=== PATIENT | female | born 1960 | race Caucasian/White ===

== ENCOUNTER 2017-12-24 09:15 | Inpatient (IN) | payer MEDICARE, MEDICAID ==
--- NOTE | 2017-12-24 09:40 | ER Document Report ---
ED Fall - General Chief Complaint: Fall Injury Stated Complaint: FALL KNEE PAIN Time Seen by Provider: 12/24/17 09:40 Mode of Arrival: Medic Information source: Patient Notes: 57 yo female psychiatric schizophrnia ([facility] of [facility]) pt that lives at [facility] slipped on wet floor and landed on bent left knee causing instant bruising, abrasion, swelling and inability to raise leg on her own. Denies back, head or neck injury or pain. Brought in by EMS. NO previous fx. Tetanus not current that the nurse can find so will update her. TRAVEL OUTSIDE OF THE [place] IN LAST 30 DAYS: No - Related data Allergies/Adverse Reactions: No Known Allergies Allergy (Verified 12/24/17 09:23) Past Medical History - General Information source: Patient - Social History Smoking Status: Unknown if Ever Smoked Frequency of alcohol use: None Drug Abuse: None Family History: Reviewed & Not Pertinent Patient has suicidal ideation: No Patient has homicidal ideation: No - Past Medical History Cardiac Medical History: Reports: Hx Hypercholesterolemia, Hx Hypertension Pulmonary Medical History: 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 GI Medical History: Reports: Hx Gastroesophageal Reflux Disease Psychiatric Medical History: Reports: Hx Depression, Hx Schizophrenia - Immunizations Hx Diphtheria, Pertussis, Tetanus Vaccination: No Review of Systems - Review of Systems Constitutional: No symptoms reported EENT: No symptoms reported Cardiovascular: No symptoms reported Respiratory: No symptoms reported Gastrointestinal: No symptoms reported Genitourinary: No symptoms reported Female Genitourinary: No symptoms reported Musculoskeletal: See HPI Skin: No symptoms reported Hematologic/Lymphatic: No symptoms reported Neurological/Psychological: No symptoms reported Physical Exam - Vital signs Vitals: Temp Pulse Resp BP Pulse Ox 97.2 F 73 16 118/71 97 12/24/17 09:25 12/24/17 09:25 12/24/17 09:25 12/24/17 09:25 12/24/17 09:25 Interpretation: Normal - General General appearance: Appears well, Alert - HEENT Head: Normocephalic, Atraumatic Eyes: Normal Pupils: PERRL Neck: Supple - Respiratory Respiratory status: No respiratory distress Chest status: Nontender Breath sounds: Normal Chest palpation: Normal - Cardiovascular Rhythm: Regular Heart sounds: Normal auscultation Murmur: No - Abdominal Inspection: Normal Distension: No distension Bowel sounds: Normal Tenderness: Nontender Organomegaly: No organomegaly - Back Back: Normal, Nontender - Extremities General upper extremity: Normal inspection, Nontender, Normal color, Normal ROM , Normal temperature General lower extremity: Tender, Edema, Other - bruising and swelling to anterior left knee, superficial abrasion, unable to lift leg off the pillow, non tender posterior knee, no swelling. No: Normal strength, Normal weight bearing - Neurological Neuro grossly intact: Yes Cognition: Normal Orientation: AAOx4 [place] Coma Scale Eye Opening: Spontaneous [place]enna Coma Scale Verbal: Oriented Jenna Coma Scale Motor: Obeys Commands [place] Coma Scale Total: 15 Speech: Normal Motor strength normal: LUE, RUE, LLE, RLE Sensory: Normal - Psychological Associated symptoms: Normal affect, Normal mood - Skin Skin Temperature: Warm Skin Moisture: Dry Skin Color: Normal Course - Re-evaluation Re-evalutation: 12/24/17 10:[address] pena, she has comminuted patellar fx with proximal traction of fragments. - Vital Signs Vital signs: Temp Pulse Resp BP Pulse Ox 97.5 F 87 16 127/60 H 100 12/25/17 10:57 12/25/17 10:57 12/25/17 10:57 12/25/17 10:57 12/25/17 10:57 - Laboratory Result Diagrams: 12/24/17 12:05 Laboratory results interpreted by me: 12/24/17 12:05 WBC 13.8 H Absolute Neutrophils 9.8 H Discharge - Discharge Clinical Impression: Patellar fracture Qualifiers: Encounter type: initial encounter Fracture type: closed Fracture morphology: comminuted Fracture alignment: displaced Laterality: left Qualified Code(s): S82.042A - Displaced comminuted fracture of left patella, initial encounter for closed fracture Condition: Good Disposition: ADMITTED INPATIENT Admitting Provider: [facility] Admitted: Surgical Floor
[2017-12-24] MEDS ORDERED: ACETAMINOPHEN 325 MG TABLET PO ONE (10:09)
--- NOTE | 2017-12-24 10:32 | RADIOLOGY REPORT (SQ) ---
EXAM DESCRIPTION: KNEE LEFT 4 VIEW COMPLETED DATE/TIME: 12/24/2017 10:06 am REASON FOR STUDY: fall fell directly on the knee cap, obvious Clinical deformity COMPARISON: None. NUMBER OF VIEWS: Four views. TECHNIQUE: AP, lateral, and both oblique radiographic images acquired of the left knee. LIMITATIONS: None. FINDINGS: MINERALIZATION: Osteopenic BONES: Acute transverse mildly comminuted fracture through the upper 3rd of the patella, with 6 cm of proximal retraction of the proximal patellar fragments. Distal femur, proximal tibia and fibula int act. JOINT: Small suprapatellar knee joint effusion SOFT TISSUES: Diffuse prepatellar soft tissue swelling. Soft tissue swelling low anterior thigh. No radiopaque foreign body or soft tissue gas OTHER: No other significant finding. IMPRESSION: Acute mildly comminuted transverse fracture of the upper 3rd patella, with proximal retr action of the upper patellar fragments by 6 mm TECHNICAL DOCUMENTATION: JOB ID: [id number] [employer]- All Rights Reserved Reading location - IP/workstation name: [email or web address]
[2017-12-24] MEDS ORDERED: DIPH/PERTUSS(ACELL)/TETANUS VAC/PF 0.5 ML SYR (>=10YO) IM ONE (10:55)
[2017-12-24] MEDS ORDERED: OXYCODONE HCL IR 5 MG TABLET PO ONE (10:55)
--- NOTE | 2017-12-24 12:23 | RADIOLOGY REPORT (SQ) ---
EXAM DESCRIPTION: CHEST SINGLE VIEW COMPLETED DATE/TIME: 12/24/2017 11:38 am REASON FOR STUDY: preop COMPARISON: 02/06/2016 EXAM PARAMETERS: NUMBER OF VIEWS: One view. TECHNIQUE: Single frontal radiographic view of the chest acquired. RADIATION DOSE: NA LIMITATIONS: None. FINDINGS: LUNGS AND PLEURA: No opacities, masses or pneumothorax. No pleural effusion. MEDIASTINUM AND HILAR STRUCTURES: No masses. Contour normal. HEART AND VASCULAR STRUCTURES: Heart normal in size. Normal vasculature. BONES: No acute findings. HARDWARE: None in the chest. OTHER: No other significant finding. IMPRESSION: NO ACUTE RADIOGRAPHIC FINDING IN THE CHEST. TECHNICAL DOCUMENTATION: JOB ID: [id number] [employer]- All Rights Reserved Reading location - IP/workstation name: [email or web address]
[2017-12-24 12:24] LABS: ABSOLUTE BASOPHILS # (AUTO) 0.1 10^3/uL (0.0-0.2); ABSOLUTE EOSINOPHILS # (AUTO) 0.1 10^3/uL (0.0-0.6); ABSOLUTE LYMPHOCYTES (AUTO) 2.7 10^3/uL (0.5-4.7); ABSOLUTE MONOCYTES (AUTO) 1.1 10^3/uL (0.1-1.4); ABSOLUTE NEUT (AUTO) 9.8 10^3/uL (1.7-8.2); BASOPHILS % (AUTO) 0.8 % (0-2); EOSINOPHILS % (AUTO) 0.7 % (0-6); HEMATOCRIT 41.6 % (36.0-47.0); HEMOGLOBIN 14.2 g/dL (12.0-15.5); LYMPHOCYTES % (AUTO) 19.3 % (13-45); MEAN CORPUSCULAR HEMOGLOBIN 31.4 pg (27.0-33.4); MEAN CORPUSCULAR HGB CONC 34.1 g/dL (32.0-36.0); MEAN CORPUSCULAR VOLUME 92 fl (80-97); MONOCYTES % (AUTO) 8.2 % (3-13); PLATELET COUNT 331 10^3/uL (150-450); RED BLOOD COUNT 4.52 10^6/uL (3.72-5.28); RED CELL DISTRIBUTION WIDTH 13.5 % (11.5-14.0); TOTAL CELLS COUNTED % (AUTO) 100 %; WHITE BLOOD COUNT 13.8 10^3/uL (4.0-10.5)
[2017-12-24 12:55] LABS: INTERNATIONAL RATION (INR) 0.94
[2017-12-24 12:56] LABS: PARTIAL THROMBOPLASTIN TIME 31.8 SEC (23.5-35.8)
[2017-12-24 13:24] LABS: APPEARANCE,URINE CLEAR; BILIRUBIN,URINE NEGATIVE (NEGATIVE); COLOR,URINE YELLOW; GLUCOSE, URINE NEGATIVE (NEGATIVE); KETONES,URINE NEGATIVE (NEGATIVE); LEUKOCYTE ESTERASE,URINE NEGATIVE (NEGATIVE); NITRITE,URINE NEGATIVE (NEGATIVE); PROTEIN,URINE NEGATIVE (NEGATIVE); URINE SPECIFIC GRAVITY 1.009; UROBILINOGEN,URINE NEGATIVE mg/dL (<2.0)
--- NOTE | 2017-12-24 19:44 | PDOC H&P ---
History of Present Illness Admission Date/PCP: 12/24/17 12:29 SHANE AVALOS MD Patient complains of: Left knee pain and swelling History of Present Illness: KATHRINE CHAPPELL is a 57 year old female female who is in assisted living for psychiatric reasons. Patient stepped slipped on a wet surface and fell onto her left knee. Immediately had pain swelling and difficulty lifting the leg. She was brought to the hospital where she was diagnosed with a displaced patella fracture on the left. Patient denies any other extremity injuries or pain or loss of consciousness. Complains of a 5 out of 5 pain over the anterior knee with inability to straight leg raise. Weakness second to pain and swelling. Denies any numbness or tingling or paresthesias. Past Medical History Cardiac Medical History: Reports: Hyperlipidema, Hypertension Pulmonary Medical History: Reports: Chronic Obstructive Pulmonary Disease (COPD ) - Emphysema Comment Only: Tuberculosis - unknown GI Medical History: Reports: Gastroesophageal Reflux Disease Psychiatric Medical History: Reports: Depression Social History Smoking Status: Unknown if Ever Smoked Frequency of Alcohol Use: None Hx Recreational Drug Use: No Drugs: None Hx Prescription Drug Abuse: No - Advance Directive Resuscitation Status: Full Code Family History Family History: Reviewed & Not Pertinent Parental Family History Reviewed: No Children Family History Reviewed: No Sibling(s) Family History Reviewed.: No Medication/Allergy Home Medications: Acetaminophen [Tylenol 325 mg Tablet] 650 mg PO Q4HP PRN 12/24/17 Albuterol Sulfate [Proair HFA Inhalation Aerosol 8.5 gm MDI] 2 puff IH Q6HP PRN 12/24/17 Aspirin [Aspirin 81 mg Chewable Tablet] 81 mg PO DAILY 12/24/17 Calcium Carbonate [Tums Chewable 500 mg Tab.chew] 1,000 mg PO ASDIR PRN Calcium Carbonate/Vitamin D3 [Calcium 500 + Vit D Caplet] 1 tab PO DAILY Cetirizine HCl [Zyrtec 10 mg Tablet] 10 mg PO DAILY 12/24/17 Clopidogrel Bisulfate [Plavix 75 mg Tablet] 75 mg PO DAILY 12/24/17 Cyanocobalamin (Vitamin B-12) [Vitamin B-12] 1,000 mcg PO DAILY 12/24/17 Divalproex Sodium [Depakote ER 250 mg Tablet] 250 mg PO BID 12/24/17 Docusate Sodium [Colace 100 mg Capsule] 200 mg PO DAILY 12/24/17 Doxepin HCl 100 mg PO QHS 12/24/17 Furosemide [Lasix 20 mg Tablet] 20 mg PO DAILY 12/24/17 Guaifenesin [Robitussin Syrup 200 mg/10 ml Ud Cup] 100 mg PO Q4HP PRN 12/24/17 Guanfacine HCl 0.5 mg PO BID 12/24/17 Isosorbide Mononitrate [Imdur 30 mg Tablet.er] 30 mg PO DAILY 12/24/17 Lisinopril [Zestril] 20 mg PO BID 12/24/17 Loperamide HCl [Imodium A-D] 2 mg PO DAILYP PRN 12/24/17 Lorazepam [Ativan 0.5 mg Tablet] 0.5 mg PO TID 12/24/17 Magnesium Hydroxide [Milk of Magnesia 30 ml Udcup] 30 ml PO BIDP PRN 12/24/17 Methylcellulose [Fiber Therapy] 1,000 mg PO BID 12/24/17 Metoprolol Tartrate [Lopressor 50 mg Tablet] 50 mg PO Q12 12/24/17 Olanzapine/Fluoxetine HCl [Symbyax 6-25 mg Capsule] 1 cap PO QHS 12/24/17 Pantoprazole Sodium [Protonix] 40 mg PO DAILY 12/24/17 Polyethylene Glycol 3350 [Miralax Powder 17 gm/Packet] 17 gm PO DAILY 12/24/17 Ranolazine [Ranexa 500 mg Tab.sr] 500 mg PO BID 12/24/17 Simvastatin [Zocor 20 mg Tablet] 20 mg PO QPM 12/24/17 Allergies/Adverse Reactions: No Known Allergies Allergy (Verified 12/24/17 09:23) Review of Systems Review of Systems: Constitutional: [PRESENT: as per HPI. ABSENT: chills, fever(s), headache(s), weight gain, weight loss] Eyes: [ABSENT: visual disturbances] Ears: [ABSENT: hearing changes] Cardiovascular: [ABSENT: chest pain, dyspnea on exertion, edema, orthropnea, palpitations] Respiratory: [ABSENT: cough, hemoptysis] Gastrointestinal: [ABSENT: abdominal pain, constipation, diarrhea, hematemesis, hematochezia, nausea, vomiting] Genitourinary: [ABSENT: dysuria, hematuria] Musculoskeletal: See HPI Integumentary: [ABSENT: rash, wounds] Neurological: [ABSENT: abnormal gait, abnormal speech, confusion, dizziness, focal weakness, syncope] Psychiatric: [ABSENT: anxiety, depression, homicidal ideation, suicidal ideation ] Endocrine: [ABSENT: cold intolerance, heat intolerance, menstrual abnormalities , polydipsia, polyuria] Hematologic/Lymphatic: [ABSENT: easy bleeding, easy bruising, lymphadenopathy] Physical Exam Vital Signs: Temp Pulse Resp BP Pulse Ox 36.3 C 72 16 121/68 100 12/24/17 14:36 12/24/17 14:36 12/24/17 14:36 12/24/17 14:36 12/24/17 14:36 Intake & Output 12/23/17 12/24/17 12/25/17 06:59 06:59 06:59 Intake Total 590 Balance 590 Weight 58.8 kg General appearance: PRESENT: no acute distress, well-nourished Eye exam: PRESENT: EOMI, other - Equally round and symmetric pupils. ABSENT: nystagmus Ear exam: PRESENT: normal external ear exam Mouth exam: PRESENT: neck supple Teeth exam: PRESENT: poor dentation Neck exam: ABSENT: lymphadenopathy, tenderness, thyromegaly Respiratory exam: PRESENT: symmetrical, unlabored. ABSENT: accessory muscle use , tachypnea Cardiovascular exam: PRESENT: RRR Pulses: PRESENT: normal dorsalis pedis pul Vascular exam: PRESENT: normal capillary refill GI/Abdominal exam: PRESENT: soft. ABSENT: organolmegaly, rebound, tenderness Neurological exam: PRESENT: awake, oriented to person, oriented to place, oriented to time Psychiatric exam: PRESENT: appropriate affect, normal mood Skin exam: PRESENT: abrasion - Over the anterior left knee about 2 mm in diameter. Superficial in nature. Adult Front & Back Image: 1 - Positive swelling effusion with tenderness to palpation and palpable gap. Unable to do straight leg raise off of the bed. Able to flex to need an 90 but patient has pain. Soft calf. Abrasion over the anterior aspect of the knee about 2 mm in diameter and only superficial. Neurovascular intact distally. Results Laboratory Results: 12/24/17 12:38 Urine Color YELLOW Urine Appearance CLEAR Urine pH 5.0 Ur Specific [place] 1.009 Urine Protein NEGATIVE Urine Glucose (UA) NEGATIVE Urine Ketones NEGATIVE Urine Blood NEGATIVE Urine Nitrite NEGATIVE Ur Leukocyte Esterase NEGATIVE Urine WBC (Auto) 1 Urine RBC (Auto) 1 Impressions: Knee X-Ray 12/24/17 09:40 IMPRESSION: Acute mildly comminuted transverse fracture of the upper 3rd patella, with proximal retraction of the upper patellar fragments by 6 mm Chest X-Ray 12/24/17 10:59 IMPRESSION: NO ACUTE RADIOGRAPHIC FINDING IN THE CHEST. Status: Image reviewed by me Assessment & Plan - Diagnosis (1) Patellar fracture Qualifiers: Encounter type: initial encounter Fracture type: closed Fracture morphology: comminuted Fracture alignment: displaced Laterality: left Qualified Code(s): S82.042A - Displaced comminuted fracture of left patella, initial encounter for closed fracture Is this a current diagnosis for this admission?: Yes Plan: 57-year-old female admitted for ORIF of her left displaced patella fracture. Discussed the risk and benefits of surgery and postoperative rehab required. Patient seemed to understand and has agreed to consent for surgery. We will keep her n.p.o. after midnight and start her on IV fluids. Meantime bedrest and knee immobilizer.
[2017-12-24] MEDS: RINGERS SOLUTION,LACTATED 1,000 ML IV PRN (21:21)
--- NOTE | 2017-12-24 22:42 | EKG REPORT ---
SEVERITY:- ABNORMAL ECG - SINUS RHYTHM PROBABLE LVH WITH SECONDARY REPOL ABNRM VS ISCHEMIA : Confirmed by: Roma Mendoza 24-Dec-2017 22:42:01
[2017-12-25] MEDS: RINGERS SOLUTION,LACTATED 1,000 ML IV PRN (05:03)
[2017-12-25] MEDS: MORPHINE SULFATE 10 MG/ML INJ IV PRN ×2 (09:31→13:18)
[2017-12-25] MEDS ORDERED: HYDROMORPHONE HCL INJ/PF 2 MG/ML AMPULE ONE (14:36)
[2017-12-25] MEDS ORDERED: PROPOFOL INJ 200 MG/20 ML VIAL IV ONE (14:36)
[2017-12-25] MEDS ORDERED: MIDAZOLAM 2 MG/2 ML INJ ONE (14:36)
[2017-12-25] MEDS ORDERED: ONDANSETRON HCL INJ/PF 4 MG/2 ML SDV ONE (14:36)
[2017-12-25] MEDS ORDERED: CEFAZOLIN INJ 1 GM VIAL ONE (14:47)
[2017-12-25] MEDS ORDERED: FENTANYL CITRATE INJ/PF 100 MCG/2 ML AMPUL IV PRN ×3 (15:01)
[2017-12-25] MEDS ORDERED: PROMETHAZINE HCL INJ 25 MG/1 ML VIAL IV PRN (15:01)
[2017-12-25] MEDS ORDERED: DIPHENHYDRAMINE HCL 50 MG/ML VIAL IV PRN (15:01)
[2017-12-25] MEDS ORDERED: MEPERIDINE HCL/PF INJ 25 MG/1 ML DISP.SYRIN IV PRN (15:01)
[2017-12-25] MEDS ORDERED: ONDANSETRON HCL INJ/PF 4 MG/2 ML SDV IV PRN (16:29)
[2017-12-25] MEDS ORDERED: RINGERS SOLUTION,LACTATED 1,000 ML IV PRN (16:29)
[2017-12-25] MEDS ORDERED: MAG HYDROX/AL HYDROX/SIMETH SUSP 30 ML UDCUP PO PRN (16:29)
--- NOTE | 2017-12-25 16:29 | Operative Report ---
Operative Report DATE OF SURGERY: 12/25/17 PREOPERATIVE DIAGNOSIS: Left patella fracture POSTOPERATIVE DIAGNOSIS: Same OPERATION: ORIF of left patella fracture SURGEON: SHAY GAFFNEY ANESTHESIA: GA TISSUE REMOVED OR ALTERED: None COMPLICATIONS: None ESTIMATED BLOOD LOSS: Less than 50 mL INTRAOPERATIVE FINDINGS: As above PROCEDURE: After receiving preoperative antibiotics in the holding area patient was brought to the operating room where she was intubated in supine position. Thigh tourniquet was applied to left upper extremity. Left knee was deemed correct site. Esmarch was used to exsanguinate the extremity and the tourniquet was inflated at 300 mmHg. A midline incision was done exposing the left patella fracture. The hematoma was evacuated and suction was used and noted there was no free bodies of loose pieces in the joint. We then proceeded to placed in the in full extension and used to point reduction clamps to reduce the fragments. C-arm pictures were taken to confirm the reduction to be adequate and acceptable. 2 K wires were then used to pin into the proximal piece all way into the distal fragment and passed through the patella tendon. We measured and then proceeded to drill and place our screws. One screw was measured 38 mm in length and the second screw measured 34. Once the fixation was intact we passed the cerclage wire through 1 of the screws that was cannulated and a passer through the second cannulated screw and then was able to crisscrossed in a [id number] in the time and the fragments together doing a tension band technique. The twisting portion was then bent and turned medially. The knee was placed in range of motion 0-90 degrees and showed no gapping or loosening. AP and lateral C-arm pictures were taken showing the final reduction and fixation. Irrigation of the wound was done and then the wound was closed with 0 Vicryl for the subcutaneous fat and 2-0 Vicryl for the dermis and gautam for skin. Xeroform 4 x 4 dressing ABD pad was applied and then overwrapped with a soft roll and Larry bandage. Tourniquet was let down and the drapes were removed and the patient was placed in a knee immobilizer. Patient was successfully extubated and sent to PACU in stable condition
[2017-12-25] MEDS ORDERED: CALCIUM CARBONATE 500 MG TAB.CHEW PO PRN (16:31)
[2017-12-25] MEDS ORDERED: GUAIFENESIN SYRP 200 MG/10 ML UDC PO PRN (16:31)
[2017-12-25] MEDS ORDERED: ACETAMINOPHEN 325 MG TABLET PO PRN (16:31)
[2017-12-25] MEDS ORDERED: (PENDING PHARMACY ID) (Loperamide Hcl [Imodium A-D] 2 MG) PO PRN (16:31)
[2017-12-25] MEDS ORDERED: ALBUTEROL SULFATE HFA (90 MCG/PUFF) 200 PUFF/8.5 GM MDI IH PRN (16:31)
[2017-12-25] MEDS ORDERED: NALOXONE HCL INJ/PF 0.4 MG/1 ML SDV ONE (17:13)
--- NOTE | 2017-12-25 17:22 | RADIOLOGY REPORT (SQ) ---
EXAM DESCRIPTION: KNEE LEFT 2 VIEWS; NO CHG FLUORO COMPLETED DATE/TIME: 12/25/2017 4:49 pm REASON FOR STUDY: ORIF LT PATELLA COMPARISON: None. FLUOROSCOPY TIME: 0.3 minutes Spot images saved to PACS. TECHNIQUE: Intra-operative images acquired during surgical procedure to evaluate progress. NUMBER OF IMAGES: 2 LIMITATIONS: None. FINDINGS: Fluoroscopy was provided for intraoperative procedure. Please refer to the operative repo rt for further discussion. IMPRESSION: IMAGE(S) OBTAINED DURING PROCEDURE. COMMENT: Quality ID [id number]: Final reports for procedures using fluoroscopy that document radiation exp osure indices, or exposure time and number of fluorographic images (if radiation exposure indices are not available) Please consult full operative report of the attending physician for description of the procedure. TECHNICAL DOCUMENTATION: JOB ID: [id number] [employer]- All Rights Reserved Reading location - IP/workstation name: [email or web address]
--- NOTE | 2017-12-25 17:22 | RADIOLOGY REPORT (SQ) ---
EXAM DESCRIPTION: KNEE LEFT 2 VIEWS; NO CHG FLUORO COMPLETED DATE/TIME: 12/25/2017 4:49 pm REASON FOR STUDY: ORIF LT PATELLA COMPARISON: None. FLUOROSCOPY TIME: 0.3 minutes Spot images saved to PACS. TECHNIQUE: Intra-operative images acquired during surgical procedure to evaluate progress. NUMBER OF IMAGES: 2 LIMITATIONS: None. FINDINGS: Fluoroscopy was provided for intraoperative procedure. Please refer to the operative repo rt for further discussion. IMPRESSION: IMAGE(S) OBTAINED DURING PROCEDURE. COMMENT: Quality ID [id number]: Final reports for procedures using fluoroscopy that document radiation exp osure indices, or exposure time and number of fluorographic images (if radiation exposure indices are not available) Please consult full operative report of the attending physician for description of the procedure. TECHNICAL DOCUMENTATION: JOB ID: [id number] [employer]- All Rights Reserved Reading location - IP/workstation name: [email or web address]
[2017-12-25] MEDS ORDERED: METHYLCELLULOSE 1000 MG PO SCH (18:00)
[2017-12-25] MEDS ORDERED: GUANFACINE HCL 0.5 MG PO SCH (18:00)
[2017-12-25] MEDS ORDERED: (PENDING PHARMACY ID) (Lisinopril [Zestril] 20 MG) PO SCH (18:00)
[2017-12-25] MEDS ORDERED: LOPERAMIDE HCL 2 MG CAPSULE PO PRN (18:33)
[2017-12-25] MEDS: CEFAZOLIN 1 GM/D5W RTU 1 GM/50 ML RTUPB IV SCH ×2 (19:29→23:36)
[2017-12-25] MEDS: LORAZEPAM 0.5 MG TABLET PO SCH (20:42)
[2017-12-25] MEDS: SENNOSIDES/DOCUSATE 8.6-50 MG 1 EACH TABLET PO SCH (20:43)
[2017-12-25] MEDS ORDERED: FLUOXETINE HCL PO SCH (22:00)
[2017-12-25] MEDS ORDERED: DOXEPIN HCL 25 MG CAPSULE PO SCH (22:00)
[2017-12-25] MEDS ORDERED: SIMVASTATIN 10 MG TABLET PO SCH (22:00)
[2017-12-25] MEDS ORDERED: (PENDING PHARMACY ID) (Doxepin Hcl [Doxepin Hcl] 100 MG) PO SCH (22:00)
[2017-12-25] MEDS ORDERED: OLANZAPINE PO SCH (22:00)
[2017-12-25] MEDS: DIVALPROEX SODIUM 250 MG TAB.SR.24H PO SCH (22:16)
[2017-12-25] MEDS: RANOLAZINE 500 MG TAB.SR.12H PO SCH (22:17)
[2017-12-25] MEDS: METOPROLOL TARTRATE 50 MG TABLET PO SCH (22:18)
[2017-12-26 05:08] LABS: HEMATOCRIT 34.3 % (36.0-47.0); MEAN CORPUSCULAR HEMOGLOBIN 31.7 pg (27.0-33.4); MEAN CORPUSCULAR HGB CONC 34.9 g/dL (32.0-36.0); MEAN CORPUSCULAR VOLUME 91 fl (80-97); PLATELET COUNT 238 10^3/uL (150-450); RED BLOOD COUNT 3.78 10^6/uL (3.72-5.28); RED CELL DISTRIBUTION WIDTH 13.5 % (11.5-14.0); WHITE BLOOD COUNT 10.7 10^3/uL (4.0-10.5)
[2017-12-26 05:27] LABS: ANION GAP 10 (5-19); BLOOD UREA NITROGEN 7 mg/dL (7-20); CALCIUM 8.8 mg/dL (8.4-10.2); CARBON DIOXIDE 25 mmol/L (22-30); CHLORIDE 105 mmol/L (98-107); GLUCOSE 127 mg/dL (75-110); POTASSIUM 4.1 mmol/L (3.6-5.0); SODIUM 140.4 mmol/L (137-145)
[2017-12-26] MEDS: CEFAZOLIN 1 GM/D5W RTU 1 GM/50 ML RTUPB IV SCH ×2 (05:27→11:23)
[2017-12-26] MEDS ORDERED: LANSOPRAZOLE 30 MG TAB.RAP.DR PO SCH (06:00)
[2017-12-26] MEDS: MORPHINE SULFATE 10 MG/ML INJ IV PRN (07:46)
[2017-12-26] MEDS ORDERED: CALCIUM CARBONATE 250 MG/VITAMIN D3 125 UNIT TABLET PO SCH (10:00)
[2017-12-26] MEDS ORDERED: PRENATAL VITAMIN W DHA CAPSULE PO SCH (10:00)
[2017-12-26] MEDS ORDERED: CYANOCOBALAMIN (VITAMIN B-12) 1,000 MCG TABLET PO SCH (10:00)
[2017-12-26] MEDS ORDERED: ASPIRIN 81 MG TABLET, CHEWABLE PO SCH (10:00)
[2017-12-26] MEDS ORDERED: FUROSEMIDE 20 MG TABLET PO SCH (10:00)
[2017-12-26] MEDS ORDERED: ISOSORBIDE MONONITRATE 30 MG TAB.ER.24H PO SCH (10:00)
[2017-12-26] MEDS ORDERED: LISINOPRIL 10 MG TABLET PO SCH (10:00)
[2017-12-26] MEDS ORDERED: POLYETHYLENE GLYCOL 3350 POWDER 17 GM/1 PACKET PO SCH (10:00)
[2017-12-26] MEDS ORDERED: (PENDING PHARMACY ID) (Calcium Carbonate/Vitamin D3 [Calcium 500 + Vit D Caplet] 1 TAB) PO SCH (10:00)
[2017-12-26] MEDS ORDERED: CETIRIZINE 10 MG TABLET PO SCH (10:00)
[2017-12-26] MEDS ORDERED: CLOPIDOGREL BISULFATE 75 MG TABLET PO SCH (10:00)
[2017-12-26] MEDS ORDERED: DOCUSATE SODIUM 100 MG CAPSULE PO SCH (10:00)
[2017-12-26] MEDS ORDERED: OXYCODONE-ACETAMINOPHEN 5-325 MG TABLET PO PRN ×2 (10:57)
[2017-12-26] MEDS ORDERED: ONDANSETRON HCL INJ/PF 4 MG/2 ML SDV IV PRN (10:57)
[2017-12-26] MEDS: RANOLAZINE 500 MG TAB.SR.12H PO SCH (11:19)
[2017-12-26] MEDS: METOPROLOL TARTRATE 50 MG TABLET PO SCH (11:20)
[2017-12-26] MEDS: DIVALPROEX SODIUM 250 MG TAB.SR.24H PO SCH (11:20)
[2017-12-26] MEDS: SENNOSIDES/DOCUSATE 8.6-50 MG 1 EACH TABLET PO SCH (11:20)
[2017-12-26] MEDS: LORAZEPAM 0.5 MG TABLET PO SCH ×2 (11:21→14:59)
--- NOTE | 2017-12-26 14:43 | PDOC DISCHARGE SUMMARY ---
General - Admit/Disc Date/PCP Admission Date/Primary Care Provider: 12/24/17 12:29 SHANE AVALOS MD Discharge Date: 12/26/17 - Discharge Diagnosis (1) Patellar fracture Is this a current diagnosis for this admission?: Yes - Additional Information Resuscitation Status: Full Code Home Medications: Acetaminophen [Tylenol 325 mg Tablet] 650 mg PO Q4HP PRN 12/24/17 Albuterol Sulfate [Proair HFA Inhalation Aerosol 8.5 gm MDI] 2 puff IH Q6HP PRN 12/24/17 Aspirin [Aspirin 81 mg Chewable Tablet] 81 mg PO DAILY 12/24/17 Calcium Carbonate [Tums Chewable 500 mg Tab.chew] 1,000 mg PO ASDIR PRN Calcium Carbonate/Vitamin D3 [Calcium 500 + Vit D Caplet] 1 tab PO DAILY Cetirizine HCl [Zyrtec 10 mg Tablet] 10 mg PO DAILY 12/24/17 Clopidogrel Bisulfate [Plavix 75 mg Tablet] 75 mg PO DAILY 12/24/17 Cyanocobalamin (Vitamin B-12) [Vitamin B-12] 1,000 mcg PO DAILY 12/24/17 Divalproex Sodium [Depakote ER 250 mg Tablet] 250 mg PO BID 12/24/17 Docusate Sodium [Colace 100 mg Capsule] 200 mg PO DAILY 12/24/17 Doxepin HCl 100 mg PO QHS 12/24/17 Furosemide [Lasix 20 mg Tablet] 20 mg PO DAILY 12/24/17 Guaifenesin [Robitussin Syrup 200 mg/10 ml Ud Cup] 100 mg PO Q4HP PRN 12/24/17 Guanfacine HCl 0.5 mg PO BID 12/24/17 Isosorbide Mononitrate [Imdur 30 mg Tablet.er] 30 mg PO DAILY 12/24/17 Lisinopril [Zestril] 20 mg PO BID 12/24/17 Loperamide HCl [Imodium A-D] 2 mg PO DAILYP PRN 12/24/17 Lorazepam [Ativan 0.5 mg Tablet] 0.5 mg PO TID 12/24/17 Magnesium Hydroxide [Milk of Magnesia 30 ml Udcup] 30 ml PO BIDP PRN 12/24/17 Methylcellulose [Fiber Therapy] 1,000 mg PO BID 12/24/17 Metoprolol Tartrate [Lopressor 50 mg Tablet] 50 mg PO Q12 12/24/17 Olanzapine/Fluoxetine HCl [Symbyax 6-25 mg Capsule] 1 cap PO QHS 12/24/17 Pantoprazole Sodium [Protonix] 40 mg PO DAILY 12/24/17 Polyethylene Glycol 3350 [Miralax Powder 17 gm/Packet] 17 gm PO DAILY 12/24/17 Ranolazine [Ranexa 500 mg Tab.sr] 500 mg PO BID 12/24/17 Simvastatin [Zocor 20 mg Tablet] 20 mg PO QPM 12/24/17 History of Present Illness Patient complains of: Left patella fracture History of Present Illness: Patient status post fall after slipping on a wet surface falling onto her left knee. Immediately she has swelling and pain and inability to straight leg. Able to stand but unable to ambulate second to pain and instability. Denies any deformity or any other extremity injuries. Denies any loss of consciousness. Denies any numbness or tingling or paresthesias. Patient was admitted to the hospital where x-rays showed a displaced patella fracture on the left side. Patient was admitted and consented to proceed with ORIF of the left patella and on today being discharged postop day 1 with a knee immobilizer weight-bear as tolerated with the immobilizer on and crutches. Hospital Course Hospital Course: 12/24 patient was admitted with left patella fracture. On 12/25 patient underwent ORIF of the left patella. Patient will be discharged on 12/26. Patient vital signs were stable throughout the admission and surgery and postoperative date. Pain is well controlled with narcotics and patient has a dressing that is dry clean and intact and is neurovascular intact. Physical Exam Vital Signs: Temp Pulse Resp BP Pulse Ox 37.3 C 108 H 18 108/73 97 12/26/17 11:02 12/26/17 11:02 12/26/17 11:02 12/26/17 11:02 12/26/17 11:02 Intake & Output 12/25/17 12/26/17 12/27/17 06:59 06:59 06:59 Intake Total 2074 2699 50 Output Total Balance 2074 2029 50 Weight 58.8 kg 59.7 kg General appearance: PRESENT: no acute distress Eye exam: PRESENT: EOMI Mouth exam: PRESENT: neck supple Neck exam: ABSENT: tenderness, thyromegaly Respiratory exam: PRESENT: symmetrical, unlabored. ABSENT: accessory muscle use , tachypnea Pulses: PRESENT: normal dorsalis pedis pul Vascular exam: PRESENT: normal capillary refill Neurological exam: PRESENT: alert, awake, oriented to person, oriented to place , oriented to time Psychiatric exam: PRESENT: appropriate affect, normal mood Skin exam: PRESENT: abrasion, other - Incision dry clean and intact Adult Front & Back Image: 1 - Dressing is dry clean and intact. Soft cast with negative Braydon and neurovascular intact distally. Immobilizer on Results Laboratory Results: 12/26/17 04:40 12/26/17 04:40 12/26/17 12/26/17 04:40 04:40 WBC 10.7 H RBC 3.78 Hgb 12.0 D Hct 34.3 L MCV 91 MCH 31.7 MCHC 34.9 RDW 13.5 Plt Count 238 Sodium 140.4 Potassium 4.1 Chloride 105 Carbon Dioxide 25 Anion Gap 10 BUN 7 Creatinine 0.73 Est GFR ( Amer) > 60 Est GFR (Non-Af Amer) > 60 Glucose 127 H Calcium 8.8 Impressions: Chest X-Ray 12/24/17 10:59 IMPRESSION: NO ACUTE RADIOGRAPHIC FINDING IN THE CHEST. Fluoroscopy 12/25/17 00:00 IMPRESSION: IMAGE(S) OBTAINED DURING PROCEDURE. Knee X-Ray 12/25/17 00:00 IMPRESSION: IMAGE(S) OBTAINED DURING PROCEDURE. Status: Image reviewed by me Qualifiers - * PATIENT BEING DISCHARGED WITH ANY OF THE FOLLOWING DIAGNOSIS: No VTE patient discharged on overlapping Therapy?: Yes
[2017-12-26 16:07] VITALS: BP 116/58
== END 2017-12-26 17:30 | DRG 517 ==
LOC: ER 09:15 → EH 12:29 → 4S 14:35
PROVIDERS: ADMIT Orthopaedic Surgery; ATTEND Orthopaedic Surgery
PROC: 3E0234Z Introduction of Serum, Toxoid and Vaccine into Muscle, Percutaneous Approach (ICD-10-PCS; 2017-12-24)
PROC: 0QSF04Z Reposition Left Patella with Internal Fixation Device, Open Approach (ICD-10-PCS; principal; 2017-12-25 13:45)
PROC: 3E02340 Introduction of Influenza Vaccine into Muscle, Percutaneous Approach (ICD-10-PCS; 2017-12-26)
DX: S82.042A Displaced comminuted fracture of left patella, initial encounter for closed fracture (principal); W01.0XXA Fall on same level from slipping, tripping and stumbling without subsequent striking against object, initial encounter; E78.00 Pure hypercholesterolemia, unspecified; I10 Essential (primary) hypertension; J43.9 Emphysema, unspecified; K21.9 Gastro-esophageal reflux disease without esophagitis; F32.9 Major depressive disorder, single episode, unspecified; F20.9 Schizophrenia, unspecified; Z23 Encounter for immunization; Z79.899 Other long term (current) drug therapy; Z79.82 Long term (current) use of aspirin
CPT/HCPCS: 01392; 36415; 71045; 80048; 81001; 85025; 85027; 85610; 85730; 90471; 90686; 90715; 93005; 93010; 94799; 99285; C1769; G0008; G8978-GP; G8979-GP; G8987-GO; G8988-GO; J0690; J1170; J2250; J2270; J2310; J2405; J2704; J3490; J7120; L1830

== ENCOUNTER 2018-01-14 09:29 | Day surgery (SDC) | payer MEDICARE, MEDICAID ==
[~2018-01-14 09:29] MED LIST: CEFAZOLIN 2 GM/D5W RTU 2 GM/50 ML RTUPB IV PRN
[2018-01-14 10:28] LABS: APPEARANCE,URINE CLEAR; BILIRUBIN,URINE NEGATIVE (NEGATIVE); COLOR,URINE STRAW; GLUCOSE, URINE NEGATIVE (NEGATIVE); KETONES,URINE NEGATIVE (NEGATIVE); LEUKOCYTE ESTERASE,URINE NEGATIVE (NEGATIVE); NITRITE,URINE NEGATIVE (NEGATIVE); PROTEIN,URINE NEGATIVE (NEGATIVE); URINE SPECIFIC GRAVITY 1.005; UROBILINOGEN,URINE NEGATIVE mg/dL (<2.0)
--- NOTE | 2018-01-14 11:14 | RADIOLOGY REPORT (SQ) ---
EXAM DESCRIPTION: CHEST SINGLE VIEW COMPLETED DATE/TIME: 01/14/2018 10:38 am REASON FOR STUDY: pre op COMPARISON: 12/24/2017 EXAM PARAMETERS: NUMBER OF VIEWS: One view. TECHNIQUE: Single frontal radiographic view of the chest acquired. RADIATION DOSE: NA LIMITATIONS: None. FINDINGS: LUNGS AND PLEURA: No opacities, masses or pneumothorax. No pleural effusion. MEDIASTINUM AND HILAR STRUCTURES: No masses. Contour normal. HEART AND VASCULAR STRUCTURES: Heart normal in size. Normal vasculature. BONES: No acute findings. HARDWARE: None in the chest. OTHER: No other significant finding. IMPRESSION: NO ACUTE RADIOGRAPHIC FINDING IN THE CHEST. TECHNICAL DOCUMENTATION: JOB ID: [id number] [employer]- All Rights Reserved Reading location - IP/workstation name: [email or web address]
[2018-01-14 11:17] LABS: HEMATOCRIT 33.3 % (36.0-47.0); HEMOGLOBIN 11.4 g/dL (12.0-15.5); MEAN CORPUSCULAR HEMOGLOBIN 30.6 pg (27.0-33.4); MEAN CORPUSCULAR HGB CONC 34.3 g/dL (32.0-36.0); MEAN CORPUSCULAR VOLUME 89 fl (80-97); PLATELET COUNT 512 10^3/uL (150-450); RED BLOOD COUNT 3.73 10^6/uL (3.72-5.28); RED CELL DISTRIBUTION WIDTH 13.9 % (11.5-14.0); WHITE BLOOD COUNT 9.3 10^3/uL (4.0-10.5)
[2018-01-14 11:22] LABS: INTERNATIONAL RATION (INR) 1.06; PROTHROMBIN TIME 14.3 SEC (11.4-15.4)
[2018-01-14 11:23] LABS: PARTIAL THROMBOPLASTIN TIME 36.3 SEC (23.5-35.8)
[2018-01-14 11:29] LABS: ANION GAP 11 (5-19); BLOOD UREA NITROGEN 6 mg/dL (7-20); CALCIUM 9.1 mg/dL (8.4-10.2); CARBON DIOXIDE 29 mmol/L (22-30); CHLORIDE 106 mmol/L (98-107); GLUCOSE 106 mg/dL (75-110); POTASSIUM 3.5 mmol/L (3.6-5.0); SODIUM 146.3 mmol/L (137-145)
[2018-01-14] MEDS ORDERED: FENTANYL CITRATE INJ/PF 100 MCG/2 ML AMPUL ONE (12:27)
[2018-01-14] MEDS ORDERED: MORPHINE SULFATE 10 MG/ML INJ ONE (12:27)
[2018-01-14] MEDS ORDERED: MIDAZOLAM 2 MG/2 ML INJ ONE (12:27)
[2018-01-14] MEDS ORDERED: ACETAMINOPHEN 1,000 MG/100 ML RTUPB IV ONE (12:28)
[2018-01-14] MEDS ORDERED: PROPOFOL INJ 200 MG/20 ML VIAL IV ONE (12:28)
[2018-01-14] MEDS ORDERED: BUPIVACAINE HCL 0.5%-EPI 1:200000 INJ/PF 30 ML VIAL ONE (13:01)
[2018-01-14] MEDS ORDERED: DIPHENHYDRAMINE HCL 50 MG/ML VIAL IV PRN (13:03)
[2018-01-14] MEDS ORDERED: FENTANYL CITRATE INJ/PF 100 MCG/2 ML AMPUL IV PRN ×3 (13:03)
[2018-01-14] MEDS ORDERED: PROMETHAZINE HCL INJ 25 MG/1 ML VIAL IV PRN ×2 (13:03)
[2018-01-14] MEDS ORDERED: MEPERIDINE HCL/PF INJ 25 MG/1 ML DISP.SYRIN IV PRN (13:03)
[2018-01-14] MEDS ORDERED: MORPHINE SULFATE 10 MG/ML INJ IV PRN (13:03)
[2018-01-14] MEDS ORDERED: SUCCINYLCHOLINE CHLORIDE INJ 200 MG/10 ML VIAL ONE (13:56)
[2018-01-14] MEDS ORDERED: DEXAMETHASONE SOD PHOSPHATE INJ 4 MG/1 ML VIAL ONE (13:56)
[2018-01-14] MEDS ORDERED: KETOROLAC TROMETHAMINE 60 MG/2 ML SDV ONE (13:56)
[2018-01-14] MEDS ORDERED: ONDANSETRON HCL INJ/PF 4 MG/2 ML SDV ONE (13:56)
--- NOTE | 2018-01-14 13:58 | Operative Report ---
Operative Report DATE OF SURGERY: 01/14/18 PREOPERATIVE DIAGNOSIS: Failed ORIF of left patella fracture POSTOPERATIVE DIAGNOSIS: Same OPERATION: Revision ORIF of left patella fracture SURGEON: SHAY GAFFNEY 1ST DIE REPAIRER FORGING: PRIMO TIRADO TISSUE REMOVED OR ALTERED: Cerclage wire and screws. COMPLICATIONS: None ESTIMATED BLOOD LOSS: Less than 20 mL INTRAOPERATIVE FINDINGS: As above PROCEDURE: After receiving preoperative antibiotics patient was brought to the operating room and received general anesthetic. Reba were removed before prepping and draping. A bump was placed under the left buttocks and a thigh tourniquet was applied to the left lower extremity. After prepping and draping the left lower extremity in a normal sterile surgical fashion timeout was done identifying the left knee is a correct site. Esmarch was used to exsanguinate the extremity and the tourniquet was inflated at 300 mmHg. I used a skin knife 10 blade to then reopen the previous longitudinal incision and dissected down to the fracture fragment. As noted proximal fragment pulled out of the fixation and hematoma was evacuated. We proceeded to remove the cerclage wire drawing setter and completed to remove the wire and screws using a screwdriver. At this point in reduction counts were used to reduce the fracture fragment and confirmed reduction on C arm. We used 0.62 K wires and after reduction was done drilled it from the distal pole into the proximal pole fragment. We then proceeded to band and the ends and use a #5 FiberWire to suture and do a cerclage tension band instead of using the cerclage wire. We also use fiber tape and used a free needle and went around the patella and did a cerclage suturing as well. Once were satisfied with the FiberWire and fiber tape and the placement of the K wires and a reduction we proceeded to close the wound. We noted replacing the knee and range of motion in the past 60 degrees there was some mild displacement of rotation so the knee will be kept at 0 degrees. Once were satisfied with our repair/revision ORIF proceeded to close the subcutaneous tissue and fat with 0 Vicryl and 2-0 Vicryl for dermis and reba for skin. We applied Xeroform 4 x 4 dressing and soft roll and overwrapped with an Larry bandage. Tourniquet was let down and drapes were removed. The left lower extremity was placed in a hinged knee brace locked at 0 degrees. Patient then was successfully transferred to PACU in a stable condition.
--- NOTE | 2018-01-14 13:58 | Discharge Summary ---
Discharge Summary (SDC) - Discharge Final Diagnosis: Revision ORIF of the left patella fracture Date of Surgery: 01/14/18 Discharge Date: 01/14/18 Condition: Good Treatment or Instructions: Keep the dressing dry clean and intact for 3 days then okay to remove and shower. To wear the hinged knee brace locked at 0 degrees and no flexing at the knee. Okay to weight-bear as tolerated with the knee locked at 0 degrees. When not ambulating keep the extremity elevated and ice. Follow-up in 10-14 days in the office. Take prescriptions as prescribed. Prescriptions: Amox Tr/Potassium Clavulanate [Augmentin 875-125 mg Tablet] 1 tab PO BID #20 tablet Oxycodone HCl/Acetaminophen [Percocet 5-325 mg Tablet] 1 - 2 tab PO ASDIR PRN # 60 tablet PRN Reason: Referrals: SHANE SHAH PA-C [Primary Care Provider] - Discharge Diet: As Tolerated Respiratory Treatments at Home: Deep Breathing/Coughing Discharge Activity: No Driving, Keep Legs Elevated, No Lifting/Push/Pulling, Slowly Increase Activity - With the brace on at all times Home Care Assistance: None Needed Adaptive Devices on Discharge: Axillary Crutches, Standard Walker Report the Following to Your Physician Immediately: Shortness of Breath, Vomiting, Increase in Pain, Fever over 101 Degrees, Unusual Bleeding, Redness, Swelling, Increased Soreness, Drainage-Yellow, Drainage-Spaulding, Drainage-Green, Drainage-Foul Smelling
--- NOTE | 2018-01-14 14:49 | RADIOLOGY REPORT (SQ) ---
EXAM DESCRIPTION: NO CHG FLUORO; KNEE LEFT 2 VIEWS COMPLETED DATE/TIME: 01/14/2018 2:24 pm REASON FOR STUDY: ORIF LEFT PATELLA ASST WITH FLUORO IN OR COMPARISON: None. FLUOROSCOPY TIME: 0.2 minutes 2 Images saved to PACS LIMITATIONS: None. PROCEDURE: ORIF left patella FINDINGS: 2 image from fluoro document placement of wires in the patella. IMPRESSION: ORIF left patella. Refer to operative note for further information. COMMENT: PQRS 6045F: Fluoroscopy time of the procedure is documented in the report. TECHNICAL DOCUMENTATION: JOB ID: [id number] [employer]- All Rights Reserved Reading location - IP/workstation name: [email or web address]
--- NOTE | 2018-01-14 14:49 | RADIOLOGY REPORT (SQ) ---
EXAM DESCRIPTION: NO CHG FLUORO; KNEE LEFT 2 VIEWS COMPLETED DATE/TIME: 01/14/2018 2:24 pm REASON FOR STUDY: ORIF LEFT PATELLA ASST WITH FLUORO IN OR COMPARISON: None. FLUOROSCOPY TIME: 0.2 minutes 2 Images saved to PACS LIMITATIONS: None. PROCEDURE: ORIF left patella FINDINGS: 2 image from fluoro document placement of wires in the patella. IMPRESSION: ORIF left patella. Refer to operative note for further information. COMMENT: PQRS 6045F: Fluoroscopy time of the procedure is documented in the report. TECHNICAL DOCUMENTATION: JOB ID: [id number] [employer]- All Rights Reserved Reading location - IP/workstation name: [email or web address]
[2018-01-14] MEDS ORDERED: OXYCODONE-ACETAMINOPHEN 5-325 MG TABLET PO PRN (14:54)
[2018-01-14] MEDS ORDERED: OXYCODONE-ACETAMINOPHEN 5-325 MG TABLET ONE (14:57)
[2018-01-14 16:45] VITALS: BP 165/90
--- NOTE | 2018-01-16 10:48 | EKG REPORT ---
SEVERITY:- ABNORMAL ECG - SINUS RHYTHM PROBABLE LVH WITH SECONDARY REPOL ABNRM BORDERLINE PROLONGED QT INTERVAL : Confirmed by: Roma Mendoza 16-Jan-2018 10:47:04
== END 2018-01-14 16:20 ==
LOC: OROUT 09:29
PROVIDERS: ATTEND Orthopaedic Surgery
DX: S82.002D Unspecified fracture of left patella, subsequent encounter for closed fracture with routine healing (principal); X58.XXXD Exposure to other specified factors, subsequent encounter; I10 Essential (primary) hypertension; E78.5 Hyperlipidemia, unspecified; F20.9 Schizophrenia, unspecified; F32.9 Major depressive disorder, single episode, unspecified; Z79.899 Other long term (current) drug therapy; Z01.818 Encounter for other preprocedural examination; I25.2 Old myocardial infarction; Z79.82 Long term (current) use of aspirin
CPT/HCPCS: 36415; 85027; 85610; 85730; 80048; 81001; 71045; 73560; 93005; 93010; 27524; L1830; C1713; J2250; J3490; J1100; J1885; J3010; A9270; J0330; J2405; J2704; J0131; 01392; J2270

== ENCOUNTER 2018-01-19 10:40 | Emergency (ER) | payer MEDICARE, MEDICAID ==
[2018-01-19 12:18] LABS: ABSOLUTE BASOPHILS # (AUTO) 0.1 10^3/uL (0.0-0.2); ABSOLUTE EOSINOPHILS # (AUTO) 0.2 10^3/uL (0.0-0.6); ABSOLUTE MONOCYTES (AUTO) 1.1 10^3/uL (0.1-1.4); ABSOLUTE NEUT (AUTO) 6.3 10^3/uL (1.7-8.2); BASOPHILS % (AUTO) 1.2 % (0-2); EOSINOPHILS % (AUTO) 1.6 % (0-6); HEMATOCRIT 31.7 % (36.0-47.0); HEMOGLOBIN 10.9 g/dL (12.0-15.5); LYMPHOCYTES % (AUTO) 20.2 % (13-45); MEAN CORPUSCULAR HEMOGLOBIN 30.3 pg (27.0-33.4); MEAN CORPUSCULAR HGB CONC 34.4 g/dL (32.0-36.0); MEAN CORPUSCULAR VOLUME 88 fl (80-97); MONOCYTES % (AUTO) 11.5 % (3-13); PLATELET COUNT 424 10^3/uL (150-450); RED BLOOD COUNT 3.59 10^6/uL (3.72-5.28); RED CELL DISTRIBUTION WIDTH 14.1 % (11.5-14.0); SEGMENTED NEUTROPHILS % (AUTO) 65.5 % (42-78); TOTAL CELLS COUNTED % (AUTO) 100 %; WHITE BLOOD COUNT 9.6 10^3/uL (4.0-10.5)
[2018-01-19 12:31] LABS: ALANINE AMINOTRANSFERASE 13 U/L (9-52); ALBUMIN 3.2 g/dL (3.5-5.0); ALKALINE PHOSPHATASE 136 U/L (38-126); ANION GAP 15 (5-19); ASPARTATE AMINO TRANSFERASE 20 U/L (14-36); BILIRUBIN,DIRECT 0.3 mg/dL (0.0-0.4); BILIRUBIN,TOTAL 0.5 mg/dL (0.2-1.3); BLOOD UREA NITROGEN 11 mg/dL (7-20); C-REACTIVE PROTEIN 73.6 mg/L (<10.0); CARBON DIOXIDE 27 mmol/L (22-30); CHLORIDE 103 mmol/L (98-107); GLUCOSE 125 mg/dL (75-110); POTASSIUM 3.2 mmol/L (3.6-5.0); SODIUM 144.5 mmol/L (137-145); TOTAL PROTEIN 6.5 g/dL (6.3-8.2)
--- NOTE | 2018-01-19 12:58 | RADIOLOGY REPORT (SQ) ---
EXAM DESCRIPTION: KNEE LEFT 2 VIEWS COMPLETED DATE/TIME: 01/19/2018 12:31 pm REASON FOR STUDY: Surgery for fractured kneecap 12/25, infected COMPARISON: 01/14/2018, 12/25/2017 NUMBER OF VIEWS: Two views. TECHNIQUE: AP and lateral radiographic images acquired of the left knee. LIMITATIONS: None. FINDINGS: MINERALIZATION: Disuse osteopenia. BONES: There is redemonstrated comminuted fracture of the left patella. Fracture fragments are now d istracted at least 1.5 cm, previously seen in apposition status post wire fixation on prior intraoper ative fluoroscopy. JOINT: Moderate knee joint effusion. SOFT TISSUES: Skin staple line over the midline knee. OTHER: No other significant finding. IMPRESSION: 1. There is a redemonstrated comminuted fracture of the left patella. Fracture fragment s are now distracted at least 1.5 cm, previously seen in apposition status post wire fixation on prio r intraoperative fluoroscopy. Findings are concerning for failure of ORIF. 2. Nonspecific knee joint effusion. TECHNICAL DOCUMENTATION: JOB ID: [id number] [employer]- All Rights Reserved Reading location - IP/workstation name: [email or web address]
--- NOTE | 2018-01-19 12:59 | ER Document Report ---
ED Extremity Problem, Lower - General Chief Complaint: Knee Pain Stated Complaint: KNEE PAIN Time Seen by Provider: 01/19/18 11:02 Notes: Patient was brought in to evaluate for possible infection of her incision where she had her left patella surgery about 3 weeks ago. She fell and broke her patella and had surgery by Dr. Yadav on December 25. There was a problem and the patient required a second procedure done January 15 and was discharged home the next day. She is currently on amoxicillin. Patient resides at [facility] and has a history of schizophrenia and is not a reliable historian. I was told that the patient's visiting nurse checked on her today and felt that she had an infection with blood and pus coming out of the incision and was sent here for evaluation. Patient tells me that she had surgery a couple of days ago and that the bleeding and drainage started a couple of days ago. I am not sure how reliable that history is. TRAVEL OUTSIDE OF THE [place] IN LAST 30 DAYS: No - Related Data Allergies/Adverse Reactions: No Known Allergies Allergy (Verified 01/19/18 15:20) Past Medical History - Social History Smoking Status: Former Smoker Chew tobacco use (# tins/day): No Frequency of alcohol use: None Drug Abuse: None Lives with: [facility] - Assisted living Family History: Reviewed & Not Pertinent Patient has suicidal ideation: No Patient has homicidal ideation: No - Past Medical History Cardiac Medical History: Reports: Hx Heart Attack - "about 2 years ago", Hx Hypercholesterolemia, Hx Hypertension Denies: Hx Coronary Artery Disease Pulmonary Medical History: 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 Comment Only: Hx Tuberculosis - unknown GI Medical History: Reports: Hx Gastroesophageal Reflux Disease Psychiatric Medical History: Reports: Hx Depression, Hx Schizophrenia Past Surgical History: Reports: Hx Hysterectomy, Hx Orthopedic Surgery - left knee - Immunizations Hx Diphtheria, Pertussis, Tetanus Vaccination: No Hx Pneumococcal Vaccination: 01/01/18 Review of Systems - Review of Systems -: Yes ROS unobtainable due to patient's medical condition - Patient has schizophrenia and does not communicate well. Physical Exam - Vital signs Vitals: Temp Pulse Resp BP Pulse Ox 98.7 F 81 18 105/56 L 98 01/19/18 10:56 01/19/18 10:56 01/19/18 10:56 01/19/18 10:56 01/19/18 10:56 Interpretation: Normal. No: Febrile Notes: PHYSICAL EXAMINATION: GENERAL: Well-appearing, in no acute distress. Talkative, but I do not think she is a reliable historian. HEAD: Atraumatic, normocephalic. EYES: Pupils equal round and reactive to light, extraocular movements intact. ENT: oropharynx clear without exudates. Moist mucous membranes. NECK: Normal range of motion, supple. LUNGS: Breath sounds clear and equal bilaterally. HEART: Regular rate and rhythm without murmurs. ABDOMEN: Soft, nontender. No guarding or rebound. No masses. BACK: No tenderness throughout entire back. EXTREMITIES: Normal range of motion without pain. Left leg in a brace. Removed it and remove the bandages from the patient's knee. There is some clear drainage coming from the inferior aspect of the incision that is present. There is some erythema in that area. I do not see actual purulent drainage. There is not much blood if any from the wound. Mild soft tissue swelling. NEUROLOGICAL: Normal speech, normal gait. Normal sensory, motor, and reflex exams. Awake, alert, and oriented x3. Cranial nerves normal. PSYCH: Normal mood, normal affect. SKIN: Warm, dry, no rashes. Course - Re-evaluation Re-evalutation: 01/19/18 19:54 Dr. Yadav, who did this patient's surgery, came to the emergency department and evaluate the patient. He does not feel that she needs to be admitted for any concern about a major infection. He thinks the drainage is mostly serous and not purulent. He says that the redness in the lower aspect of the knee was present from her previous injury. He asked that we give the patient a gram of Rocephin which I have done. He asked that I give her 5 days worth of amoxicillin and he will follow her up in his office, as she is currently scheduled. - Vital Signs Vital signs: Temp Pulse Resp BP Pulse Ox 98.1 F 76 16 134/78 H 98 01/19/18 16:45 01/19/18 16:45 01/19/18 16:45 01/19/18 16:45 01/19/18 16:45 - Laboratory Result Diagrams: 01/19/18 11:58 01/19/18 11:58 Laboratory results interpreted by me: 01/19/18 01/19/18 01/19/18 11:58 11:58 13:23 RBC 3.59 L Hgb 10.9 L Hct 31.7 L RDW 14.1 H ESR 109 H Potassium 3.2 L Glucose 125 H Alkaline Phosphatase 136 H C-Reactive Protein 73.6 H Albumin 3.2 L Discharge - Discharge Clinical Impression: Surgical wound infection Condition: Stable Disposition: HOME, SELF-CARE Additional Instructions: CELLULITIS: You have an infection of your skin and underlying soft tissues called cellulitis. This is due to bacteria, which can enter through any break in the skin, or even through an irritated hair follicle. Untreated, cellulitis will usually worsen. Antibiotics are required. Usually, warm packs or warm soaks, and elevation of the infected area are recommended. You should start getting better within 24 to 36 hours. Most infections respond quickly to the right medication. Follow-up care is important, however, to check for abscess (boil) formation, unsuspected foreign body, or resistant infection. If you develop fever, chills, or if the area of infection is becoming rapidly more swollen or painful, call the doctor at once. ANTIBIOTIC THERAPY: You have been given an antibiotic prescription. It's important that you take all the medication, unless instructed otherwise by your physician. Failure to complete the entire course can result in relapse of your condition. Common side effects of antibiotics include nausea, intestinal cramping, or diarrhea. Women may develop vaginal yeast infections, and babies can get yeast (thrush) in the mouth following the use of antibiotics. Contact your physician if you develop significant side effects from this medication. Allergy to this antibiotic can result in hives, wheezing, faintness, or itching. If symptoms of allergy occur, stop the medication and call the doctor. Rocephin You have been given an injection of an antibiotic called Rocephin ( ceftriaxone). Sometimes the injection must be combined with antibiotic pills. For some infections, such as an uncomplicated ear infection, Rocephin provides all the antibiotic that's needed. The antibiotic will be in your body for about two days. For serious infections, we usually repeat doses of Rocephin daily. Side effects are very unusual following a shot. Women may develop vaginal yeast infections, and babies can get yeast (thrush) in the mouth following the use of antibiotics. Contact your physician if you have symptoms with this medication. Allergy to this antibiotic can result in hives, wheezing, faintness, or itching. If symptoms of allergy occur, call the doctor at once. Amoxicillin Amoxicillin is a member of the penicillin family. It covers the germs likely to cause ear, bronchial, and urinary infections better than plain penicillin. Amoxicillin can be taken without regard to meals. Nausea after taking the medication is rare, but can occur. Diarrhea can occur, particularly in small children. Vaginal yeast infections and oral thrush in infants are also common. Contact your physician if these problems occur. Allergy to penicillins is common. If you have had an allergic reaction to any drug of the penicillin family, you should never take any other penicillin. Notify your doctor at once if you develop hives, itching, swelling, faintness, or shortness of breath. Less serious side effects can include nausea or diarrhea. FOLLOW-UP CARE: If you have been referred to a physician for follow-up care, call the physician s office for an appointment as you were instructed or within the next two days. If you experience worsening or a significant change in your symptoms, notify the physician immediately or return to the Emergency Department at any time for re-evaluation. Keep your follow-up visit that you have already scheduled to see Dr. Yadav in his office in the next week. Fill the prescription for amoxicillin and take it until it is finished. Prescriptions: Amoxicillin 1 tab PO TID #15 tab Referrals: SHAY ANN MD [ACTIVE STAFF] - Follow up in 3-5 days
[2018-01-19] MEDS ORDERED: CEFTRIAXONE INJ 1000 MG VIAL IV ONE (13:06)
[2018-01-19 16:54] VITALS: BP 134/78
== END 2018-01-19 16:57 | disposition home or self-care (01) ==
LOC: ER 10:40
DX: T81.49XA Infection following a procedure, other surgical site, initial encounter (principal); M25.562 Pain in left knee; G89.18 Other acute postprocedural pain; Z98.890 Other specified postprocedural states; Z87.891 Personal history of nicotine dependence; F20.9 Schizophrenia, unspecified; I10 Essential (primary) hypertension; J43.9 Emphysema, unspecified
CPT/HCPCS: 99285; 96365; 36415; 87040; 87070; 87205; 85025; 85652; 86140; 80053; 73560; J0696

== ENCOUNTER 2018-01-22 17:07 | Inpatient (IN) | payer MEDICARE, MEDICAID ==
--- NOTE | 2018-01-22 17:28 | ER Document Report ---
ED Extremity Problem, Lower - General Stated Complaint: LEFT KNEE PAIN Time Seen by Provider: 01/22/18 17:20 Notes: 57-year-old female to the emergency department complaining of the left leg/knee pain. Patient is approximately 1 month postop from a operative fix for a patellar fracture. Followed by orthopedics, . Patient currently at a assisted living facility for people with disabilities. Uncertain whether or not she is getting her pain medication. It does state on the nursing medication sheet that she should have received pain medication on the . Patient denies any fever, chills, sweats. Patient is uncertain when the last time she has had a pain medicine. TRAVEL OUTSIDE OF THE [place] IN LAST 30 DAYS: No - HPI Patient complains to provider of: Pain, Swelling Location: Knee Occurred: Last week Where: [facility] - Related Data Allergies/Adverse Reactions: No Known Allergies Allergy (Verified 01/22/18 18:04) Past Medical History - General Information source: Patient, [facility] Records - Social History Smoking Status: Smoker,Current Status Unk Frequency of alcohol use: None Drug Abuse: None Lives with: [facility] Family History: Reviewed & Not Pertinent - Past Medical History Cardiac Medical History: Reports: Hx Heart Attack - "about 2 years ago", Hx Hypercholesterolemia, Hx Hypertension Denies: Hx Coronary Artery Disease Pulmonary Medical History: 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 Denies: Hx Asthma, Hx Bronchitis, Hx Pneumonia Comment Only: Hx Tuberculosis - unknown Neurological Medical History: Denies: Hx Cerebrovascular Accident, Hx Seizures Renal/ Medical History: Denies: Hx Peritoneal Dialysis GI Medical History: Reports: Hx Gastroesophageal Reflux Disease Musculoskeletal Medical History: Denies Hx Arthritis Psychiatric Medical History: Reports: Hx Depression, Hx Schizophrenia Past Surgical History: Reports: Hx Hysterectomy, Hx Orthopedic Surgery - left knee - Immunizations Hx Diphtheria, Pertussis, Tetanus Vaccination: No Hx Pneumococcal Vaccination: 01/01/18 Review of Systems - Review of Systems Notes: Constitutional: denies: Chills, Diaphoresis, Fever, Malaise, Weakness EENT: denies: Eye discharge, Blurred vision, Tearing, Double vision, Nose congestion, Nose discharge, Throat swelling, Mouth pain Cardiovascular: denies: Palpitations, Heart racing, Orthopnea, Dyspnea, Chest pain Respiratory: denies: Cough, Hurts to breathe, Wheezing, Shortness of breath Gastrointestinal: denies: Abdominal pain, Diarrhea, Nausea, Vomiting, Black stools, bright red blood in stool Genitourinary: denies: Burning, Dysuria, Discharge, Frequency, Flank pain, Hematuria Musculoskeletal: She is complaining of pain and swelling to the left knee. There are gautam still present. Hematologic/Lymphatic: denies: Anemia, Easy bleeding, Easy bruising, Blood clots Neurological/Psychological: denies: Confusion, Dementia, Depression, Loss of consciousness Skin: No lesions, no masses, no skin breakdown, no abscesses Physical Exam - Vital signs Interpretation: Normal - General General appearance: Appears well, Alert - HEENT Head: Normocephalic, Atraumatic Eyes: Normal Pupils: PERRL - Respiratory Respiratory status: No respiratory distress Chest status: Nontender Breath sounds: Normal Chest palpation: Normal - Cardiovascular Rhythm: Regular Heart sounds: Normal auscultation Murmur: No - Abdominal Inspection: Normal Distension: No distension Bowel sounds: Normal Tenderness: Nontender Organomegaly: No organomegaly - Back Back: Normal, Nontender - Extremities General upper extremity: Normal inspection, Nontender, Normal color, Normal ROM , Normal temperature General lower extremity: Tender, Edema, Other - There is redness and swelling noted to the anterior left knee area with effusion as well as gautam that are still present. There is a small amount of breakdown in the skin. Slightly warm to the touch but no lymphangitic streaking.. No: Braydon's sign - Neurological Neuro grossly intact: Yes Cognition: Normal Orientation: AAOx4 Jenna Coma Scale Eye Opening: Spontaneous Jenna Coma Scale Verbal: Oriented Jenna Coma Scale Motor: Obeys Commands Jenna Coma Scale Total: 15 Speech: Normal Motor strength normal: LUE, RUE, LLE, RLE Sensory: Normal - Psychological Associated symptoms: Normal affect, Normal mood - Skin Skin Temperature: Warm Skin Moisture: Dry Skin Color: Normal, Other - There is some redness and breakdown to the left anterior knee with gautam present. Small amount of clear drainage. Course - Re-evaluation Re-evalutation: 01/22/18 18:03 At this time will repeat the labs that were done here a few days ago. See if anything is changed. Consult with Ortho if needed. Pain medication if needed. 01/22/18 19:47 Patient just completed a course of Augmentin and the redness is come back and gotten worse. Likely this represents worsening cellulitis versus early sepsis. Lactic acid is elevated. Potassium level is low. White blood cell count not extremely high. Still has an effusion on the knee with some redness. Approximately 1 month postop and still have gautam. More like either this represents an infection. Patient will likely need to be on some antibiotics. Will consult with OrthO and internal medicine. 01/22/18 19:49 01/22/18 20:01 Spoke with and he did see patient on Friday. States that he is not necessarily concerned about infection. She does have pretty low potassium. Will consult with medicine to see if they would be willing to admit her overnight for some IV antibiotics potassium replacement and orthopedic eval in the morning. 01/22/18 20:42 Knee X-Ray 01/22/18 17:28 IMPRESSION: Similar to prior. Status post open reduction internal fixation of patellar fracture with soft tissue swelling and joint effusion. - Laboratory Result Diagrams: 01/22/18 18:50 01/22/18 18:50 Laboratory results interpreted by me: 01/22/18 01/22/18 01/22/18 18:50 18:50 18:50 RBC 3.18 L Hgb 9.6 L Hct 28.3 L RDW 14.2 H ESR 100 H Potassium 2.8 L* Glucose 123 H Lactic Acid 2.3 H C-Reactive Protein 33.2 H Total Protein 6.0 L Albumin 2.9 L Discharge - Discharge Clinical Impression: Cellulitis of knee, left Condition: Good Disposition: ADMITTED OBSERVATION Admitting Provider: [facility] Unit Admitted: Medical Floor Referrals: SHANE SHAH PA-C [Primary Care Provider] - Follow up as needed
[2018-01-22] MEDS ORDERED: OXYCODONE-ACETAMINOPHEN 5-325 MG TABLET PO ONE (18:01)
--- NOTE | 2018-01-22 18:15 | RADIOLOGY REPORT (SQ) ---
EXAM DESCRIPTION: KNEE LEFT 2 VIEWS COMPLETED DATE/TIME: 01/22/2018 5:58 pm REASON FOR STUDY: pain COMPARISON: 01/19/2018. NUMBER OF VIEWS: Two views left knee. LIMITATIONS: None. FINDINGS: Osteopenic. Postoperative changes, status post comminuted patellar fracture repair. Ther e appears to be some separation of fragments, similar appearance compared to prior. Skin gautam rem ain in place. Soft tissue swelling. Joint effusion. OTHER: No other significant finding. IMPRESSION: Similar to prior. Status post open reduction internal fixation of patellar fracture wit h soft tissue swelling and joint effusion. TECHNICAL DOCUMENTATION: JOB ID: [id number] Reading location - IP/workstation name: [email or web address]
[2018-01-22 19:14] LABS: ABSOLUTE BASOPHILS # (AUTO) 0.1 10^3/uL (0.0-0.2); ABSOLUTE EOSINOPHILS # (AUTO) 0.3 10^3/uL (0.0-0.6); ABSOLUTE LYMPHOCYTES (AUTO) 1.9 10^3/uL (0.5-4.7); ABSOLUTE MONOCYTES (AUTO) 0.9 10^3/uL (0.1-1.4); ABSOLUTE NEUT (AUTO) 6.9 10^3/uL (1.7-8.2); BASOPHILS % (AUTO) 0.6 % (0-2); EOSINOPHILS % (AUTO) 2.7 % (0-6); HEMATOCRIT 28.3 % (36.0-47.0); HEMOGLOBIN 9.6 g/dL (12.0-15.5); MEAN CORPUSCULAR HEMOGLOBIN 30.3 pg (27.0-33.4); MEAN CORPUSCULAR HGB CONC 34.1 g/dL (32.0-36.0); MEAN CORPUSCULAR VOLUME 89 fl (80-97); MONOCYTES % (AUTO) 9.4 % (3-13); PLATELET COUNT 426 10^3/uL (150-450); RED BLOOD COUNT 3.18 10^6/uL (3.72-5.28); RED CELL DISTRIBUTION WIDTH 14.2 % (11.5-14.0); SEGMENTED NEUTROPHILS % (AUTO) 68.3 % (42-78); TOTAL CELLS COUNTED % (AUTO) 100 %; WHITE BLOOD COUNT 10.1 10^3/uL (4.0-10.5)
[2018-01-22 19:34] LABS: ALANINE AMINOTRANSFERASE 15 U/L (9-52); ALBUMIN 2.9 g/dL (3.5-5.0); ALKALINE PHOSPHATASE 109 U/L (38-126); ANION GAP 9 (5-19); ASPARTATE AMINO TRANSFERASE 16 U/L (14-36); BILIRUBIN,DIRECT 0.2 mg/dL (0.0-0.4); BILIRUBIN,TOTAL 0.3 mg/dL (0.2-1.3); BLOOD UREA NITROGEN 7 mg/dL (7-20); C-REACTIVE PROTEIN 33.2 mg/L (<10.0); CALCIUM 8.9 mg/dL (8.4-10.2); CARBON DIOXIDE 28 mmol/L (22-30); CHLORIDE 104 mmol/L (98-107); GLUCOSE 123 mg/dL (75-110)
[2018-01-22 19:40] LABS: POTASSIUM 2.8 mmol/L (3.6-5.0)
[2018-01-22] MEDS ORDERED: POTASSIUM CHLORIDE 10 MEQ CAPSULE.ER PO ONE (19:48)
[2018-01-22] MEDS ORDERED: PIPERACILLIN/TAZOBACTAM 3.375 GM VIAL IV ONE (19:48)
[2018-01-22] MEDS ORDERED: VANCOMYCIN HCL INJ 1000 MG VIAL IV ONE (19:48)
[2018-01-22 20:01] LABS: ERYTHROCYTE SEDIMENTATION RATE 100 mm/hr (0-30)
[2018-01-22] MEDS ORDERED: IPRATROPIUM/ALBUTEROL 0.5-2.5 MG/3 ML AMPUL NEB PRN (20:42)
[2018-01-22] MEDS ORDERED: MAG HYDROX/AL HYDROX/SIMETH SUSP 30 ML UDCUP PO PRN (20:42)
[2018-01-22] MEDS ORDERED: MAGNESIUM HYDROXIDE SUSP 30 ML UDCUP PO PRN (20:42)
[2018-01-22] MEDS ORDERED: CALCIUM CARBONATE 500 MG TAB.CHEW PO PRN (20:46)
[2018-01-22] MEDS ORDERED: NORMAL SALINE 1000 ML 1,000 ML IV PRN (21:00)
[2018-01-22] MEDS: POTASSI CL 20 MEQ/50 ML RIDER 20 MEQ/50 ML RTUPB IV SCH (21:09)
[2018-01-22] MEDS ORDERED: FLUOXETINE HCL PO SCH (22:00)
[2018-01-22] MEDS ORDERED: OLANZAPINE PO SCH (22:00)
[2018-01-22] MEDS: HEPARIN SOD (PORCINE) 5,000 UNIT/ML 1 ML SYRINGE SUBCUT SCH (22:33)
[2018-01-22] MEDS: METOPROLOL TARTRATE 50 MG TABLET PO SCH (22:38)
[2018-01-22] MEDS: FAMOTIDINE 20 MG TABLET PO SCH (22:39)
[2018-01-22] MEDS ORDERED: POTASSI CL 20 MEQ/50 ML RIDER 20 MEQ/50 ML RTUPB IV SCH (23:00)
[2018-01-23] MEDS: POTASSI CL 20 MEQ/50 ML RIDER 20 MEQ/50 ML RTUPB IV SCH ×3 (00:20→05:52)
[2018-01-23 05:00] LABS: ABSOLUTE EOSINOPHILS # (AUTO) 0.4 10^3/uL (0.0-0.6); ABSOLUTE LYMPHOCYTES (AUTO) 2.5 10^3/uL (0.5-4.7); ABSOLUTE MONOCYTES (AUTO) 0.8 10^3/uL (0.1-1.4); ABSOLUTE NEUT (AUTO) 4.8 10^3/uL (1.7-8.2); BASOPHILS % (AUTO) 0.5 % (0-2); EOSINOPHILS % (AUTO) 4.2 % (0-6); HEMATOCRIT 28.6 % (36.0-47.0); HEMOGLOBIN 9.6 g/dL (12.0-15.5); LYMPHOCYTES % (AUTO) 29.3 % (13-45); MEAN CORPUSCULAR HEMOGLOBIN 30.2 pg (27.0-33.4); MEAN CORPUSCULAR HGB CONC 33.7 g/dL (32.0-36.0); MEAN CORPUSCULAR VOLUME 90 fl (80-97); MONOCYTES % (AUTO) 9.1 % (3-13); PLATELET COUNT 384 10^3/uL (150-450); RED BLOOD COUNT 3.19 10^6/uL (3.72-5.28); SEGMENTED NEUTROPHILS % (AUTO) 56.9 % (42-78); TOTAL CELLS COUNTED % (AUTO) 100 %; WHITE BLOOD COUNT 8.4 10^3/uL (4.0-10.5)
[2018-01-23 05:18] LABS: ANION GAP 10 (5-19); BLOOD UREA NITROGEN 5 mg/dL (7-20); CALCIUM 8.6 mg/dL (8.4-10.2); CARBON DIOXIDE 25 mmol/L (22-30); CHLORIDE 111 mmol/L (98-107); CREATINE KINASE 27 U/L (30-135); GLUCOSE 84 mg/dL (75-110); POTASSIUM 3.6 mmol/L (3.6-5.0); SODIUM 146.2 mmol/L (137-145)
[2018-01-23] MEDS: HEPARIN SOD (PORCINE) 5,000 UNIT/ML 1 ML SYRINGE SUBCUT SCH ×3 (05:46→21:13)
--- NOTE | 2018-01-23 06:19 | PDOC H&P ---
History of Present Illness Admission Date/PCP: 01/22/18 21:02 SHANE SHAH PA-C Patient complains of: Left knee pain History of Present Illness: KATHRINE CHAPPELL is a 57 year old female with a past medical history of hypertension, coronary artery disease, depression, anxiety and recent left patellar fracture. She presents with pain, swelling and dehiscence of the surgical site, imaging reveals effusion, labs reveal elevated acute phase reactants of an ESR of 100 and potassium of 2.8. She receives empiric potassium started on empiric antibiotics and referred to the hospitalist for admission. Patient is a very poor historian. Past Medical History Cardiac Medical History: Reports: Myocardial Infarction - "about 2 years ago", Hyperlipidema, Hypertension Denies: Coronary Artery Disease Pulmonary Medical History: Reports: Chronic Obstructive Pulmonary Disease (COPD ) - Emphysema Denies: Asthma, Bronchitis, Pneumonia Comment Only: Tuberculosis - unknown Neurological Medical History: Denies: Seizures GI Medical History: Reports: Gastroesophageal Reflux Disease Musculoskeltal Medical History: Denies: Arthritis Psychiatric Medical History: Reports: Depression, General Anxiety Disorder Hematology: Denies: Anemia Past Surgical History Past Surgical History: Reports: Hysterectomy, Orthopedic Surgery - left knee Social History Information Source: Emergency Med Personnel, [facility] Records Lives with: [facility] Smoking Status: Never Smoker Frequency of Alcohol Use: None Hx Recreational Drug Use: No Drugs: None Hx Prescription Drug Abuse: No - Advance Directive Resuscitation Status: Full Code Family History Family History: Hypertension Parental Family History Reviewed: Yes Children Family History Reviewed: Yes Sibling(s) Family History Reviewed.: Yes Medication/Allergy Home Medications: Acetaminophen [Tylenol 325 mg Tablet] 650 mg PO Q4HP PRN 12/24/17 Albuterol Sulfate [Proair HFA Inhalation Aerosol 8.5 gm MDI] 2 puff IH Q6HP PRN 12/24/17 Aspirin [Aspirin 81 mg Chewable Tablet] 81 mg PO DAILY 12/24/17 Calcium Carbonate [Tums Chewable 500 mg Tab.chew] 1,000 mg PO ASDIR PRN Calcium Carbonate/Vitamin D3 [Calcium 500 + Vit D Caplet] 1 tab PO DAILY Cetirizine HCl [Zyrtec 10 mg Tablet] 10 mg PO DAILY 12/24/17 Clopidogrel Bisulfate [Plavix 75 mg Tablet] 75 mg PO DAILY 12/24/17 Cyanocobalamin (Vitamin B-12) [Vitamin B-12] 1,000 mcg PO DAILY 12/24/17 Divalproex Sodium [Depakote ER 250 mg Tablet] 250 mg PO BID 12/24/17 Docusate Sodium [Colace 100 mg Capsule] 200 mg PO DAILY 12/24/17 Doxepin HCl 100 mg PO QHS 12/24/17 Furosemide [Lasix 20 mg Tablet] 20 mg PO DAILY 12/24/17 Guaifenesin [Robitussin Syrup 200 mg/10 ml Ud Cup] 100 mg PO Q4HP PRN 12/24/17 Guanfacine HCl 0.5 mg PO BID 12/24/17 Isosorbide Mononitrate [Imdur 30 mg Tablet.er] 30 mg PO DAILY 12/24/17 Lisinopril [Zestril] 20 mg PO BID 12/24/17 Loperamide HCl [Imodium A-D] 2 mg PO DAILYP PRN 12/24/17 Lorazepam [Ativan 0.5 mg Tablet] 0.5 mg PO TID 12/24/17 Magnesium Hydroxide [Milk of Magnesia 30 ml Udcup] 30 ml PO BIDP PRN 12/24/17 Methylcellulose [Fiber Therapy] 1,000 mg PO BID 12/24/17 Metoprolol Tartrate [Lopressor 50 mg Tablet] 50 mg PO Q12 12/24/17 Olanzapine/Fluoxetine HCl [Symbyax 6-25 mg Capsule] 1 cap PO QHS 12/24/17 Pantoprazole Sodium [Protonix] 40 mg PO DAILY 12/24/17 Polyethylene Glycol 3350 [Miralax Powder 17 gm/Packet] 17 gm PO DAILY 12/24/17 Ranolazine [Ranexa 500 mg Tab.sr] 500 mg PO BID 12/24/17 Simvastatin [Zocor 20 mg Tablet] 20 mg PO QPM 12/24/17 Rivaroxaban [Xarelto 10 mg Tablet] 10 mg PO DAILY #14 tablet 12/26/17 Amox Tr/Potassium Clavulanate [Augmentin 875-125 mg Tablet] 1 tab PO BID #20 tablet 01/14/18 Oxycodone HCl/Acetaminophen [Percocet 5-325 mg Tablet] 1 - 2 tab PO ASDIR PRN # 60 tablet 01/14/18 Amoxicillin 1 tab PO TID #15 tab 01/19/18 Allergies/Adverse Reactions: No Known Allergies Allergy (Verified 01/22/18 18:04) Review of Systems Constitutional: ABSENT: chills, fever(s), headache(s), weight gain, weight loss Eyes: ABSENT: visual disturbances Ears: ABSENT: hearing changes Cardiovascular: ABSENT: chest pain, dyspnea on exertion, edema, orthropnea, palpitations Respiratory: ABSENT: cough, hemoptysis Gastrointestinal: ABSENT: abdominal pain, constipation, diarrhea, hematemesis, hematochezia, nausea, vomiting Genitourinary: ABSENT: dysuria, hematuria Musculoskeletal: ABSENT: joint swelling Integumentary: ABSENT: rash, wounds Neurological: ABSENT: abnormal gait, abnormal speech, confusion, dizziness, focal weakness, syncope Psychiatric: ABSENT: anxiety, depression, homidical ideation, suicidal ideation Endocrine: ABSENT: cold intolerance, heat intolerance, polydipsia, polyuria Hematologic/Lymphatic: ABSENT: easy bleeding, easy bruising Physical Exam Vital Signs: Temp Pulse Resp BP Pulse Ox 97.8 F 73 18 131/68 H 96 01/23/18 03:22 01/23/18 03:22 01/23/18 03:22 01/23/18 03:22 01/23/18 03:22 Intake & Output 01/21/18 01/22/18 01/23/18 11:59 11:59 11:59 Intake Total 150 Output Total 1200 Balance -1050 Weight 55.8 kg General appearance: PRESENT: mild distress, well-developed, well-nourished Head exam: PRESENT: atraumatic, normocephalic Eye exam: PRESENT: conjunctiva pink, EOMI, PERRLA. ABSENT: scleral icterus Ear exam: PRESENT: normal external ear exam Mouth exam: PRESENT: moist, tongue midline Neck exam: ABSENT: carotid bruit, JVD, lymphadenopathy, thyromegaly Respiratory exam: PRESENT: clear to auscultation azam. ABSENT: rales, rhonchi, wheezes Cardiovascular exam: PRESENT: RRR. ABSENT: diastolic murmur, rubs, systolic murmur Pulses: PRESENT: normal dorsalis pedis pul Vascular exam: PRESENT: normal capillary refill GI/Abdominal exam: PRESENT: normal bowel sounds, soft. ABSENT: distended, guarding, mass, organolmegaly, rebound, tenderness Rectal exam: PRESENT: deferred Extremities exam: PRESENT: full ROM. ABSENT: calf tenderness, clubbing, pedal edema Musculoskeletal exam: PRESENT: tenderness - Left knee erythema, swelling and dehiscence. ABSENT: deformity, dislocation, full ROM, normal inspection Neurological exam: PRESENT: alert, awake, oriented to person, oriented to place , oriented to time, oriented to situation, CN II-XII grossly intact. ABSENT: motor sensory deficit Psychiatric exam: PRESENT: appropriate affect, normal mood. ABSENT: homicidal ideation, suicidal ideation Skin exam: PRESENT: dry, intact, warm. ABSENT: cyanosis, rash Results Laboratory Results: 01/23/18 04:10 01/23/18 04:10 01/22/18 01/23/18 01/23/18 22:44 04:10 04:10 WBC 8.4 RBC 3.19 L Hgb 9.6 L Hct 28.6 L MCV 90 MCH 30.2 MCHC 33.7 RDW 14.0 Plt Count 384 Seg Neutrophils % 56.9 Lymphocytes % 29.3 Monocytes % 9.1 Eosinophils % 4.2 Basophils % 0.5 Absolute Neutrophils 4.8 Absolute Lymphocytes 2.5 Absolute Monocytes 0.8 Absolute Eosinophils 0.4 Absolute Basophils 0.0 Sodium 146.2 H Potassium 3.6 Chloride 111 H Carbon Dioxide 25 Anion Gap 10 BUN 5 L Creatinine 0.75 Est GFR ( Amer) > 60 Est GFR (Non-Af Amer) > 60 Glucose 84 Lactic Acid 1.3 Calcium 8.6 01/23/18 04:10 Creatine Kinase 27 L Impressions: Knee X-Ray 01/22/18 17:28 IMPRESSION: Similar to prior. Status post open reduction internal fixation of patellar fracture with soft tissue swelling and joint effusion. Assessment & Plan - Diagnosis (1) Septic arthritis Is this a current diagnosis for this admission?: Yes Plan: Medical floor admission, empiric antibiotics, symptomatic management, follow-up orthopedic surgery, blood culture and CBC (2) Hypokalemia Is this a current diagnosis for this admission?: Yes Plan: Secondary to #1, IV and p.o. repletion, follow-up magnesium and chemistry - Time Time Spent: 50 to 70 Minutes - Inpatient Certification Medical Necessity: Need Close Monitoring Due to Risk of Patient Decompensation
[2018-01-23] MEDS: DIVALPROEX SODIUM 250 MG TAB.SR.24H PO SCH ×2 (09:45→17:13)
[2018-01-23] MEDS: CETIRIZINE 10 MG TABLET PO SCH (09:45)
[2018-01-23] MEDS: ASPIRIN 81 MG TABLET, CHEWABLE PO SCH (09:46)
[2018-01-23] MEDS: LISINOPRIL 10 MG TABLET PO SCH ×2 (09:46→17:13)
[2018-01-23] MEDS: DOCUSATE SODIUM 100 MG CAPSULE PO SCH ×2 (09:46→17:13)
[2018-01-23] MEDS: LORAZEPAM 0.5 MG TABLET PO SCH ×3 (09:47→17:22)
[2018-01-23] MEDS: FAMOTIDINE 20 MG TABLET PO SCH ×2 (09:47→21:13)
[2018-01-23] MEDS: METOPROLOL TARTRATE 50 MG TABLET PO SCH (10:00)
--- NOTE | 2018-01-23 10:46 | PDOC PROGRESS REPORT ---
Subjective Progress Note for:: 01/23/18 Subjective:: 57-year-old female admitted for infection of her left knee. Patient states she has had increasing pain and swelling in her knee since her surgery last Friday. She has been in the emergency room on multiple occasions and was given doses of IV antibiotics and started on p.o. antibiotics. Patient denies fever chills or sweats. Current pain 06/10. Reason For Visit: SEPTIC ARTHRITIS, HYPOKALEMIA Physical Exam Vital Signs: Temp Pulse Resp BP Pulse Ox 97.9 F 74 14 145/83 H 94 01/23/18 08:07 01/23/18 09:24 01/23/18 09:24 01/23/18 08:07 01/23/18 09:24 Intake & Output 01/22/18 01/23/18 01/24/18 06:59 06:59 06:59 Intake Total 150 Output Total 1200 200 Balance -1050 -200 Weight 55.8 kg Musculoskeletal exam: PRESENT: other - Left knee: Small area centrally along the incision approximately 1 cm x 1 cm. Serosanguineous drainage. No purulent drainage. Moderate knee effusion. Erythema along the incision site. Appropriate pain with range of motion. Results Laboratory Results: 01/23/18 04:10 01/23/18 04:10 01/22/18 01/23/18 01/23/18 22:44 04:10 04:10 WBC 8.4 RBC 3.19 L Hgb 9.6 L Hct 28.6 L MCV 90 MCH 30.2 MCHC 33.7 RDW 14.0 Plt Count 384 Seg Neutrophils % 56.9 Lymphocytes % 29.3 Monocytes % 9.1 Eosinophils % 4.2 Basophils % 0.5 Absolute Neutrophils 4.8 Absolute Lymphocytes 2.5 Absolute Monocytes 0.8 Absolute Eosinophils 0.4 Absolute Basophils 0.0 Sodium 146.2 H Potassium 3.6 Chloride 111 H Carbon Dioxide 25 Anion Gap 10 BUN 5 L Creatinine 0.75 Est GFR ( Amer) > 60 Est GFR (Non-Af Amer) > 60 Glucose 84 Lactic Acid 1.3 Calcium 8.6 01/23/18 04:10 Creatine Kinase 27 L Impressions: Knee X-Ray 01/22/18 17:28 IMPRESSION: Similar to prior. Status post open reduction internal fixation of patellar fracture with soft tissue swelling and joint effusion. Assessment & Plan - Diagnosis (1) Cellulitis of knee, left Is this a current diagnosis for this admission?: Yes Plan: Patient's findings on physical examination suggest overlying cellulitis. I do not appreciate this is septic arthritis and thus I do not feel operative intervention is currently warranted would recommend continuing IV antibiotics for the next 40-72 hours and transition to p.o. antibiotics. We will continue to follow the patient.
[2018-01-23] MEDS ORDERED: (PENDING PHARMACY ID) (Loperamide Hcl [Imodium A-D] 2 MG) PO PRN (11:22)
[2018-01-23] MEDS: LOPERAMIDE HCL 2 MG CAPSULE PO PRN (12:56)
[2018-01-23] MEDS: ISOSORBIDE MONONITRATE 30 MG TAB.ER.24H PO SCH (12:56)
--- NOTE | 2018-01-23 13:53 | PDOC PROGRESS REPORT ---
Subjective Progress Note for:: 01/23/18 Subjective:: Admitted overnight. Continues to endorse left patellar pain. Mild drainage currently. Decreased movement due to pain. Denies fevers, chills, CP, SOB. Patient seen with Ortho. Reason For Visit: SEPTIC ARTHRITIS, HYPOKALEMIA Physical Exam Vital Signs: Temp Pulse Resp BP Pulse Ox 98.1 F 77 18 140/72 H 98 01/23/18 12:30 01/23/18 12:30 01/23/18 12:30 01/23/18 12:30 01/23/18 12:30 Intake & Output 01/22/18 01/23/18 01/24/18 06:59 06:59 06:59 Intake Total 150 Output Total 1200 200 Balance -1050 -200 Weight 55.8 kg General appearance: PRESENT: no acute distress, thin Head exam: PRESENT: atraumatic Mouth exam: PRESENT: moist Respiratory exam: PRESENT: unlabored. ABSENT: wheezes Cardiovascular exam: PRESENT: +S1, +S2. ABSENT: tachycardia GI/Abdominal exam: PRESENT: soft. ABSENT: tenderness Extremities exam: PRESENT: tenderness - Left knee - drainage from incision site. Effusion present with surronding erythema. Tenderness to palpation Musculoskeletal exam: PRESENT: other - Per above. Neurological exam: PRESENT: alert, awake, CN II-XII grossly intact Psychiatric exam: PRESENT: appropriate affect Skin exam: PRESENT: dry, intact Results Laboratory Results: 01/23/18 04:10 01/23/18 04:10 01/22/18 01/23/18 01/23/18 22:44 04:10 04:10 WBC 8.4 RBC 3.19 L Hgb 9.6 L Hct 28.6 L MCV 90 MCH 30.2 MCHC 33.7 RDW 14.0 Plt Count 384 Seg Neutrophils % 56.9 Lymphocytes % 29.3 Monocytes % 9.1 Eosinophils % 4.2 Basophils % 0.5 Absolute Neutrophils 4.8 Absolute Lymphocytes 2.5 Absolute Monocytes 0.8 Absolute Eosinophils 0.4 Absolute Basophils 0.0 Sodium 146.2 H Potassium 3.6 Chloride 111 H Carbon Dioxide 25 Anion Gap 10 BUN 5 L Creatinine 0.75 Est GFR ( Amer) > 60 Est GFR (Non-Af Amer) > 60 Glucose 84 Lactic Acid 1.3 Calcium 8.6 01/23/18 04:10 Creatine Kinase 27 L Impressions: Knee X-Ray 01/22/18 17:28 IMPRESSION: Similar to prior. Status post open reduction internal fixation of patellar fracture with soft tissue swelling and joint effusion. Assessment & Plan - Diagnosis (1) Cellulitis of knee, left Is this a current diagnosis for this admission?: Yes Plan: Status post open reduction internal fixation of patellar fracture. presents with left knee pain, effusion - Seen with ortho today, no urgent need for I&D at this time. Does not think this is septic arthritis - Received empiric abx coverage with IV Vanc/Zosyn, will start Unasyn on 01/23; can tailor abx based on blood culture results, which are pending - Ortho following, appreciate recs (2) Hypokalemia Is this a current diagnosis for this admission?: Yes Plan: Received IV KCl in ER. K improved today, currently 3.6 on 01/23 (3) HTN (hypertension) Qualifiers: Hypertension type: essential hypertension Qualified Code(s): I10 - Essential (primary) hypertension Is this a current diagnosis for this admission?: Yes Plan: Continue home medications including Imdur, Lisinopril, and Lopressor - Time Time Spent with patient: Less than 15 minutes Anticipated discharge: Home with Homehealth Within: within 48 hours
[2018-01-23] MEDS ORDERED: AMPICILLIN SOD/SULBACTAM 3 GM VIAL IV SCH (14:00)
[2018-01-23] MEDS: AMPICILLIN SODIUM/SULBACTAM NA 3 GM in NORMAL SALINE 100 ML IV SCH ×2 (14:51→21:13)
[2018-01-23] MEDS: RANOLAZINE 500 MG TAB.SR.12H PO SCH (17:13)
[2018-01-23] MEDS ORDERED: METHYLCELLULOSE 1000 MG PO SCH (18:00)
[2018-01-24] MEDS: AMPICILLIN SODIUM/SULBACTAM NA 3 GM in NORMAL SALINE 100 ML IV SCH ×4 (02:22→22:36)
[2018-01-24] MEDS: HEPARIN SOD (PORCINE) 5,000 UNIT/ML 1 ML SYRINGE SUBCUT SCH ×3 (05:13→22:38)
[2018-01-24] MEDS: LANSOPRAZOLE 30 MG TAB.RAP.DR PO SCH (05:14)
[2018-01-24 05:39] LABS: ANION GAP 12 (5-19); CALCIUM 8.8 mg/dL (8.4-10.2); CARBON DIOXIDE 25 mmol/L (22-30); CHLORIDE 111 mmol/L (98-107); GLUCOSE 144 mg/dL (75-110); POTASSIUM 3.1 mmol/L (3.6-5.0); SODIUM 147.9 mmol/L (137-145)
[2018-01-24 05:40] LABS: BLOOD UREA NITROGEN < 2 mg/dL (7-20)
[2018-01-24 05:44] LABS: ABSOLUTE BASOPHILS # (AUTO) 0.1 10^3/uL (0.0-0.2); ABSOLUTE EOSINOPHILS # (AUTO) 0.4 10^3/uL (0.0-0.6); ABSOLUTE LYMPHOCYTES (AUTO) 2.1 10^3/uL (0.5-4.7); ABSOLUTE NEUT (AUTO) 6.7 10^3/uL (1.7-8.2); BASOPHILS % (AUTO) 0.5 % (0-2); EOSINOPHILS % (AUTO) 3.7 % (0-6); HEMATOCRIT 30.9 % (36.0-47.0); HEMOGLOBIN 10.4 g/dL (12.0-15.5); LYMPHOCYTES % (AUTO) 20.5 % (13-45); MEAN CORPUSCULAR HEMOGLOBIN 30.1 pg (27.0-33.4); MEAN CORPUSCULAR HGB CONC 33.8 g/dL (32.0-36.0); MEAN CORPUSCULAR VOLUME 89 fl (80-97); MONOCYTES % (AUTO) 9.6 % (3-13); PLATELET COUNT 439 10^3/uL (150-450); RED BLOOD COUNT 3.47 10^6/uL (3.72-5.28); RED CELL DISTRIBUTION WIDTH 14.2 % (11.5-14.0); SEGMENTED NEUTROPHILS % (AUTO) 65.7 % (42-78); TOTAL CELLS COUNTED % (AUTO) 100 %; WHITE BLOOD COUNT 10.2 10^3/uL (4.0-10.5)
[2018-01-24] MEDS: ACETAMINOPHEN 325 MG TABLET PO PRN ×2 (08:14→15:18)
--- NOTE | 2018-01-24 08:27 | PDOC PROGRESS REPORT ---
Subjective Progress Note for:: 01/24/18 Subjective:: 57-year-old female admitted for infection of her left knee. Patient states she has had increasing pain and swelling in her knee since her surgery last Friday. She has been in the emergency room on multiple occasions and was given doses of IV antibiotics and started on p.o. antibiotics. Patient states her pain is improved today. Denies fever chills or sweats. Reason For Visit: SEPTIC ARTHRITIS, HYPOKALEMIA Physical Exam Vital Signs: Temp Pulse Resp BP Pulse Ox 98.4 F 94 16 171/93 H 99 01/24/18 04:20 01/24/18 04:20 01/24/18 04:20 01/24/18 04:20 01/24/18 04:20 Intake & Output 01/23/18 01/24/18 01/25/18 06:59 06:59 06:59 Intake Total 150 1172 Output Total 1200 550 Balance -1050 622 Weight 55.8 kg 57.3 kg Musculoskeletal exam: PRESENT: other - Left knee: Mild erythema anteriorly along the kneecap with serosanguineous drainage from the mid aspect of the wound. Moderate effusion. No purulent drainage. No calf tenderness. No streaking erythema. No lymphadenitis Results Laboratory Results: 01/24/18 05:19 01/24/18 05:19 01/24/18 01/24/18 05:19 05:19 WBC 10.2 RBC 3.47 L Hgb 10.4 L Hct 30.9 L MCV 89 MCH 30.1 MCHC 33.8 RDW 14.2 H Plt Count 439 Seg Neutrophils % 65.7 Lymphocytes % 20.5 Monocytes % 9.6 Eosinophils % 3.7 Basophils % 0.5 Absolute Neutrophils 6.7 Absolute Lymphocytes 2.1 Absolute Monocytes 1.0 Absolute Eosinophils 0.4 Absolute Basophils 0.1 Sodium 147.9 H Potassium 3.1 L Chloride 111 H Carbon Dioxide 25 Anion Gap 12 BUN < 2 L Creatinine 0.67 Est GFR ( Amer) > 60 Est GFR (Non-Af Amer) > 60 Glucose 144 H Calcium 8.8 01/23/18 04:10 Creatine Kinase 27 L Impressions: Knee X-Ray 01/22/18 17:28 IMPRESSION: Similar to prior. Status post open reduction internal fixation of patellar fracture with soft tissue swelling and joint effusion. Assessment & Plan - Diagnosis (1) Cellulitis of knee, left Is this a current diagnosis for this admission?: Yes Plan: Patient's findings on physical examination suggest overlying cellulitis. I do not appreciate this is septic arthritis and thus I do not feel operative intervention is currently warranted for infection will continue IV antibiotics. I have reviewed patient's x-rays however they do demonstrate loss of fixation on the patella fracture. Have discussed the case with operating physician who will see the patient on Friday to evaluate and determine optimal treatment plan.
[2018-01-24] MEDS: LOPERAMIDE HCL 2 MG CAPSULE PO PRN (08:38)
[2018-01-24] MEDS: DOCUSATE SODIUM 100 MG CAPSULE PO SCH ×2 (10:44→18:31)
[2018-01-24] MEDS: ASPIRIN 81 MG TABLET, CHEWABLE PO SCH (10:47)
[2018-01-24] MEDS: DIVALPROEX SODIUM 250 MG TAB.SR.24H PO SCH ×2 (10:47→18:36)
[2018-01-24] MEDS: ISOSORBIDE MONONITRATE 30 MG TAB.ER.24H PO SCH (10:47)
[2018-01-24] MEDS: LISINOPRIL 10 MG TABLET PO SCH ×2 (10:47→18:37)
[2018-01-24] MEDS: CETIRIZINE 10 MG TABLET PO SCH (10:48)
[2018-01-24] MEDS: LORAZEPAM 0.5 MG TABLET PO SCH ×3 (10:48→18:36)
[2018-01-24] MEDS: FAMOTIDINE 20 MG TABLET PO SCH ×2 (10:48→22:37)
[2018-01-24] MEDS: RANOLAZINE 500 MG TAB.SR.12H PO SCH ×2 (10:48→18:36)
[2018-01-24] MEDS ORDERED: LOPERAMIDE HCL 2 MG CAPSULE PO ONE (13:30)
[2018-01-24] MEDS ORDERED: POTASSIUM CHLORIDE 10 MEQ CAPSULE.ER PO ONE (17:16)
--- NOTE | 2018-01-24 17:33 | PDOC PROGRESS REPORT ---
Subjective Progress Note for:: 01/24/18 Subjective:: No adverse events overnight. No new complaints. She has been afebrile. When I came into the room, her left knee was in a bit of a flexed position and she was complaining about it hurting when she did that so I told her to stop doing it. Reason For Visit: SEPTIC ARTHRITIS, HYPOKALEMIA Physical Exam Vital Signs: Temp Pulse Resp BP Pulse Ox 97.8 F 89 18 152/84 H 99 01/24/18 12:24 01/24/18 12:24 01/24/18 12:24 01/24/18 12:24 01/24/18 12:24 Intake & Output 01/23/18 01/24/18 01/25/18 06:59 06:59 06:59 Intake Total 150 1172 484 Output Total 1200 550 Balance -1050 622 484 Weight 55.8 kg 57.3 kg General appearance: PRESENT: no acute distress, thin Respiratory exam: PRESENT: unlabored. ABSENT: wheezes Cardiovascular exam: PRESENT: +S1, +S2. ABSENT: tachycardia GI/Abdominal exam: PRESENT: soft. ABSENT: tenderness Extremities exam: PRESENT: tenderness - Left knee -no drainage from the incision , some purplish discoloration without mackenzie erythema. Tenderness to palpation Neurological exam: PRESENT: alert, awake, oriented x3 Psychiatric exam: PRESENT: appropriate affect Skin exam: PRESENT: dry, intact Results Laboratory Results: 01/24/18 05:19 01/24/18 05:19 01/24/18 01/24/18 05:19 05:19 WBC 10.2 RBC 3.47 L Hgb 10.4 L Hct 30.9 L MCV 89 MCH 30.1 MCHC 33.8 RDW 14.2 H Plt Count 439 Seg Neutrophils % 65.7 Lymphocytes % 20.5 Monocytes % 9.6 Eosinophils % 3.7 Basophils % 0.5 Absolute Neutrophils 6.7 Absolute Lymphocytes 2.1 Absolute Monocytes 1.0 Absolute Eosinophils 0.4 Absolute Basophils 0.1 Sodium 147.9 H Potassium 3.1 L Chloride 111 H Carbon Dioxide 25 Anion Gap 12 BUN < 2 L Creatinine 0.67 Est GFR ( Amer) > 60 Est GFR (Non-Af Amer) > 60 Glucose 144 H Calcium 8.8 01/23/18 04:10 Creatine Kinase 27 L Impressions: Knee X-Ray 01/22/18 17:28 IMPRESSION: Similar to prior. Status post open reduction internal fixation of patellar fracture with soft tissue swelling and joint effusion. Assessment & Plan - Diagnosis (1) Patellar fracture Qualifiers: Encounter type: initial encounter Fracture type: closed Fracture morphology: comminuted Fracture alignment: displaced Laterality: left Qualified Code(s): S82.042A - Displaced comminuted fracture of left patella, initial encounter for closed fracture Is this a current diagnosis for this admission?: Yes Plan: It looks like the revised patellar fracture repair is going to need another look , because the x-rays indicate that the patella is once again displaced. Per Dr. Tabares, the surgeon who performed the procedure will take a look at her on Friday. (2) Cellulitis of knee, left Is this a current diagnosis for this admission?: Yes Plan: I agree in that I do not think the joint itself is infected, and if anything it is just an overlying cellulitis at the incision site. She will continue on antibiotics. I did not have the benefit of seeing her when she was admitted so there is a chance that she could have had some improvement with antibiotics since admission. - Time Time Spent with patient: 25-34 minutes
[2018-01-25] MEDS: AMPICILLIN SODIUM/SULBACTAM NA 3 GM in NORMAL SALINE 100 ML IV SCH ×4 (03:00→20:23)
[2018-01-25 04:41] LABS: ABSOLUTE BASOPHILS # (AUTO) 0.1 10^3/uL (0.0-0.2); ABSOLUTE EOSINOPHILS # (AUTO) 0.5 10^3/uL (0.0-0.6); ABSOLUTE LYMPHOCYTES (AUTO) 2.6 10^3/uL (0.5-4.7); ABSOLUTE NEUT (AUTO) 5.6 10^3/uL (1.7-8.2); BASOPHILS % (AUTO) 0.6 % (0-2); EOSINOPHILS % (AUTO) 4.7 % (0-6); HEMATOCRIT 29.6 % (36.0-47.0); HEMOGLOBIN 9.9 g/dL (12.0-15.5); LYMPHOCYTES % (AUTO) 27.4 % (13-45); MEAN CORPUSCULAR HEMOGLOBIN 29.4 pg (27.0-33.4); MEAN CORPUSCULAR HGB CONC 33.3 g/dL (32.0-36.0); MEAN CORPUSCULAR VOLUME 88 fl (80-97); PLATELET COUNT 421 10^3/uL (150-450); RED BLOOD COUNT 3.36 10^6/uL (3.72-5.28); SEGMENTED NEUTROPHILS % (AUTO) 57.3 % (42-78); TOTAL CELLS COUNTED % (AUTO) 100 %; WHITE BLOOD COUNT 9.7 10^3/uL (4.0-10.5)
[2018-01-25 05:03] LABS: ANION GAP 9 (5-19); BLOOD UREA NITROGEN 4 mg/dL (7-20); CALCIUM 8.9 mg/dL (8.4-10.2); CARBON DIOXIDE 26 mmol/L (22-30); CHLORIDE 110 mmol/L (98-107); GLUCOSE 106 mg/dL (75-110); POTASSIUM 3.9 mmol/L (3.6-5.0); SODIUM 144.9 mmol/L (137-145)
[2018-01-25] MEDS: LANSOPRAZOLE 30 MG TAB.RAP.DR PO SCH (05:16)
[2018-01-25] MEDS: HEPARIN SOD (PORCINE) 5,000 UNIT/ML 1 ML SYRINGE SUBCUT SCH ×3 (05:16→22:50)
[2018-01-25] MEDS: RANOLAZINE 500 MG TAB.SR.12H PO SCH ×2 (09:27→18:32)
[2018-01-25] MEDS: FAMOTIDINE 20 MG TABLET PO SCH ×2 (09:27→22:50)
[2018-01-25] MEDS: METOPROLOL TARTRATE 50 MG TABLET PO SCH ×2 (09:27→23:19)
[2018-01-25] MEDS: DIVALPROEX SODIUM 250 MG TAB.SR.24H PO SCH ×2 (09:27→18:32)
[2018-01-25] MEDS: ISOSORBIDE MONONITRATE 30 MG TAB.ER.24H PO SCH (09:28)
[2018-01-25] MEDS: LISINOPRIL 10 MG TABLET PO SCH ×2 (09:28→18:32)
[2018-01-25] MEDS: ASPIRIN 81 MG TABLET, CHEWABLE PO SCH (09:28)
[2018-01-25] MEDS: CETIRIZINE 10 MG TABLET PO SCH (09:28)
[2018-01-25] MEDS: DOCUSATE SODIUM 100 MG CAPSULE PO SCH ×2 (09:28→18:33)
[2018-01-25] MEDS: LORAZEPAM 0.5 MG TABLET PO SCH ×3 (09:28→18:32)
--- NOTE | 2018-01-25 12:27 | PDOC PROGRESS REPORT ---
Subjective Progress Note for:: 01/25/18 Subjective:: 57-year-old female admitted for infection of her left knee. Patient states she has had increasing pain and swelling in her knee since her surgery last Friday. She has been in the emergency room on multiple occasions and was given doses of IV antibiotics which she has continued her hospital stay. Patient states pain is controlled. Denies fever chills or sweats. Reason For Visit: SEPTIC ARTHRITIS, HYPOKALEMIA Physical Exam Vital Signs: Temp Pulse Resp BP Pulse Ox 98.1 F 91 16 148/76 H 96 01/25/18 03:27 01/25/18 07:00 01/25/18 03:27 01/25/18 03:27 01/25/18 03:27 Intake & Output 01/24/18 01/25/18 01/26/18 06:59 06:59 06:59 Intake Total 1172 902 Output Total 550 620 Balance 622 282 Weight 57.3 kg 56 kg Musculoskeletal exam: PRESENT: other - Left knee: Ecchymosis anteriorly small wound on the mid aspect of the incision. Serosanguineous drainage. No purulent drainage. Moderate effusion. Intact plantar flexion/dorsiflexion. No streaking erythema. No calf tenderness. Results Laboratory Results: 01/25/18 04:05 01/25/18 04:05 01/25/18 01/25/18 04:05 04:05 WBC 9.7 RBC 3.36 L Hgb 9.9 L Hct 29.6 L MCV 88 MCH 29.4 MCHC 33.3 RDW 14.0 Plt Count 421 Seg Neutrophils % 57.3 Lymphocytes % 27.4 Monocytes % 10.0 Eosinophils % 4.7 Basophils % 0.6 Absolute Neutrophils 5.6 Absolute Lymphocytes 2.6 Absolute Monocytes 1.0 Absolute Eosinophils 0.5 Absolute Basophils 0.1 Sodium 144.9 Potassium 3.9 Chloride 110 H Carbon Dioxide 26 Anion Gap 9 BUN 4 L Creatinine 0.83 Est GFR ( Amer) > 60 Est GFR (Non-Af Amer) > 60 Glucose 106 Calcium 8.9 01/23/18 04:10 Creatine Kinase 27 L Impressions: Knee X-Ray 01/22/18 17:28 IMPRESSION: Similar to prior. Status post open reduction internal fixation of patellar fracture with soft tissue swelling and joint effusion. Assessment & Plan - Diagnosis (1) Cellulitis of knee, left Is this a current diagnosis for this admission?: Yes Plan: Patient's findings on physical examination suggest overlying cellulitis. I do not appreciate this is septic arthritis and thus I do not feel operative intervention is currently warranted for infection will continue IV antibiotics. I have reviewed patient's x-rays however they do demonstrate loss of fixation on the patella fracture. Have discussed the case with operating physician who will see the patient on Friday to evaluate and determine optimal treatment plan going forward
--- NOTE | 2018-01-25 15:13 | PDOC PROGRESS REPORT ---
Subjective Progress Note for:: 01/25/18 Subjective:: No adverse events overnight. No new complaints. She says she has been doing a pretty good job of not flexing her left knee too much, and it has helped keep her pain under control. No fevers. She has not noticed any substantial drainage from the incision on her left knee. Reason For Visit: SEPTIC ARTHRITIS, HYPOKALEMIA Physical Exam Vital Signs: Temp Pulse Resp BP Pulse Ox 97.8 F 90 16 146/74 H 95 01/25/18 12:00 01/25/18 14:01 01/25/18 14:01 01/25/18 12:00 01/25/18 14:01 Intake & Output 01/24/18 01/25/18 01/26/18 06:59 06:59 06:59 Intake Total 1172 902 100 Output Total 550 620 Balance 622 282 100 Weight 57.3 kg 56 kg General appearance: PRESENT: no acute distress, thin, disheveled Respiratory exam: PRESENT: unlabored. ABSENT: wheezes Cardiovascular exam: PRESENT: +S1, +S2. ABSENT: tachycardia GI/Abdominal exam: PRESENT: soft. ABSENT: tenderness Extremities exam: PRESENT: tenderness - Left knee -minor serous drainage from the incision, some purplish discoloration without mackenzie erythema. Tenderness to palpation Neurological exam: PRESENT: alert, awake, oriented x3 Psychiatric exam: PRESENT: appropriate affect Skin exam: PRESENT: dry, intact Results Laboratory Results: 01/25/18 04:05 01/25/18 04:05 01/25/18 01/25/18 04:05 04:05 WBC 9.7 RBC 3.36 L Hgb 9.9 L Hct 29.6 L MCV 88 MCH 29.4 MCHC 33.3 RDW 14.0 Plt Count 421 Seg Neutrophils % 57.3 Lymphocytes % 27.4 Monocytes % 10.0 Eosinophils % 4.7 Basophils % 0.6 Absolute Neutrophils 5.6 Absolute Lymphocytes 2.6 Absolute Monocytes 1.0 Absolute Eosinophils 0.5 Absolute Basophils 0.1 Sodium 144.9 Potassium 3.9 Chloride 110 H Carbon Dioxide 26 Anion Gap 9 BUN 4 L Creatinine 0.83 Est GFR ( Amer) > 60 Est GFR (Non-Af Amer) > 60 Glucose 106 Calcium 8.9 01/23/18 04:10 Creatine Kinase 27 L Impressions: Knee X-Ray 01/22/18 17:28 IMPRESSION: Similar to prior. Status post open reduction internal fixation of patellar fracture with soft tissue swelling and joint effusion. Assessment & Plan - Diagnosis (1) Patellar fracture Qualifiers: Encounter type: initial encounter Fracture type: closed Fracture morphology: comminuted Fracture alignment: displaced Laterality: left Qualified Code(s): S82.042A - Displaced comminuted fracture of left patella, initial encounter for closed fracture Is this a current diagnosis for this admission?: Yes Plan: It looks like the revised patellar fracture repair is going to need another look , because the x-rays indicate that the patella DrMaggie is once again displaced. Per Dr. Tabares, the surgeon who performed the procedure will take a look at her on Friday. (2) Cellulitis of knee, left Is this a current diagnosis for this admission?: Yes Plan: I agree in that I do not think the joint itself is infected, and if anything it is just an overlying cellulitis at the incision site. She will continue on antibiotics and should be able to be transitioned to oral antibiotics when she is discharged. - Time Time Spent with patient: 25-34 minutes
[2018-01-26] MEDS: AMPICILLIN SODIUM/SULBACTAM NA 3 GM in NORMAL SALINE 100 ML IV SCH ×4 (03:18→21:03)
[2018-01-26] MEDS: LANSOPRAZOLE 30 MG TAB.RAP.DR PO SCH (05:04)
[2018-01-26] MEDS: HEPARIN SOD (PORCINE) 5,000 UNIT/ML 1 ML SYRINGE SUBCUT SCH ×3 (05:04→21:03)
[2018-01-26] MEDS: LOPERAMIDE HCL 2 MG CAPSULE PO PRN ×2 (05:04→18:26)
[2018-01-26] MEDS: CETIRIZINE 10 MG TABLET PO SCH (09:51)
[2018-01-26] MEDS: RANOLAZINE 500 MG TAB.SR.12H PO SCH ×2 (09:51→18:25)
[2018-01-26] MEDS: LISINOPRIL 10 MG TABLET PO SCH ×2 (09:51→18:24)
[2018-01-26] MEDS: ISOSORBIDE MONONITRATE 30 MG TAB.ER.24H PO SCH (09:52)
[2018-01-26] MEDS: LORAZEPAM 0.5 MG TABLET PO SCH ×3 (09:53→18:27)
[2018-01-26] MEDS: FAMOTIDINE 20 MG TABLET PO SCH (09:53)
[2018-01-26] MEDS: METOPROLOL TARTRATE 50 MG TABLET PO SCH ×2 (09:53→21:02)
[2018-01-26] MEDS: DOCUSATE SODIUM 100 MG CAPSULE PO SCH ×2 (09:54→17:47)
[2018-01-26] MEDS: ASPIRIN 81 MG TABLET, CHEWABLE PO SCH (09:54)
[2018-01-26] MEDS: DIVALPROEX SODIUM 250 MG TAB.SR.24H PO SCH ×2 (10:00→21:02)
[2018-01-26] MEDS: OXYCODONE-ACETAMINOPHEN 5-325 MG TABLET PO PRN ×2 (12:37→20:57)
[2018-01-26] MEDS ORDERED: CALCIUM CARBONATE 500 MG TAB.CHEW PO PRN (14:41)
--- NOTE | 2018-01-26 16:45 | PDOC PROGRESS REPORT ---
Subjective Progress Note for:: 01/26/18 Subjective:: Patient complaining of pain in her left knee. She also complained of diarrhea which is somewhat chronic but appears to be worse since being on IV antibiotics. Reason For Visit: SEPTIC ARTHRITIS, HYPOKALEMIA Physical Exam Vital Signs: Temp Pulse Resp BP Pulse Ox 98.5 F 65 16 133/66 H 95 01/26/18 15:57 01/26/18 15:57 01/26/18 15:57 01/26/18 15:57 01/26/18 15:57 Intake & Output 01/25/18 01/26/18 01/27/18 06:59 06:59 06:59 Intake Total 902 1461 100 Output Total 620 Balance 282 1461 100 Weight 56 kg 57.1 kg General appearance: PRESENT: no acute distress, well-developed, well-nourished Head exam: PRESENT: atraumatic, normocephalic Eye exam: PRESENT: conjunctiva pink, EOMI, PERRLA. ABSENT: scleral icterus Ear exam: PRESENT: normal external ear exam Mouth exam: PRESENT: moist, tongue midline Neck exam: ABSENT: carotid bruit, JVD, lymphadenopathy, thyromegaly Respiratory exam: PRESENT: clear to auscultation azam. ABSENT: rales, rhonchi, wheezes Cardiovascular exam: PRESENT: RRR. ABSENT: diastolic murmur, rubs, systolic murmur Pulses: PRESENT: normal dorsalis pedis pul Vascular exam: PRESENT: normal capillary refill GI/Abdominal exam: PRESENT: normal bowel sounds, soft. ABSENT: distended, guarding, mass, organolmegaly, rebound, tenderness Rectal exam: PRESENT: deferred Extremities exam: ABSENT: calf tenderness, clubbing, pedal edema Musculoskeletal exam: PRESENT: other - Left knee swollen with diminished range of movement Neurological exam: PRESENT: alert, awake, oriented to person, oriented to place , oriented to time, oriented to situation, CN II-XII grossly intact. ABSENT: motor sensory deficit Psychiatric exam: PRESENT: appropriate affect, normal mood. ABSENT: homicidal ideation, suicidal ideation Skin exam: PRESENT: dry, intact, warm. ABSENT: cyanosis, rash Results Laboratory Results: 01/25/18 04:05 01/25/18 04:05 01/23/18 04:10 Creatine Kinase 27 L Impressions: Knee X-Ray 01/22/18 17:28 IMPRESSION: Similar to prior. Status post open reduction internal fixation of patellar fracture with soft tissue swelling and joint effusion. Assessment & Plan - Time Time Spent with patient: 15-24 minutes Medications reviewed and adjusted accordingly: Yes Anticipated discharge: Home Within: within 48 hours - Inpatient Certification Based on my medical assessment, after consideration of the patient's comorbidities, presenting symptoms, or acuity I expect that the services needed warrant INPATIENT care.: Yes Medical Necessity: Need for IV Antibiotics, Need for Surgery - Plan Summary Plan Summary: Left patella fracture that appears patient has had recurrent problems with this as recently as last week and that she is awaiting orthopedic intervention again once reassessed. 2. Left knee cellulitis around the left patella we will continue current antibiotics 3. Diarrhea which is chronic we will hold her abdomen was sent by antibiotics. We will place her on Imodium as needed as scheduled
--- NOTE | 2018-01-26 17:52 | PDOC PROGRESS REPORT ---
Subjective Progress Note for:: 01/26/18 Subjective:: Patient resting comfortably in bed. Denies any fevers or chills overnight. Pain adequately controlled. Reason For Visit: SEPTIC ARTHRITIS, HYPOKALEMIA Physical Exam Vital Signs: Temp Pulse Resp BP Pulse Ox 36.9 C 65 16 133/66 H 95 01/26/18 15:57 01/26/18 15:57 01/26/18 15:57 01/26/18 15:57 01/26/18 15:57 Intake & Output 01/25/18 01/26/18 01/27/18 06:59 06:59 06:59 Intake Total 902 1461 200 Output Total 620 Balance 282 1461 200 Weight 56 kg 57.1 kg Adult Front & Back Image: 1 - Reba are dry clean and intact. 90% of the incision is healed and no cellulitis noted no drainage. There is one area in the middle of the wound with some skin breakdown. Minimal tenderness to palpation. Neurovascular intact distally. Results Laboratory Results: 01/25/18 04:05 01/25/18 04:05 01/23/18 04:10 Creatine Kinase 27 L Impressions: Knee X-Ray 01/22/18 17:28 IMPRESSION: Similar to prior. Status post open reduction internal fixation of patellar fracture with soft tissue swelling and joint effusion. Status: Image reviewed by me Assessment & Plan - Diagnosis (1) Patellar fracture Qualifiers: Encounter type: initial encounter Fracture type: closed Fracture morphology: comminuted Fracture alignment: displaced Laterality: left Qualified Code(s): S82.042A - Displaced comminuted fracture of left patella, initial encounter for closed fracture Is this a current diagnosis for this admission?: Yes Plan: 57-year-old female with failed revision ORIF of her left patella with possibly surgical wound infection. Today the incision is looking like it is healing nicely with one area of concern. X-rays showed failed fixation that will require revision surgery. Ordering sed rate and CRP and will consider proceeding on for removal of hardware and potential revision ORIF of the left patella instead of using hardware plan to use suture and to do quadriceps tendon repair but doing bone tunnels to the patella to see if this will hold the fragments together. Also will place her in a cast to make the patient compliant after finding out that therapy had found her with her knee bent at her facility and not using the brace appropriately.
[2018-01-27] MEDS: AMPICILLIN SODIUM/SULBACTAM NA 3 GM in NORMAL SALINE 100 ML IV SCH ×2 (03:08→10:52)
[2018-01-27] MEDS: LANSOPRAZOLE 30 MG TAB.RAP.DR PO SCH (05:30)
[2018-01-27] MEDS: HEPARIN SOD (PORCINE) 5,000 UNIT/ML 1 ML SYRINGE SUBCUT SCH ×3 (05:30→21:46)
[2018-01-27] MEDS: ASPIRIN 81 MG TABLET, CHEWABLE PO SCH (10:52)
[2018-01-27] MEDS: METOPROLOL TARTRATE 50 MG TABLET PO SCH ×2 (10:52→21:45)
[2018-01-27] MEDS: DIVALPROEX SODIUM 250 MG TAB.SR.24H PO SCH ×2 (10:52→21:45)
[2018-01-27] MEDS: LISINOPRIL 10 MG TABLET PO SCH ×2 (10:53→17:46)
[2018-01-27] MEDS: ISOSORBIDE MONONITRATE 30 MG TAB.ER.24H PO SCH (10:53)
[2018-01-27] MEDS: CETIRIZINE 10 MG TABLET PO SCH (10:53)
[2018-01-27] MEDS: DOCUSATE SODIUM 100 MG CAPSULE PO SCH ×2 (10:54→17:44)
[2018-01-27] MEDS: RANOLAZINE 500 MG TAB.SR.12H PO SCH ×2 (10:54→17:47)
[2018-01-27] MEDS: LOPERAMIDE HCL 2 MG CAPSULE PO SCH (10:54)
[2018-01-27] MEDS: LORAZEPAM 0.5 MG TABLET PO SCH ×3 (10:56→17:47)
[2018-01-27] MEDS: LOPERAMIDE HCL 2 MG CAPSULE PO PRN (17:49)
[2018-01-27] MEDS: CEFAZOLIN 1 GM/D5W RTU 1 GM/50 ML RTUPB IV SCH (18:34)
[2018-01-28 05:08] LABS: ABSOLUTE BASOPHILS # (AUTO) 0.1 10^3/uL (0.0-0.2); ABSOLUTE EOSINOPHILS # (AUTO) 0.4 10^3/uL (0.0-0.6); ABSOLUTE LYMPHOCYTES (AUTO) 3.3 10^3/uL (0.5-4.7); ABSOLUTE MONOCYTES (AUTO) 0.9 10^3/uL (0.1-1.4); BASOPHILS % (AUTO) 0.6 % (0-2); EOSINOPHILS % (AUTO) 4.4 % (0-6); HEMATOCRIT 27.3 % (36.0-47.0); HEMOGLOBIN 9.3 g/dL (12.0-15.5); LYMPHOCYTES % (AUTO) 34.4 % (13-45); MEAN CORPUSCULAR HEMOGLOBIN 30.4 pg (27.0-33.4); MEAN CORPUSCULAR HGB CONC 34.2 g/dL (32.0-36.0); MEAN CORPUSCULAR VOLUME 89 fl (80-97); MONOCYTES % (AUTO) 9.5 % (3-13); PLATELET COUNT 422 10^3/uL (150-450); RED BLOOD COUNT 3.07 10^6/uL (3.72-5.28); RED CELL DISTRIBUTION WIDTH 14.4 % (11.5-14.0); SEGMENTED NEUTROPHILS % (AUTO) 51.1 % (42-78); TOTAL CELLS COUNTED % (AUTO) 100 %; WHITE BLOOD COUNT 9.7 10^3/uL (4.0-10.5)
[2018-01-28 05:28] LABS: ANION GAP 7 (5-19); BLOOD UREA NITROGEN 7 mg/dL (7-20); CARBON DIOXIDE 27 mmol/L (22-30); CHLORIDE 110 mmol/L (98-107); GLUCOSE 91 mg/dL (75-110); POTASSIUM 4.3 mmol/L (3.6-5.0); SODIUM 143.8 mmol/L (137-145)
[2018-01-28] MEDS: LANSOPRAZOLE 30 MG TAB.RAP.DR PO SCH (05:29)
[2018-01-28] MEDS: CEFAZOLIN 1 GM/D5W RTU 1 GM/50 ML RTUPB IV SCH ×5 (06:54→23:19)
--- NOTE | 2018-01-28 09:29 | RADIOLOGY REPORT (SQ) ---
EXAM DESCRIPTION: PICC INSERTION; FLUORO/CV PLACEMENT; U/S GUIDE FOR VASCULAR ACCESS COMPLETED DATE/TIME: 01/28/2018 9:17 am REASON FOR STUDY: Need IV antibiotics; IV ABX COMPARISON: Chest film 01/14/2018 FLUOROSCOPY TIME: 1 minutes 3 8 digital fluoroscopic chest films, 1 ultrasound images saved to PACS. TECHNIQUE: Fluoroscopic and ultrasound guided PICC placement. LIMITATIONS: None. PROCEDURE: After written consent and assessment were obtained, the patient was brought into the fluo roscopy room and placed supine on the table. Ultrasound evaluation of potential access sites were per formed. After successfully identifying a patent distal basilic vein, the right arm was prepped and dr aped in a sterile fashion along with the ultrasound probe. The entry site was anesthetized with 1% li docaine. A 21 gauge 7 cm needle was advanced through the skin and into the basilic vein under live ul trasound guidance. An ultrasound image was saved to PACS confirming access site. A .018 guide wire was then inserted through the needle and into the venous system. The needle was then removed and an 1 1 blade scalpel was used to make a 1cm skin incision. A 5 fr peel-away sheath was advanced over the wire and into the venous system. A measurement was then made using the existing wire and live fluoros copic guidance. The wire was then removed and trimmed. The PICC was advanced through the peel-away sh eath and into the venous system. The peel-away sheath was removed and the catheter was adhered to the patients arm with a stat lock. The catheter was then aspirated and flushed and a sterile bandage was placed over the access site. A fluoroscopic spot image was saved to PACS confirming the catheter ti p within the superior vena cava. IMPRESSION: SUCCESSFUL PLACEMENT OF A 5 FR DUAL LUMEN 30 CM PICC IN THE RIGHT BASILIC VEIN. COMMENT: Patient medication list reviewed: Yes- Quality ID# 130:Eligible professional attests to melanie orellana in the medical record they obtained, updated, or reviewed the patient's current medications. . Quality ID 145: Final reports for procedures using fluoroscopy that document radiation exposure gini heather, or exposure time and number of fluorographic images (if radiation exposure indices are not avail able) Quality ID #76: The patient was prepped and draped using maximum sterile barrier technique including cap, mask, sterile gown, sterile gloves, a large sterile sheet, hand hygiene, and 2% Chlorhexidine fo r cutaneous antisepsis. When ultrasound is used, sterile ultrasound techniques are followed requiring sterile gel and sterile probes. TECHNICAL DOCUMENTATION: JOB ID: [id number] [employer]- All Rights Reserved rev-07/18 Reading location - IP/workstation name: [email or web address]
[2018-01-28] MEDS: LISINOPRIL 10 MG TABLET PO SCH ×2 (11:02→17:29)
[2018-01-28] MEDS: METOPROLOL TARTRATE 50 MG TABLET PO SCH ×2 (11:02→21:39)
[2018-01-28] MEDS: ASPIRIN 81 MG TABLET, CHEWABLE PO SCH (11:02)
[2018-01-28] MEDS: ISOSORBIDE MONONITRATE 30 MG TAB.ER.24H PO SCH (11:02)
[2018-01-28] MEDS: DIVALPROEX SODIUM 250 MG TAB.SR.24H PO SCH ×2 (11:02→21:39)
[2018-01-28] MEDS: CETIRIZINE 10 MG TABLET PO SCH (11:02)
[2018-01-28] MEDS: LORAZEPAM 0.5 MG TABLET PO SCH ×3 (11:02→18:56)
[2018-01-28] MEDS: RANOLAZINE 500 MG TAB.SR.12H PO SCH ×2 (11:03→17:30)
[2018-01-28] MEDS: DOCUSATE SODIUM 100 MG CAPSULE PO SCH (11:03)
[2018-01-28] MEDS: LOPERAMIDE HCL 2 MG CAPSULE PO SCH (13:18)
--- NOTE | 2018-01-28 13:48 | PDOC PROGRESS REPORT ---
Subjective Progress Note for:: 01/28/18 Subjective:: Patient still has loose BM however this is chronic. Awaiting OR in am Reason For Visit: SEPTIC ARTHRITIS, HYPOKALEMIA Physical Exam Vital Signs: Temp Pulse Resp BP Pulse Ox 97.9 F 72 17 146/72 H 97 01/28/18 11:32 01/28/18 11:32 01/28/18 11:32 01/28/18 11:32 01/28/18 11:32 Intake & Output 01/27/18 01/28/18 01/29/18 06:59 06:59 06:59 Intake Total 873 667 Output Total 300 Balance 873 367 Weight 57.1 kg 57.1 kg General appearance: PRESENT: no acute distress, well-developed, other - chronically ill looking Head exam: PRESENT: atraumatic, normocephalic Eye exam: PRESENT: conjunctiva pink, EOMI, PERRLA. ABSENT: scleral icterus Ear exam: PRESENT: normal external ear exam Mouth exam: PRESENT: moist, tongue midline Neck exam: ABSENT: carotid bruit, JVD, lymphadenopathy, thyromegaly Respiratory exam: PRESENT: clear to auscultation azam. ABSENT: rales, rhonchi, wheezes Cardiovascular exam: PRESENT: RRR. ABSENT: diastolic murmur, rubs, systolic murmur Pulses: PRESENT: normal dorsalis pedis pul Vascular exam: PRESENT: normal capillary refill GI/Abdominal exam: PRESENT: normal bowel sounds, soft. ABSENT: distended, guarding, mass, organolmegaly, rebound, tenderness Rectal exam: PRESENT: deferred Extremities exam: PRESENT: full ROM, other - L knee swelling. ABSENT: calf tenderness, clubbing, pedal edema Neurological exam: PRESENT: alert, awake, oriented to person, oriented to place , oriented to time, oriented to situation, CN II-XII grossly intact. ABSENT: motor sensory deficit Psychiatric exam: PRESENT: appropriate affect, normal mood. ABSENT: homicidal ideation, suicidal ideation Skin exam: PRESENT: dry, intact, warm. ABSENT: cyanosis, rash Results Laboratory Results: 01/28/18 04:07 01/28/18 04:07 01/28/18 01/28/18 04:07 04:07 WBC 9.7 RBC 3.07 L Hgb 9.3 L Hct 27.3 L MCV 89 MCH 30.4 MCHC 34.2 RDW 14.4 H Plt Count 422 Seg Neutrophils % 51.1 Lymphocytes % 34.4 Monocytes % 9.5 Eosinophils % 4.4 Basophils % 0.6 Absolute Neutrophils 5.0 Absolute Lymphocytes 3.3 Absolute Monocytes 0.9 Absolute Eosinophils 0.4 Absolute Basophils 0.1 Sodium 143.8 Potassium 4.3 Chloride 110 H Carbon Dioxide 27 Anion Gap 7 BUN 7 Creatinine 0.83 Est GFR ( Amer) > 60 Est GFR (Non-Af Amer) > 60 Glucose 91 Calcium 9.0 01/23/18 04:10 Creatine Kinase 27 L Impressions: Knee X-Ray 01/22/18 17:28 IMPRESSION: Similar to prior. Status post open reduction internal fixation of patellar fracture with soft tissue swelling and joint effusion. Guidance Fluoroscopy 01/28/18 00:00 IMPRESSION: SUCCESSFUL PLACEMENT OF A 5 FR DUAL LUMEN 30 CM PICC IN THE RIGHT BASILIC VEIN. Interventional Vascular Procedure 01/28/18 00:00 IMPRESSION: SUCCESSFUL PLACEMENT OF A 5 FR DUAL LUMEN 30 CM PICC IN THE RIGHT BASILIC VEIN. PICC Line Insertion 01/28/18 00:00 IMPRESSION: SUCCESSFUL PLACEMENT OF A 5 FR DUAL LUMEN 30 CM PICC IN THE RIGHT BASILIC VEIN. Assessment & Plan - Time Time Spent with patient: 15-24 minutes Medications reviewed and adjusted accordingly: Yes Anticipated discharge: Acute Rehab Within: within 72 hours - Inpatient Certification Based on my medical assessment, after consideration of the patient's comorbidities, presenting symptoms, or acuity I expect that the services needed warrant INPATIENT care.: Yes Medical Necessity: Need for Surgery - Plan Summary Plan Summary: 1. Left patella fracture that appears patient has had recurrent problems with this as recently as last week Currently awaiting orthopedic intervention in am 2. Left knee cellulitis around the left patella -On Cefazolin 3. Diarrhea which is chronic - add Questran to Imodium
[2018-01-28] MEDS: CHOLESTYRAMINE/ASPARTAME 4 GM PACKET PO SCH (17:30)
[2018-01-28] MEDS: RINGERS SOLUTION,LACTATED 1,000 ML IV PRN (21:34)
[2018-01-28] MEDS: NORMAL SALINE 10 ML SDV (SCHEDULED) IV SCH (21:39)
[2018-01-29] MEDS: LOPERAMIDE HCL 2 MG CAPSULE PO PRN ×2 (00:05→21:32)
[2018-01-29] MEDS: CEFAZOLIN 1 GM/D5W RTU 1 GM/50 ML RTUPB IV SCH ×4 (05:46→23:12)
[2018-01-29] MEDS: LANSOPRAZOLE 30 MG TAB.RAP.DR PO SCH (05:49)
[2018-01-29] MEDS ORDERED: SUCCINYLCHOLINE CHLORIDE INJ 200 MG/10 ML VIAL ONE (10:00)
[2018-01-29] MEDS ORDERED: ONDANSETRON HCL INJ/PF 4 MG/2 ML SDV ONE (10:00)
[2018-01-29] MEDS: ASPIRIN 81 MG TABLET, CHEWABLE PO SCH (10:42)
--- NOTE | 2018-01-29 11:02 | PDOC PROGRESS REPORT ---
Subjective Progress Note for:: 01/29/18 Subjective:: No new complaints Awaiting OR this pm Reason For Visit: SEPTIC ARTHRITIS, HYPOKALEMIA Physical Exam Vital Signs: Temp Pulse Resp BP Pulse Ox 98.4 F 70 16 168/89 H 94 01/29/18 07:57 01/29/18 07:57 01/29/18 07:57 01/29/18 07:57 01/29/18 07:57 Intake & Output 01/28/18 01/29/18 01/30/18 06:59 06:59 06:59 Intake Total 667 1234 Output Total 300 450 Balance 367 784 Weight 57.1 kg 57.2 kg General appearance: PRESENT: no acute distress, disheveled Head exam: PRESENT: atraumatic, normocephalic Eye exam: PRESENT: conjunctiva pink, EOMI, PERRLA. ABSENT: scleral icterus Ear exam: PRESENT: normal external ear exam Mouth exam: PRESENT: moist, tongue midline Neck exam: ABSENT: carotid bruit, JVD, lymphadenopathy, thyromegaly Respiratory exam: PRESENT: clear to auscultation azam. ABSENT: rales, rhonchi, wheezes Cardiovascular exam: PRESENT: RRR. ABSENT: diastolic murmur, rubs, systolic murmur Pulses: PRESENT: normal dorsalis pedis pul Vascular exam: PRESENT: normal capillary refill GI/Abdominal exam: PRESENT: normal bowel sounds, soft. ABSENT: distended, guarding, mass, organolmegaly, rebound, tenderness Rectal exam: PRESENT: deferred Extremities exam: PRESENT: other - L knee swelling. ABSENT: calf tenderness, clubbing, pedal edema Neurological exam: PRESENT: alert, awake, oriented to person, oriented to place , oriented to situation, CN II-XII grossly intact. ABSENT: motor sensory deficit Psychiatric exam: PRESENT: normal mood. ABSENT: homicidal ideation, suicidal ideation Skin exam: PRESENT: dry, intact, warm. ABSENT: cyanosis, rash Results Laboratory Results: 01/28/18 04:07 01/28/18 04:07 01/23/18 04:10 Creatine Kinase 27 L Impressions: Knee X-Ray 01/22/18 17:28 IMPRESSION: Similar to prior. Status post open reduction internal fixation of patellar fracture with soft tissue swelling and joint effusion. Guidance Fluoroscopy 01/28/18 00:00 IMPRESSION: SUCCESSFUL PLACEMENT OF A 5 FR DUAL LUMEN 30 CM PICC IN THE RIGHT BASILIC VEIN. Interventional Vascular Procedure 01/28/18 00:00 IMPRESSION: SUCCESSFUL PLACEMENT OF A 5 FR DUAL LUMEN 30 CM PICC IN THE RIGHT BASILIC VEIN. PICC Line Insertion 01/28/18 00:00 IMPRESSION: SUCCESSFUL PLACEMENT OF A 5 FR DUAL LUMEN 30 CM PICC IN THE RIGHT BASILIC VEIN. Assessment & Plan - Time Time Spent with patient: 15-24 minutes Medications reviewed and adjusted accordingly: Yes Anticipated discharge: Acute Rehab Within: within 48 hours - Inpatient Certification Based on my medical assessment, after consideration of the patient's comorbidities, presenting symptoms, or acuity I expect that the services needed warrant INPATIENT care.: Yes Medical Necessity: Need for Surgery - Plan Summary Plan Summary: 1. Left patella fracture For OR today 2. Left knee cellulitis around the left patella -On Cefazolin 3. Diarrhea which is chronic - Cont Questran and Imodium 4. Hypernatremia- resolved 5. Hypokalemia- corrected 6. PICC line in RUE
[2018-01-29] MEDS: RINGERS SOLUTION,LACTATED 1,000 ML IV PRN (11:17)
[2018-01-29] MEDS: LOPERAMIDE HCL 2 MG CAPSULE PO SCH (12:03)
[2018-01-29] MEDS: LORAZEPAM 0.5 MG TABLET PO SCH ×3 (12:03→17:23)
[2018-01-29] MEDS: CETIRIZINE 10 MG TABLET PO SCH (12:04)
[2018-01-29] MEDS: CHOLESTYRAMINE/ASPARTAME 4 GM PACKET PO SCH ×2 (12:04→17:23)
[2018-01-29] MEDS: NORMAL SALINE 10 ML SDV (SCHEDULED) IV SCH ×2 (12:05→21:33)
[2018-01-29] MEDS: ISOSORBIDE MONONITRATE 30 MG TAB.ER.24H PO SCH (12:12)
[2018-01-29] MEDS: AMLODIPINE BESYLATE 5 MG TABLET PO SCH (12:12)
[2018-01-29] MEDS: DIVALPROEX SODIUM 250 MG TAB.SR.24H PO SCH ×2 (12:12→21:32)
[2018-01-29] MEDS: METOPROLOL TARTRATE 50 MG TABLET PO SCH ×2 (12:13→21:32)
[2018-01-29] MEDS: RANOLAZINE 500 MG TAB.SR.12H PO SCH ×2 (12:13→17:23)
[2018-01-29] MEDS: LISINOPRIL 10 MG TABLET PO SCH ×2 (12:18→17:23)
[2018-01-29] MEDS ORDERED: MIDAZOLAM 2 MG/2 ML INJ ONE (16:25)
[2018-01-29] MEDS ORDERED: HYDROMORPHONE HCL INJ/PF 2 MG/ML AMPULE ONE (16:25)
[2018-01-29] MEDS ORDERED: ACETAMINOPHEN 1,000 MG/100 ML RTUPB IV ONE (16:25)
[2018-01-29] MEDS ORDERED: PROPOFOL INJ 200 MG/20 ML VIAL IV ONE (16:25)
[2018-01-29] MEDS ORDERED: FENTANYL CITRATE INJ/PF 100 MCG/2 ML AMPUL ONE (16:25)
[2018-01-29] MEDS ORDERED: MORPHINE SULFATE 10 MG/ML INJ IV PRN (17:54)
[2018-01-29] MEDS ORDERED: PROMETHAZINE HCL INJ 25 MG/1 ML VIAL IV PRN ×2 (17:54)
[2018-01-29] MEDS ORDERED: MEPERIDINE HCL/PF INJ 25 MG/1 ML DISP.SYRIN IV PRN (17:54)
[2018-01-29] MEDS ORDERED: DIPHENHYDRAMINE HCL 50 MG/ML VIAL IV PRN (17:54)
[2018-01-29] MEDS ORDERED: FENTANYL CITRATE INJ/PF 100 MCG/2 ML AMPUL IV PRN ×3 (17:54)
--- NOTE | 2018-01-29 18:53 | RADIOLOGY REPORT (SQ) ---
EXAM DESCRIPTION: NO CHG FLUORO; KNEE LEFT 2 VIEWS COMPLETED DATE/TIME: 01/29/2018 6:29 pm REASON FOR STUDY: ORIF REVISION LT KNEE; RADIOLUCENT MATERIAL COMPARISON: None. FLUOROSCOPY TIME: 0.1 minutes 3 Images saved to PACS LIMITATIONS: None. PROCEDURE: Revision of ORIF of the left patella. FINDINGS: Images obtained with fluoro show that the wires to been removed from the patella. IMPRESSION: Revision of ORIF of the left patella. Refer to operative note for further information. COMMENT: PQRS 6045F: Fluoroscopy time of the procedure is documented in the report. TECHNICAL DOCUMENTATION: JOB ID: [id number] [email or web address]- All Rights Reserved Reading location - IP/workstation name: [email or web address]
--- NOTE | 2018-01-29 18:53 | RADIOLOGY REPORT (SQ) ---
EXAM DESCRIPTION: NO CHG FLUORO; KNEE LEFT 2 VIEWS COMPLETED DATE/TIME: 01/29/2018 6:29 pm REASON FOR STUDY: ORIF REVISION LT KNEE; RADIOLUCENT MATERIAL COMPARISON: None. FLUOROSCOPY TIME: 0.1 minutes 3 Images saved to PACS LIMITATIONS: None. PROCEDURE: Revision of ORIF of the left patella. FINDINGS: Images obtained with fluoro show that the wires to been removed from the patella. IMPRESSION: Revision of ORIF of the left patella. Refer to operative note for further information. COMMENT: PQRS 6045F: Fluoroscopy time of the procedure is documented in the report. TECHNICAL DOCUMENTATION: JOB ID: [id number] [employer]- All Rights Reserved Reading location - IP/workstation name: [email or web address]
[2018-01-29] MEDS ORDERED: EPHEDRINE SULFATE INJ 50 MG/1 ML AMPULE ONE (18:57)
--- NOTE | 2018-01-29 19:22 | Operative Report ---
Operative Report DATE OF SURGERY: 01/29/18 PREOPERATIVE DIAGNOSIS: Resolved superficial wound infection. Failed ORIF of left patella fracture #2 POSTOPERATIVE DIAGNOSIS: Same OPERATION: I&D , removal of hardware, revision ORIF of left patella fracture SURGEON: SHAY GAFFNEY ANESTHESIA: GA TISSUE REMOVED OR ALTERED: Pins and sutures from previous surgery. COMPLICATIONS: None ESTIMATED BLOOD LOSS: Less than 20 mL INTRAOPERATIVE FINDINGS: As above PROCEDURE: Patient was brought to the operating room and the patient was successfully given general anesthetic. Bump was placed on her buttocks and a tourniquet was applied to left thigh. The left lower extremity was prepped and draped in normal sterile surgical fashion. Timeout was done identifying the left knee as the correct site. Esmarch was used as a correct extremity and the tourniquet was inflated at 300 mmHg. Previous gautam were removed. 10 blade was used to use the same incision to open up the knee. There was about a centimeter of a wound dehiscence that was then successfully removed with the cultures were then taken at the fracture site and into the knee. I was able then to dissect the site to mobilize skin flaps and exposed the failed ORIF. I was able to identify the 2 K wires and cut one end and pull them out the other end. I was able to identify the cerclage fiber tape and FiberWire and cut these and remove these as well. Previous Vicryl stitches were also identified and removed as procedure continued. There was no pus or proteinaceous tissue. Only was able to see serosanguineous fluid. Some sclerosing of the fracture edges. Scar tissue on the retinaculum showing early healing. No callus noted. Curette was used to debride the extensor mechanism and skin flaps on the undersurface. I used the pulsatile lavage and used 6 L of saline solution. At this point placed the leg on a triangle and then previous to previous pin sites to shuttle the back end of the FiberWire and then a Krakw stitch of the quadriceps tendon and then repeated this with a second suture. The needles were removed and then a third tunnel in the middle was dissected and exposed and with a Titus suture passer was able to be passed with the proximal fragment. I was able to then repeat the passing of the sutures through the 2 previous tunnels in the distal fragment and drilled a middle tunnel and used adhesions expected to pass the FiberWire through this third tunnel. The matching strands with then tied any side while a tenaculum was reducing the fragment so satisfied with my fixation with bone tunnels and noted that I placed the knee in the past 30 degrees it would do a slight gapping but overall stayed intact. At this point I use the #1 PDS [id number] was able to approximate the edges of the tissue superiorly. This allowed me to flex the knee up to 60 degrees without gapping. 0 Vicryl was used to approximate the subcutaneous fat and then 3-0 nylon was used to attach the skin edges in a horizontal mattress fashion with interrupted gautam in between. Xeroform 4 x 4 dressing was applied. Stockinette was then applied and then more soft roll was used to do a cylindrical cast. Make sure there is extra padding at the ankle to avoid any irritation of the cylindrical cast. I was able to use a 4 inch fiberglass material and then in extension by my cast successfully. I wait to the cast to harden in place surgical lube to make sure it did not stick to fabric material. Tourniquet was let down at 71 minutes and the patient was awoken and extubated successfully. Patient was transferred to PACU in a stable condition.
[2018-01-30] MEDS: CEFAZOLIN 1 GM/D5W RTU 1 GM/50 ML RTUPB IV SCH ×4 (05:48→23:14)
[2018-01-30] MEDS: LANSOPRAZOLE 30 MG TAB.RAP.DR PO SCH (05:48)
[2018-01-30 07:11] LABS: ABSOLUTE BASOPHILS # (AUTO) 0.1 10^3/uL (0.0-0.2); ABSOLUTE LYMPHOCYTES (AUTO) 1.3 10^3/uL (0.5-4.7); ABSOLUTE MONOCYTES (AUTO) 0.6 10^3/uL (0.1-1.4); ABSOLUTE NEUT (AUTO) 8.6 10^3/uL (1.7-8.2); BASOPHILS % (AUTO) 0.5 % (0-2); HEMATOCRIT 32.1 % (36.0-47.0); HEMOGLOBIN 10.7 g/dL (12.0-15.5); LYMPHOCYTES % (AUTO) 12.1 % (13-45); MEAN CORPUSCULAR HEMOGLOBIN 29.5 pg (27.0-33.4); MEAN CORPUSCULAR HGB CONC 33.3 g/dL (32.0-36.0); MEAN CORPUSCULAR VOLUME 89 fl (80-97); MONOCYTES % (AUTO) 5.8 % (3-13); PLATELET COUNT 440 10^3/uL (150-450); RED BLOOD COUNT 3.62 10^6/uL (3.72-5.28); RED CELL DISTRIBUTION WIDTH 14.4 % (11.5-14.0); SEGMENTED NEUTROPHILS % (AUTO) 81.6 % (42-78); TOTAL CELLS COUNTED % (AUTO) 100 %; WHITE BLOOD COUNT 10.5 10^3/uL (4.0-10.5)
[2018-01-30 07:25] LABS: ANION GAP 9 (5-19); BLOOD UREA NITROGEN 8 mg/dL (7-20); CALCIUM 9.5 mg/dL (8.4-10.2); CARBON DIOXIDE 27 mmol/L (22-30); CHLORIDE 106 mmol/L (98-107); GLUCOSE 111 mg/dL (75-110); POTASSIUM 4.4 mmol/L (3.6-5.0); SODIUM 142.3 mmol/L (137-145)
[2018-01-30] MEDS: METOPROLOL TARTRATE 50 MG TABLET PO SCH ×2 (10:25→22:45)
[2018-01-30] MEDS: CETIRIZINE 10 MG TABLET PO SCH (10:26)
[2018-01-30] MEDS: ISOSORBIDE MONONITRATE 30 MG TAB.ER.24H PO SCH (10:26)
[2018-01-30] MEDS: DIVALPROEX SODIUM 250 MG TAB.SR.24H PO SCH ×2 (10:26→22:45)
[2018-01-30] MEDS: LISINOPRIL 10 MG TABLET PO SCH ×2 (10:26→18:05)
[2018-01-30] MEDS: AMLODIPINE BESYLATE 5 MG TABLET PO SCH (10:26)
[2018-01-30] MEDS: RANOLAZINE 500 MG TAB.SR.12H PO SCH ×2 (10:27→18:06)
[2018-01-30] MEDS: CHOLESTYRAMINE/ASPARTAME 4 GM PACKET PO SCH ×2 (10:27→18:08)
[2018-01-30] MEDS: NORMAL SALINE 10 ML SDV (SCHEDULED) IV SCH ×2 (10:27→22:45)
[2018-01-30] MEDS: ASPIRIN 81 MG TABLET, CHEWABLE PO SCH (10:28)
[2018-01-30] MEDS: LOPERAMIDE HCL 2 MG CAPSULE PO SCH (10:29)
[2018-01-30] MEDS: ACETAMINOPHEN 325 MG TABLET PO PRN (12:28)
[2018-01-30] MEDS: LORAZEPAM 0.5 MG TABLET PO SCH ×2 (13:29→22:45)
--- NOTE | 2018-01-30 14:17 | PDOC PROGRESS REPORT ---
Subjective Progress Note for:: 01/30/18 Subjective:: No new complaints Patient appears to be pretty comfortable this morning. She is glad she had a surgery done. Reason For Visit: SEPTIC ARTHRITIS, HYPOKALEMIA Physical Exam Vital Signs: Temp Pulse Resp BP Pulse Ox 97.8 F 88 17 177/87 H 98 01/30/18 11:33 01/30/18 11:33 01/30/18 11:33 01/30/18 11:33 01/30/18 11:33 Intake & Output 01/29/18 01/30/18 01/31/18 06:59 06:59 06:59 Intake Total 1284 2700 Output Total 450 625 Balance 834 2075 Weight 57.2 kg 57.2 kg General appearance: PRESENT: no acute distress, other - Older than stated age looking Head exam: PRESENT: atraumatic, normocephalic Eye exam: PRESENT: conjunctiva pink, EOMI, PERRLA. ABSENT: scleral icterus Ear exam: PRESENT: normal external ear exam Mouth exam: PRESENT: moist, tongue midline Neck exam: ABSENT: carotid bruit, JVD, lymphadenopathy, thyromegaly Respiratory exam: PRESENT: clear to auscultation azam. ABSENT: rales, rhonchi, wheezes Cardiovascular exam: PRESENT: RRR. ABSENT: diastolic murmur, rubs, systolic murmur Pulses: PRESENT: normal dorsalis pedis pul Vascular exam: PRESENT: normal capillary refill GI/Abdominal exam: PRESENT: normal bowel sounds, soft. ABSENT: distended, guarding, mass, organolmegaly, rebound, tenderness Rectal exam: PRESENT: deferred Extremities exam: PRESENT: other - Right lower extremity cast. ABSENT: calf tenderness, clubbing, pedal edema Neurological exam: PRESENT: alert, awake, oriented to person, oriented to place , oriented to time, oriented to situation, CN II-XII grossly intact. ABSENT: motor sensory deficit Psychiatric exam: PRESENT: appropriate affect, normal mood. ABSENT: homicidal ideation, suicidal ideation Skin exam: PRESENT: dry, intact, warm. ABSENT: cyanosis, rash Results Laboratory Results: 01/30/18 04:40 01/30/18 04:40 01/30/18 01/30/18 04:40 04:40 WBC 10.5 RBC 3.62 L Hgb 10.7 L Hct 32.1 L MCV 89 MCH 29.5 MCHC 33.3 RDW 14.4 H Plt Count 440 Seg Neutrophils % 81.6 H Lymphocytes % 12.1 L Monocytes % 5.8 Eosinophils % 0.0 Basophils % 0.5 Absolute Neutrophils 8.6 H Absolute Lymphocytes 1.3 Absolute Monocytes 0.6 Absolute Eosinophils 0.0 Absolute Basophils 0.1 Sodium 142.3 Potassium 4.4 Chloride 106 Carbon Dioxide 27 Anion Gap 9 BUN 8 Creatinine 0.68 Est GFR ( Amer) > 60 Est GFR (Non-Af Amer) > 60 Glucose 111 H Calcium 9.5 01/23/18 04:10 Creatine Kinase 27 L Impressions: Guidance Fluoroscopy 01/28/18 00:00 IMPRESSION: SUCCESSFUL PLACEMENT OF A 5 FR DUAL LUMEN 30 CM PICC IN THE RIGHT BASILIC VEIN. Interventional Vascular Procedure 01/28/18 00:00 IMPRESSION: SUCCESSFUL PLACEMENT OF A 5 FR DUAL LUMEN 30 CM PICC IN THE RIGHT BASILIC VEIN. PICC Line Insertion 01/28/18 00:00 IMPRESSION: SUCCESSFUL PLACEMENT OF A 5 FR DUAL LUMEN 30 CM PICC IN THE RIGHT BASILIC VEIN. Fluoroscopy 01/29/18 00:00 IMPRESSION: Revision of ORIF of the left patella. Refer to operative note for further information. Knee X-Ray 01/29/18 00:00 IMPRESSION: Revision of ORIF of the left patella. Refer to operative note for further information. Assessment & Plan - Time Time Spent with patient: 15-24 minutes Medications reviewed and adjusted accordingly: Yes Anticipated discharge: Acute Rehab Within: within 72 hours - Inpatient Certification Based on my medical assessment, after consideration of the patient's comorbidities, presenting symptoms, or acuity I expect that the services needed warrant INPATIENT care.: Yes Medical Necessity: Need Close Monitoring Due to Risk of Patient Decompensation, Need for IV Antibiotics - Plan Summary Plan Summary: 1. Left patella fracture Patient had an I&D, removal of hardware revision ORIF of left patella fracture. This is I believe the third time for intervention in this area. 2. Left knee cellulitis around the left patella -Resolving on Cefazolin day # 4. This can be changed to oral antibiotics as needed 3. Diarrhea which is chronic - Cont Questran and Imodium 4. Hypernatremia- resolved 5. Hypokalemia- corrected 6. PICC line in RUE DC planning for disposition
--- NOTE | 2018-01-30 15:35 | PDOC PROGRESS REPORT ---
Subjective Progress Note for:: 01/30/18 Subjective:: Patient pain well controlled. Lying in bed comfortably. No issues overnight Reason For Visit: SEPTIC ARTHRITIS, HYPOKALEMIA Physical Exam Vital Signs: Temp Pulse Resp BP Pulse Ox 36.6 C 88 17 177/87 H 98 01/30/18 11:33 01/30/18 11:33 01/30/18 11:33 01/30/18 11:33 01/30/18 11:33 Intake & Output 01/29/18 01/30/18 01/31/18 06:59 06:59 06:59 Intake Total 1284 2700 Output Total 450 625 Balance 834 2075 Weight 57.2 kg 57.2 kg Adult Front & Back Image: 1 - Cylindrical cast is intact. She able to move her ankle and extend her toes with good sensation light touch and good capillary refills. Results Laboratory Results: 01/30/18 04:40 01/30/18 04:40 01/30/18 01/30/18 04:40 04:40 WBC 10.5 RBC 3.62 L Hgb 10.7 L Hct 32.1 L MCV 89 MCH 29.5 MCHC 33.3 RDW 14.4 H Plt Count 440 Seg Neutrophils % 81.6 H Lymphocytes % 12.1 L Monocytes % 5.8 Eosinophils % 0.0 Basophils % 0.5 Absolute Neutrophils 8.6 H Absolute Lymphocytes 1.3 Absolute Monocytes 0.6 Absolute Eosinophils 0.0 Absolute Basophils 0.1 Sodium 142.3 Potassium 4.4 Chloride 106 Carbon Dioxide 27 Anion Gap 9 BUN 8 Creatinine 0.68 Est GFR ( Amer) > 60 Est GFR (Non-Af Amer) > 60 Glucose 111 H Calcium 9.5 01/23/18 04:10 Creatine Kinase 27 L Impressions: Guidance Fluoroscopy 01/28/18 00:00 IMPRESSION: SUCCESSFUL PLACEMENT OF A 5 FR DUAL LUMEN 30 CM PICC IN THE RIGHT BASILIC VEIN. Interventional Vascular Procedure 01/28/18 00:00 IMPRESSION: SUCCESSFUL PLACEMENT OF A 5 FR DUAL LUMEN 30 CM PICC IN THE RIGHT BASILIC VEIN. PICC Line Insertion 01/28/18 00:00 IMPRESSION: SUCCESSFUL PLACEMENT OF A 5 FR DUAL LUMEN 30 CM PICC IN THE RIGHT BASILIC VEIN. Fluoroscopy 01/29/18 00:00 IMPRESSION: Revision of ORIF of the left patella. Refer to operative note for further information. Knee X-Ray 01/29/18 00:00 IMPRESSION: Revision of ORIF of the left patella. Refer to operative note for further information. Assessment & Plan - Diagnosis (1) Patellar fracture Qualifiers: Encounter type: initial encounter Fracture type: closed Fracture morphology: comminuted Fracture alignment: displaced Laterality: left Qualified Code(s): S82.042A - Displaced comminuted fracture of left patella, initial encounter for closed fracture Is this a current diagnosis for this admission?: Yes - Plan Summary Plan Summary: Patient is a 57-year-old female POD #1 from I&D and revision ORIF of left patella as well as application of a cylindrical cast. Patient to be nonweightbearing for the first few weeks. Keep the cast dry clean and intact. Continue physical therapy Continue pain control Continue DVT prophylaxis Awaiting shelter facility placement
[2018-01-30] MEDS: OXYCODONE-ACETAMINOPHEN 5-325 MG TABLET PO PRN (18:04)
[2018-01-31] MEDS: OXYCODONE-ACETAMINOPHEN 5-325 MG TABLET PO PRN ×2 (00:32→09:52)
[2018-01-31] MEDS: NORMAL SALINE 10 ML SDV (AFTER EACH USE) IV PRN ×2 (00:32→23:27)
[2018-01-31] MEDS: CEFAZOLIN 1 GM/D5W RTU 1 GM/50 ML RTUPB IV SCH ×4 (06:41→23:27)
[2018-01-31] MEDS: LORAZEPAM 0.5 MG TABLET PO SCH ×3 (06:41→22:05)
[2018-01-31] MEDS: LANSOPRAZOLE 30 MG TAB.RAP.DR PO SCH (06:42)
[2018-01-31] MEDS: LISINOPRIL 10 MG TABLET PO SCH ×2 (09:52→18:13)
[2018-01-31] MEDS: CETIRIZINE 10 MG TABLET PO SCH (09:53)
[2018-01-31] MEDS: ASPIRIN 81 MG TABLET, CHEWABLE PO SCH (09:53)
[2018-01-31] MEDS: DIVALPROEX SODIUM 250 MG TAB.SR.24H PO SCH ×2 (09:53→22:05)
[2018-01-31] MEDS: AMLODIPINE BESYLATE 5 MG TABLET PO SCH (09:53)
[2018-01-31] MEDS: RANOLAZINE 500 MG TAB.SR.12H PO SCH ×2 (09:53→18:13)
[2018-01-31] MEDS: METOPROLOL TARTRATE 50 MG TABLET PO SCH ×2 (09:53→22:06)
[2018-01-31] MEDS: LOPERAMIDE HCL 2 MG CAPSULE PO SCH (09:54)
[2018-01-31] MEDS: ISOSORBIDE MONONITRATE 30 MG TAB.ER.24H PO SCH (09:54)
[2018-01-31] MEDS: NORMAL SALINE 10 ML SDV (SCHEDULED) IV SCH ×2 (09:54→22:06)
[2018-01-31] MEDS: CHOLESTYRAMINE/ASPARTAME 4 GM PACKET PO SCH ×3 (09:55→18:06)
--- NOTE | 2018-01-31 18:08 | PDOC PROGRESS REPORT ---
Subjective Progress Note for:: 01/31/18 Subjective:: The patient is resting comfortably. She has no significant complaints. She does complain of itching under her cast. Reason For Visit: SEPTIC ARTHRITIS, HYPOKALEMIA Physical Exam Vital Signs: Temp Pulse Resp BP Pulse Ox 97.7 F 78 21 H 135/75 H 100 01/31/18 11:59 01/31/18 14:00 01/31/18 11:59 01/31/18 11:59 01/31/18 11:59 Intake & Output 01/30/18 01/31/18 02/01/18 06:59 06:59 06:59 Intake Total 2700 1032 50 Output Total 625 500 Balance 2075 532 50 Weight 57.2 kg 55 kg General appearance: PRESENT: no acute distress, cooperative, well-developed Head exam: PRESENT: atraumatic, normocephalic Eye exam: PRESENT: conjunctiva pink. ABSENT: EOMI, scleral icterus Ear exam: PRESENT: normal external ear exam Mouth exam: PRESENT: moist, tongue midline Respiratory exam: PRESENT: clear to auscultation azam, symmetrical, unlabored. ABSENT: rales, rhonchi, wheezes Cardiovascular exam: PRESENT: RRR, +S1, +S2 GI/Abdominal exam: PRESENT: normal bowel sounds, soft. ABSENT: distended, guarding, tenderness Extremities exam: PRESENT: other - Cast on left leg Musculoskeletal exam: PRESENT: normal inspection - Of the right leg and both arms Neurological exam: PRESENT: alert, awake, oriented to person, oriented to place , oriented to situation Psychiatric exam: PRESENT: appropriate affect, normal mood. ABSENT: agitated, anxious Focused psych exam: ABSENT: restlessness Skin exam: PRESENT: other - Excoriations on left arm Results Laboratory Results: 01/30/18 04:40 01/30/18 04:40 01/23/18 04:10 Creatine Kinase 27 L Impressions: Guidance Fluoroscopy 01/28/18 00:00 IMPRESSION: SUCCESSFUL PLACEMENT OF A 5 FR DUAL LUMEN 30 CM PICC IN THE RIGHT BASILIC VEIN. Interventional Vascular Procedure 01/28/18 00:00 IMPRESSION: SUCCESSFUL PLACEMENT OF A 5 FR DUAL LUMEN 30 CM PICC IN THE RIGHT BASILIC VEIN. PICC Line Insertion 01/28/18 00:00 IMPRESSION: SUCCESSFUL PLACEMENT OF A 5 FR DUAL LUMEN 30 CM PICC IN THE RIGHT BASILIC VEIN. Fluoroscopy 01/29/18 00:00 IMPRESSION: Revision of ORIF of the left patella. Refer to operative note for further information. Knee X-Ray 01/29/18 00:00 IMPRESSION: Revision of ORIF of the left patella. Refer to operative note for further information. Assessment & Plan - Diagnosis (1) Patellar fracture Qualifiers: Encounter type: initial encounter Fracture type: closed Fracture morphology: comminuted Fracture alignment: displaced Laterality: left Qualified Code(s): S82.042A - Displaced comminuted fracture of left patella, initial encounter for closed fracture Is this a current diagnosis for this admission?: Yes Plan: Surgery is following the patient. She had a postop infection after surgical repair of the left patella. (2) Cellulitis of knee, left Is this a current diagnosis for this admission?: Yes Plan: Currently on Ancef. Complete as ordered. (3) Hypokalemia Is this a current diagnosis for this admission?: Yes Plan: Resolved. - Time Time Spent with patient: 15-24 minutes Medications reviewed and adjusted accordingly: Yes
--- NOTE | 2018-01-31 18:35 | PDOC PROGRESS REPORT ---
Subjective Progress Note for:: 01/31/18 Subjective:: Patient resting comfortably in bed. No complaints of the cast rubbing. Just complaining of itching and mild soreness. Reason For Visit: SEPTIC ARTHRITIS, HYPOKALEMIA Physical Exam Vital Signs: Temp Pulse Resp BP Pulse Ox 36.5 C 78 21 H 135/75 H 100 01/31/18 11:59 01/31/18 14:00 01/31/18 11:59 01/31/18 11:59 01/31/18 11:59 Intake & Output 01/30/18 01/31/18 02/01/18 06:59 06:59 06:59 Intake Total 2700 1032 83 Output Total 625 500 Balance 2075 532 83 Weight 57.2 kg 55 kg Adult Front & Back Image: 1 - Gases intact. Minimal ankle swelling with intact range of motion and sensation and motor. Results Laboratory Results: 01/30/18 04:40 01/30/18 04:40 01/23/18 04:10 Creatine Kinase 27 L Impressions: Guidance Fluoroscopy 01/28/18 00:00 IMPRESSION: SUCCESSFUL PLACEMENT OF A 5 FR DUAL LUMEN 30 CM PICC IN THE RIGHT BASILIC VEIN. Interventional Vascular Procedure 01/28/18 00:00 IMPRESSION: SUCCESSFUL PLACEMENT OF A 5 FR DUAL LUMEN 30 CM PICC IN THE RIGHT BASILIC VEIN. PICC Line Insertion 01/28/18 00:00 IMPRESSION: SUCCESSFUL PLACEMENT OF A 5 FR DUAL LUMEN 30 CM PICC IN THE RIGHT BASILIC VEIN. Fluoroscopy 01/29/18 00:00 IMPRESSION: Revision of ORIF of the left patella. Refer to operative note for further information. Knee X-Ray 01/29/18 00:00 IMPRESSION: Revision of ORIF of the left patella. Refer to operative note for further information. Assessment & Plan - Diagnosis (1) Patellar fracture Qualifiers: Encounter type: initial encounter Fracture type: closed Fracture morphology: comminuted Fracture alignment: displaced Laterality: left Qualified Code(s): S82.042A - Displaced comminuted fracture of left patella, initial encounter for closed fracture Is this a current diagnosis for this admission?: Yes - Plan Summary Plan Summary: 57-year-old female postop day 2 from revision ORIF of the left patella fracture and application of a cylindrical cast. We will window the cast prior to discharge. In the meantime continue pain control.
[2018-02-01] MEDS: CEFAZOLIN 1 GM/D5W RTU 1 GM/50 ML RTUPB IV SCH ×4 (05:23→23:43)
[2018-02-01] MEDS: LANSOPRAZOLE 30 MG TAB.RAP.DR PO SCH (05:23)
[2018-02-01] MEDS: LORAZEPAM 0.5 MG TABLET PO SCH ×3 (05:23→21:43)
[2018-02-01] MEDS: AMLODIPINE BESYLATE 5 MG TABLET PO SCH (09:15)
[2018-02-01] MEDS: LISINOPRIL 10 MG TABLET PO SCH ×2 (09:15→18:08)
[2018-02-01] MEDS: CETIRIZINE 10 MG TABLET PO SCH (09:15)
[2018-02-01] MEDS: ASPIRIN 81 MG TABLET, CHEWABLE PO SCH (09:15)
[2018-02-01] MEDS: DIVALPROEX SODIUM 250 MG TAB.SR.24H PO SCH ×2 (09:15→21:43)
[2018-02-01] MEDS: RANOLAZINE 500 MG TAB.SR.12H PO SCH ×2 (09:15→18:08)
[2018-02-01] MEDS: ISOSORBIDE MONONITRATE 30 MG TAB.ER.24H PO SCH (09:15)
[2018-02-01] MEDS: METOPROLOL TARTRATE 50 MG TABLET PO SCH ×2 (09:15→21:43)
[2018-02-01] MEDS: NORMAL SALINE 10 ML SDV (SCHEDULED) IV SCH ×2 (09:16→21:43)
[2018-02-01] MEDS: LOPERAMIDE HCL 2 MG CAPSULE PO SCH (09:16)
[2018-02-01] MEDS: OXYCODONE-ACETAMINOPHEN 5-325 MG TABLET PO PRN (09:16)
[2018-02-01] MEDS: CHOLESTYRAMINE/ASPARTAME 4 GM PACKET PO SCH ×2 (09:17→18:04)
--- NOTE | 2018-02-01 09:25 | PDOC PROGRESS REPORT ---
Subjective Progress Note for:: 02/01/18 Subjective:: Patient was sleep sleeping in bed. Participated with therapy and was able to walk significant amount. Reason For Visit: SEPTIC ARTHRITIS, HYPOKALEMIA Physical Exam Vital Signs: Temp Pulse Resp BP Pulse Ox 37.1 C 79 17 131/75 H 96 02/01/18 08:00 02/01/18 08:00 02/01/18 08:00 02/01/18 08:00 02/01/18 08:00 Intake & Output 01/31/18 02/01/18 02/02/18 06:59 06:59 06:59 Intake Total 1032 1162 Output Total 500 600 Balance 532 562 Weight 55 kg 55 kg Adult Front & Back Image: 1 - Cast is intact with no evidence of irritation or digging in. Neurovascular intact distally with negative Homans sign. Results Laboratory Results: 01/30/18 04:40 01/30/18 04:40 01/23/18 04:10 Creatine Kinase 27 L Impressions: Guidance Fluoroscopy 01/28/18 00:00 IMPRESSION: SUCCESSFUL PLACEMENT OF A 5 FR DUAL LUMEN 30 CM PICC IN THE RIGHT BASILIC VEIN. Interventional Vascular Procedure 01/28/18 00:00 IMPRESSION: SUCCESSFUL PLACEMENT OF A 5 FR DUAL LUMEN 30 CM PICC IN THE RIGHT BASILIC VEIN. PICC Line Insertion 01/28/18 00:00 IMPRESSION: SUCCESSFUL PLACEMENT OF A 5 FR DUAL LUMEN 30 CM PICC IN THE RIGHT BASILIC VEIN. Fluoroscopy 01/29/18 00:00 IMPRESSION: Revision of ORIF of the left patella. Refer to operative note for further information. Knee X-Ray 01/29/18 00:00 IMPRESSION: Revision of ORIF of the left patella. Refer to operative note for further information. Assessment & Plan - Diagnosis (1) Patellar fracture Qualifiers: Encounter type: initial encounter Fracture type: closed Fracture morphology: comminuted Fracture alignment: displaced Laterality: left Qualified Code(s): S82.042A - Displaced comminuted fracture of left patella, initial encounter for closed fracture Is this a current diagnosis for this admission?: Yes - Plan Summary Plan Summary: 57-year-old female status post I&D and revision ORIF of the left patella fracture. I will try to window the cast tomorrow but if the patient is discharged before then I am okay to use when doing the cast in the office. Crutches for ambulation. Continue pain control and DVT prophylaxis.
--- NOTE | 2018-02-01 13:56 | PDOC PROGRESS REPORT ---
Subjective Progress Note for:: 02/01/18 Subjective:: 01/31/2018-the patient is resting comfortably. She has no significant complaints. She does complain of itching under her cast. February 01, 2018-the patient just finished lunch. She is resting comfortably. Reason For Visit: SEPTIC ARTHRITIS, HYPOKALEMIA Physical Exam Vital Signs: Temp Pulse Resp BP Pulse Ox 98.2 F 73 16 106/64 96 02/01/18 11:59 02/01/18 11:59 02/01/18 11:59 02/01/18 11:59 02/01/18 11:59 Intake & Output 01/31/18 02/01/18 02/02/18 06:59 06:59 06:59 Intake Total 1032 1212 Output Total 500 600 Balance 532 612 Weight 55 kg 55 kg General appearance: PRESENT: no acute distress, cooperative, well-developed Mouth exam: PRESENT: moist, tongue midline Neck exam: ABSENT: carotid bruit, JVD, lymphadenopathy Respiratory exam: PRESENT: clear to auscultation azam, symmetrical, unlabored. ABSENT: rales, rhonchi, wheezes Cardiovascular exam: PRESENT: RRR, +S1, +S2 GI/Abdominal exam: PRESENT: normal bowel sounds, soft. ABSENT: distended, guarding, tenderness Extremities exam: PRESENT: other - Cast on left leg Neurological exam: PRESENT: alert, awake, oriented to person, oriented to place Psychiatric exam: PRESENT: appropriate affect, normal mood. ABSENT: agitated, anxious Results Laboratory Results: 01/30/18 04:40 01/30/18 04:40 01/23/18 04:10 Creatine Kinase 27 L Impressions: Guidance Fluoroscopy 01/28/18 00:00 IMPRESSION: SUCCESSFUL PLACEMENT OF A 5 FR DUAL LUMEN 30 CM PICC IN THE RIGHT BASILIC VEIN. Interventional Vascular Procedure 01/28/18 00:00 IMPRESSION: SUCCESSFUL PLACEMENT OF A 5 FR DUAL LUMEN 30 CM PICC IN THE RIGHT BASILIC VEIN. PICC Line Insertion 01/28/18 00:00 IMPRESSION: SUCCESSFUL PLACEMENT OF A 5 FR DUAL LUMEN 30 CM PICC IN THE RIGHT BASILIC VEIN. Fluoroscopy 01/29/18 00:00 IMPRESSION: Revision of ORIF of the left patella. Refer to operative note for further information. Knee X-Ray 01/29/18 00:00 IMPRESSION: Revision of ORIF of the left patella. Refer to operative note for further information. Assessment & Plan - Diagnosis (1) Patellar fracture Qualifiers: Encounter type: initial encounter Fracture type: closed Fracture morphology: comminuted Fracture alignment: displaced Laterality: left Qualified Code(s): S82.042A - Displaced comminuted fracture of left patella, initial encounter for closed fracture Is this a current diagnosis for this admission?: Yes Plan: 01/31/2018-surgery is following the patient. She had a postop infection after surgical repair of the left patella. February 01, 2018-it is possible that the patient will be able to be discharged tomorrow. This will depend on orthopedic surgery evaluation. I believe they are going to remove the cast to assess the lesion tomorrow. (2) Cellulitis of knee, left Is this a current diagnosis for this admission?: Yes Plan: 01/31/2018-currently on Ancef. Complete as ordered. February 01, 2018-continue Ancef. I will defer to orthopedic surgery with regard to the length of treatment considering possible joint involvement. (3) Hypokalemia Is this a current diagnosis for this admission?: Yes Plan: Resolved. - Time Time Spent with patient: 15-24 minutes Medications reviewed and adjusted accordingly: Yes
[2018-02-01] MEDS: NORMAL SALINE 10 ML SDV (AFTER EACH USE) IV PRN (23:43)
[2018-02-02] MEDS: OXYCODONE-ACETAMINOPHEN 5-325 MG TABLET PO PRN (01:08)
[2018-02-02] MEDS: LANSOPRAZOLE 30 MG TAB.RAP.DR PO SCH (06:13)
[2018-02-02] MEDS: CEFAZOLIN 1 GM/D5W RTU 1 GM/50 ML RTUPB IV SCH ×3 (06:13→17:35)
[2018-02-02] MEDS: LORAZEPAM 0.5 MG TABLET PO SCH ×3 (06:13→21:34)
[2018-02-02] MEDS: NORMAL SALINE 10 ML SDV (AFTER EACH USE) IV PRN (06:59)
[2018-02-02] MEDS: LOPERAMIDE HCL 2 MG CAPSULE PO SCH (09:12)
[2018-02-02] MEDS: CHOLESTYRAMINE/ASPARTAME 4 GM PACKET PO SCH ×2 (09:13→17:25)
[2018-02-02] MEDS: RANOLAZINE 500 MG TAB.SR.12H PO SCH ×2 (09:19→17:34)
[2018-02-02] MEDS: NORMAL SALINE 10 ML SDV (SCHEDULED) IV SCH ×2 (09:19→22:00)
[2018-02-02] MEDS: ASPIRIN 81 MG TABLET, CHEWABLE PO SCH (09:19)
[2018-02-02] MEDS: DIVALPROEX SODIUM 250 MG TAB.SR.24H PO SCH ×2 (09:19→21:33)
[2018-02-02] MEDS: CETIRIZINE 10 MG TABLET PO SCH (09:19)
[2018-02-02] MEDS: LISINOPRIL 10 MG TABLET PO SCH ×2 (09:20→17:35)
[2018-02-02] MEDS: AMLODIPINE BESYLATE 5 MG TABLET PO SCH (09:20)
[2018-02-02] MEDS: METOPROLOL TARTRATE 50 MG TABLET PO SCH ×2 (09:20→21:34)
[2018-02-02] MEDS: ISOSORBIDE MONONITRATE 30 MG TAB.ER.24H PO SCH (09:20)
--- NOTE | 2018-02-02 17:38 | PDOC PROGRESS REPORT ---
Subjective Progress Note for:: 02/02/18 Subjective:: Patient resting comfortably in bed. Denies any fevers or chills. Participating with therapy. Reason For Visit: SEPTIC ARTHRITIS, HYPOKALEMIA Physical Exam Vital Signs: Temp Pulse Resp BP Pulse Ox 37.0 C 78 16 103/57 L 96 02/02/18 12:24 02/02/18 14:00 02/02/18 12:24 02/02/18 12:24 02/02/18 12:24 Intake & Output 02/01/18 02/02/18 02/03/18 06:59 06:59 06:59 Intake Total 1212 1120 Output Total 600 Balance 612 1120 Weight 55 kg 56 kg Adult Front & Back Image: 1 - Cylindrical cast was windowed and the dressing was moved showing a clean dry intact incision and gautam as well as sutures. There is no drainage like before and seems to be sealing nicely. Central discoloration still unchanged from previous surgeries but no erythema or evidence of wound infection. She continues to be neurovascular intact distally. Results Laboratory Results: 01/30/18 04:40 01/30/18 04:40 01/29/18 17:20 Knee - Left Gram Stain - Final 01/29/18 17:20 Knee - Left Wound Culture - Final NO AEROBIC OR ANAEROBIC ORGANISMS RECOVERED 01/23/18 04:10 Creatine Kinase 27 L Impressions: Guidance Fluoroscopy 01/28/18 00:00 IMPRESSION: SUCCESSFUL PLACEMENT OF A 5 FR DUAL LUMEN 30 CM PICC IN THE RIGHT BASILIC VEIN. Interventional Vascular Procedure 01/28/18 00:00 IMPRESSION: SUCCESSFUL PLACEMENT OF A 5 FR DUAL LUMEN 30 CM PICC IN THE RIGHT BASILIC VEIN. PICC Line Insertion 01/28/18 00:00 IMPRESSION: SUCCESSFUL PLACEMENT OF A 5 FR DUAL LUMEN 30 CM PICC IN THE RIGHT BASILIC VEIN. Fluoroscopy 01/29/18 00:00 IMPRESSION: Revision of ORIF of the left patella. Refer to operative note for further information. Knee X-Ray 01/29/18 00:00 IMPRESSION: Revision of ORIF of the left patella. Refer to operative note for further information. Assessment & Plan - Diagnosis (1) Patellar fracture Qualifiers: Encounter type: initial encounter Fracture type: closed Fracture morphology: comminuted Fracture alignment: displaced Laterality: left Qualified Code(s): S82.042A - Displaced comminuted fracture of left patella, initial encounter for closed fracture Is this a current diagnosis for this admission?: Yes - Plan Summary Plan Summary: 57-year-old female who is 4 days status post I&D and revision ORIF of the left patella. Incision is healing nicely. OpSite dressing was applied. Continue therapy and weight-bear as tolerated within the cast. We will like to see her next week for wound check. Okay to transition to p.o. antibiotics at discharge and to follow-up in 1 week.
--- NOTE | 2018-02-02 21:52 | PDOC PROGRESS REPORT ---
Subjective Progress Note for:: 02/02/18 Subjective:: 01/31/2018-the patient is resting comfortably. She has no significant complaints. She does complain of itching under her cast. February 01, 2018-the patient just finished lunch. She is resting comfortably. 02/02/2018-the patient was just medicated and is sleeping soundly. Discussion with the patient's sitter revealed some agitation earlier today. Reason For Visit: SEPTIC ARTHRITIS, HYPOKALEMIA Physical Exam Vital Signs: Temp Pulse Resp BP Pulse Ox 98.0 F 88 17 131/71 H 96 02/02/18 20:42 02/02/18 20:42 02/02/18 20:42 02/02/18 20:42 02/02/18 20:42 Intake & Output 02/01/18 02/02/18 02/03/18 06:59 06:59 06:59 Intake Total 1212 1120 670 Output Total 600 200 Balance 612 1120 470 Weight 55 kg 56 kg General appearance: PRESENT: no acute distress, well-developed, other - Sleeping Respiratory exam: PRESENT: clear to auscultation azam, symmetrical, unlabored. ABSENT: rales, rhonchi, wheezes Cardiovascular exam: PRESENT: RRR, +S1, +S2 Neurological exam: PRESENT: other - Medicated and sleeping Results Laboratory Results: 01/30/18 04:40 01/30/18 04:40 01/29/18 17:20 Knee - Left Gram Stain - Final 01/29/18 17:20 Knee - Left Wound Culture - Final NO AEROBIC OR ANAEROBIC ORGANISMS RECOVERED 01/23/18 04:10 Creatine Kinase 27 L Impressions: Guidance Fluoroscopy 01/28/18 00:00 IMPRESSION: SUCCESSFUL PLACEMENT OF A 5 FR DUAL LUMEN 30 CM PICC IN THE RIGHT BASILIC VEIN. Interventional Vascular Procedure 01/28/18 00:00 IMPRESSION: SUCCESSFUL PLACEMENT OF A 5 FR DUAL LUMEN 30 CM PICC IN THE RIGHT BASILIC VEIN. PICC Line Insertion 01/28/18 00:00 IMPRESSION: SUCCESSFUL PLACEMENT OF A 5 FR DUAL LUMEN 30 CM PICC IN THE RIGHT BASILIC VEIN. Fluoroscopy 01/29/18 00:00 IMPRESSION: Revision of ORIF of the left patella. Refer to operative note for further information. Knee X-Ray 01/29/18 00:00 IMPRESSION: Revision of ORIF of the left patella. Refer to operative note for further information. Assessment & Plan - Diagnosis (1) Patellar fracture Qualifiers: Encounter type: initial encounter Fracture type: closed Fracture morphology: comminuted Fracture alignment: displaced Laterality: left Qualified Code(s): S82.042A - Displaced comminuted fracture of left patella, initial encounter for closed fracture Is this a current diagnosis for this admission?: Yes Plan: 01/31/2018-surgery is following the patient. She had a postop infection after surgical repair of the left patella. February 01, 2018-it is possible that the patient will be able to be discharged tomorrow. This will depend on orthopedic surgery evaluation. I believe they are going to remove the cast to assess the lesion tomorrow. 02/02/2018-see orthopedic surgery note as well. Possible discharge tomorrow. (2) Cellulitis of knee, left Is this a current diagnosis for this admission?: Yes Plan: 01/31/2018-currently on Ancef. Complete as ordered. February 01, 2018-continue Ancef. I will defer to orthopedic surgery with regard to the length of treatment considering possible joint involvement. 02/02/2018-per orthopedic surgery I will change to oral antibiotics prior to discharge tomorrow. (3) Hypokalemia Is this a current diagnosis for this admission?: Yes Plan: Resolved. - Time Time Spent with patient: Less than 15 minutes Medications reviewed and adjusted accordingly: Yes Within: within 24 hours
[2018-02-03] MEDS: CEFAZOLIN 1 GM/D5W RTU 1 GM/50 ML RTUPB IV SCH ×3 (02:21→12:13)
[2018-02-03] MEDS: LORAZEPAM 0.5 MG TABLET PO SCH ×2 (05:41→17:17)
[2018-02-03] MEDS: LANSOPRAZOLE 30 MG TAB.RAP.DR PO SCH (05:41)
--- NOTE | 2018-02-03 09:58 | PDOC TRANSFER SUMMARY ---
General Admission Date/PCP: 01/22/18 21:02 SHANE SHAH PA-C Admission Date: 01/22/18 Transfer Date: 02/03/18 Accepting Facility: Other (Comments) - [facility] Res[facility] Status: Full Code - Transfer Diagnosis (1) Patellar fracture Is this a current diagnosis for this admission?: Yes Diagnosis Summary: The patient had previous repair of her patella fracture. Postoperatively she had wound dehiscence and infection. Her patella repair was revised by orthopedic surgery on January 30, 2018. The leg was then casted. Please also see orthopedic surgery notes. She is still in a left leg cast. Her Dr. Yadav, the patient can weight-bear as tolerated within the cast. Follow-up with orthopedic surgery next week. Complete oral antibiotics as ordered. (2) Cellulitis of knee, left Is this a current diagnosis for this admission?: Yes Diagnosis Summary: The patient has been on IV antibiotics (Ancef 1 g 4 times daily) since January 27. Per orthopedic surgery we are going to transition to oral antibiotics. I will prescribe Keflex 500 mg 4 times a day for an additional 7 days. (3) Hypokalemia Is this a current diagnosis for this admission?: Yes Diagnosis Summary: Initial potassium level was 2.8. Hypokalemia resolved with potassium supplementation. - Transfer Medications Home Medications: Albuterol Sulfate [Proair HFA Inhalation Aerosol 8.5 gm MDI] 2 puff IH Q6HP PRN 12/24/17 Aspirin [Aspirin 81 mg Chewable Tablet] 81 mg PO DAILY 12/24/17 Clopidogrel Bisulfate [Plavix 75 mg Tablet] 75 mg PO DAILY 12/24/17 Doxepin HCl 100 mg PO QHS 12/24/17 Guanfacine HCl 0.5 mg PO BID 12/24/17 Isosorbide Mononitrate [Imdur 30 mg Tablet.er] 30 mg PO DAILY 12/24/17 Lisinopril [Zestril] 20 mg PO Q12 12/24/17 Lorazepam [Ativan 0.5 mg Tablet] 0.5 mg PO Q8 12/24/17 Metoprolol Tartrate [Lopressor 50 mg Tablet] 50 mg PO Q12 12/24/17 Olanzapine/Fluoxetine HCl [Symbyax 6-25 mg Capsule] 1 cap PO QHS 12/24/17 Pantoprazole Sodium [Protonix] 40 mg PO DAILY 12/24/17 Ranolazine [Ranexa 500 mg Tab.sr] 500 mg PO Q12 12/24/17 Simvastatin [Zocor 20 mg Tablet] 20 mg PO QPM 12/24/17 Divalproex Sodium [Depakote] 250 mg PO Q12 01/23/18 Oxycodone HCl/Acetaminophen [Percocet 5-325 mg Tablet] 1 tab PO Q12HP PRN Transfer Medications: Current Medications Acetaminophen (Tylenol 325 Mg Tablet) 650 mg PO Q4HP PRN PRN Reason: PAIN/FEVER Stop: 02/22/18 11:21 Last Admin: 01/30/18 12:28 Dose: 650 mg Al Hydrox/Mg Hydrox/Simethicone (Maalox Plus Susp 30 Udcup) 30 ml PO Q6HP PRN PRN Reason: HEARTBURN Stop: 02/21/18 20:41 Albuterol/Ipratropium (Duoneb 3 Ml Ampul) 3 ml NEB [id number] PRN PRN Reason: SHORTNESS OF BREATH Stop: 02/21/18 20:41 Amlodipine Besylate (Norvasc 5 Mg Tablet) 5 mg PO DAILY [facility] Stop: 02/28/18 10:59 Last Admin: 02/02/18 09:20 Dose: 5 mg Aspirin (Aspirin 81 Mg Chewable Tablet) 81 mg PO DAILY [facility] Stop: 02/22/18 09:59 Last Admin: 02/02/18 09:19 Dose: 81 mg Calcium Carbonate (Tums Chewable 500 Mg Tab.Chew) 1,000 mg PO Q4HP PRN PRN Reason: HEARTBURN Stop: 02/25/18 14:40 Cetirizine HCl (Zyrtec 10 Mg Tablet) 10 mg PO DAILY [facility] Stop: 02/22/18 09:59 Last Admin: 02/02/18 09:19 Dose: 10 mg Cholestyramine Resin (Questran Light 4 Gm Packet) 4 gm PO BID ST[facility] Stop: 02/27/18 17:59 Last Admin: 02/02/18 17:25 Dose: Not Given Divalproex Sodium (Depakote Er 250 Mg Tablet) 250 mg PO Q12 [facility] Stop: 02/25/18 21:59 Last Admin: 02/02/18 21:33 Dose: 250 mg Heparin Sodium (Porcine) (Heparin Inj 5,000 Units/Ml 1 Ml Syringe) 5,000 unit SUBCUT Q8 [facility] Stop: 02/21/18 21:59 Last Admin: 01/27/18 21:46 Dose: 5,000 unit Heparin Sodium (Porcine) (Heparin Flush 10 Unit/Ml 5 Ml Disp.Syrg) 30 unit IV Q12 [facility] Stop: 02/27/18 21:59 Last Admin: 02/02/18 21:35 Dose: 30 unit Heparin Sodium (Porcine) (Heparin Flush 10 Unit/Ml 5 Ml Disp.Syrg) 30 unit IV .AFTER EACH USE PRN Stop: 02/27/18 11:52 Last Admin: 02/02/18 06:59 Dose: 30 unit Cefazolin Sodium/Dextrose (Ancef Rtu 1 Gm/D5w 50 Ml Premix Bag) 1 gm in 50 mls @ 100 mls/hr IV Q6 [facility] Stop: 02/03/18 16:59 Last Admin: 02/03/18 05:42 Dose: 100 mls/hr Isosorbide Mononitrate (Imdur 30 Mg Tablet.Er) 30 mg PO DAILY [facility] Stop: 02/22/18 11:29 Last Admin: 02/02/18 09:20 Dose: 30 mg Lansoprazole (Prevacid 30 Mg Odt Tablet) 30 mg PO Q6AM [facility] Stop: 02/23/18 05:59 Last Admin: 02/03/18 05:41 Dose: 30 mg Lisinopril (Prinivil 10 Mg Tablet) 20 mg PO BID STACEY Stop: 02/22/18 09:59 Last Admin: 02/02/18 17:35 Dose: 20 mg Loperamide HCl (Imodium 2 Mg Capsule) 2 mg PO Q6HP PRN PRN Reason: DIARRHEA Stop: 02/25/18 16:38 Last Admin: 01/29/18 21:32 Dose: 2 mg Loperamide HCl (Imodium 2 Mg Capsule) 2 mg PO DAILY [facility] Stop: 02/26/18 09:59 Last Admin: 02/02/18 09:12 Dose: Not Given Lorazepam (Ativan 0.5 Mg Tablet) 0.5 mg PO Q8 [facility] Stop: 02/06/18 13:59 Last Admin: 02/03/18 05:41 Dose: 0.5 mg Magnesium Hydroxide (Milk Of Magnesia 30 Ml Udcup) 30 ml PO HSP PRN PRN Reason: FOR CONSTIPATION Stop: 02/21/18 20:41 Metoprolol Tartrate (Lopressor 50 Mg Tablet) 50 mg PO Q12 [facility] Stop: 02/21/18 21:59 Last Admin: 02/02/18 21:34 Dose: 50 mg Oxycodone/Acetaminophen (Percocet 5-325 Mg Tablet) 1 tab PO Q6HP PRN PRN Reason: PAIN Stop: 02/06/18 13:25 Last Admin: 02/02/18 01:08 Dose: 1 tab Patient Own Medication (Olanzapine/Fluoxetine Hcl [Symbyax 6-25 Mg Capsule]) 1 cap PO .QHS [facility] Stop: 02/21/18 21:59 Ranolazine (Ranexa 500 Mg Tab.Sr) 500 mg PO BID [facility] Stop: 02/22/18 17:59 Last Admin: 02/02/18 17:34 Dose: 500 mg Sodium Chloride (Nacl 0.9% Inj/Pf 10 Ml Sdv) 10 ml IV Q12 [facility] Stop: 02/27/18 21:59 Last Admin: 02/02/18 22:00 Dose: 10 ml Sodium Chloride (Nacl 0.9% Inj/Pf 10 Ml Sdv) 10 ml IV .AFTER EACH USE PRN Stop: 02/27/18 11:52 Last Admin: 02/02/18 06:59 Dose: 10 ml - Allergies Allergies/Adverse Reactions: No Known Allergies Allergy (Verified 01/22/18 18:04) - Diet/Activity Discharge Diet: Cardiac Discharge Activity: Activity As Tolerated - Weightbearing on left leg in the cast as tolerated Hospital Course Hospital Course: Upon admission antibiotic therapy was initiated. The patient underwent surgical revision of the left patella fracture. The area was irrigated and underwent primary closure. The patient continued antibiotic therapy for more than 7 days. She was occasionally restless. She has had a sitter specifically to prevent the patient pulling out her PICC line. The knee is healing nicely. Orthopedic surgery reevaluated by removing the cast yesterday. The patient will complete an additional course of oral cephalexin. She will follow-up with orthopedic surgery in 1 week. Orthopedic surgery recommends weightbearing as tolerated on the left leg. The cast will remain in place. During her stay there were slight adjustments in her antihypertensive medications and she has been stable. She did not exhibit any acute coronary symptoms despite her history of myocardial infarction. Physical Exam Vital Signs: Temp Pulse Resp BP Pulse Ox 97.9 F 70 18 127/57 H 96 02/02/18 23:34 02/03/18 07:00 02/02/18 23:34 02/02/18 23:34 02/02/18 23:34 Intake & Output 02/02/18 02/03/18 02/04/18 06:59 06:59 06:59 Intake Total 1120 1070 Output Total 400 Balance 1120 670 Weight 56 kg 57.4 kg General appearance: PRESENT: no acute distress, thin, well-developed Head exam: PRESENT: atraumatic, normocephalic Ear exam: PRESENT: normal external ear exam Mouth exam: PRESENT: moist, tongue midline Respiratory exam: PRESENT: clear to auscultation azam, symmetrical, unlabored. ABSENT: rales, rhonchi, wheezes Cardiovascular exam: PRESENT: RRR, +S1, +S2 GI/Abdominal exam: PRESENT: normal bowel sounds, soft. ABSENT: distended, guarding, tenderness Extremities exam: PRESENT: other - Cast on left leg Neurological exam: PRESENT: awake - But trying to nap. Did not maintain eye contact but was verbally interactive. Psychiatric exam: PRESENT: appropriate affect, normal mood. ABSENT: agitated, anxious Focused psych exam: PRESENT: restlessness Results Laboratory Results: 01/30/18 04:40 01/30/18 04:40 01/29/18 17:20 Knee - Left Gram Stain - Final 01/29/18 17:20 Knee - Left Wound Culture - Final NO AEROBIC OR ANAEROBIC ORGANISMS RECOVERED 01/23/18 04:10 Creatine Kinase 27 L Impressions: Guidance Fluoroscopy 01/28/18 00:00 IMPRESSION: SUCCESSFUL PLACEMENT OF A 5 FR DUAL LUMEN 30 CM PICC IN THE RIGHT BASILIC VEIN. Interventional Vascular Procedure 01/28/18 00:00 IMPRESSION: SUCCESSFUL PLACEMENT OF A 5 FR DUAL LUMEN 30 CM PICC IN THE RIGHT BASILIC VEIN. PICC Line Insertion 01/28/18 00:00 IMPRESSION: SUCCESSFUL PLACEMENT OF A 5 FR DUAL LUMEN 30 CM PICC IN THE RIGHT BASILIC VEIN. Fluoroscopy 01/29/18 00:00 IMPRESSION: Revision of ORIF of the left patella. Refer to operative note for further information. Knee X-Ray 01/29/18 00:00 IMPRESSION: Revision of ORIF of the left patella. Refer to operative note for further information. Plan Discharge Plan: Transfer to [facility] facility for ongoing recovery including completion of oral antibiotic regimen and physical therapy. Follow-up with orthopedic surgery in 1 week. Time Spent: Less than 30 Minutes
[2018-02-03] MEDS: LISINOPRIL 10 MG TABLET PO SCH ×2 (12:12→17:52)
[2018-02-03] MEDS: LOPERAMIDE HCL 2 MG CAPSULE PO SCH (12:12)
[2018-02-03] MEDS: DIVALPROEX SODIUM 250 MG TAB.SR.24H PO SCH (12:12)
[2018-02-03] MEDS: CETIRIZINE 10 MG TABLET PO SCH (12:12)
[2018-02-03] MEDS: ASPIRIN 81 MG TABLET, CHEWABLE PO SCH (12:12)
[2018-02-03] MEDS: METOPROLOL TARTRATE 50 MG TABLET PO SCH (12:12)
[2018-02-03] MEDS: RANOLAZINE 500 MG TAB.SR.12H PO SCH ×2 (12:12→17:52)
[2018-02-03] MEDS: ISOSORBIDE MONONITRATE 30 MG TAB.ER.24H PO SCH (12:13)
[2018-02-03] MEDS: AMLODIPINE BESYLATE 5 MG TABLET PO SCH (12:13)
[2018-02-03] MEDS: NORMAL SALINE 10 ML SDV (SCHEDULED) IV SCH (12:13)
[2018-02-03] MEDS: CHOLESTYRAMINE/ASPARTAME 4 GM PACKET PO SCH ×2 (12:14→17:52)
[2018-02-03 13:21] VITALS: BP 143/80
== END 2018-02-03 18:20 | DRG 857 ==
LOC: ER 17:07 → EH 21:02 → 4N 22:10
PROVIDERS: ADMIT Internal Medicine; ATTEND Internal Medicine
PROC: 3E0F73Z Introduction of Anti-inflammatory into Respiratory Tract, Via Natural or Artificial Opening (ICD-10-PCS; 2018-01-23)
PROC: 02HV33Z Insertion of Infusion Device into Superior Vena Cava, Percutaneous Approach (ICD-10-PCS; 2018-01-28)
PROC: B518ZZA Fluoroscopy of Superior Vena Cava, Guidance (ICD-10-PCS; 2018-01-28)
PROC: B548ZZA Ultrasonography of Superior Vena Cava, Guidance (ICD-10-PCS; 2018-01-28)
PROC: 0QW Lower Bones, Revision (ICD-10-PCS; principal; 2018-01-29 14:00)
DX: T81.41XA Infection following a procedure, superficial incisional surgical site, initial encounter (principal); M00.9 Pyogenic arthritis, unspecified; L03.116 Cellulitis of left lower limb; E87.1 Hypo-osmolality and hyponatremia; T81.31XA Disruption of external operation (surgical) wound, not elsewhere classified, initial encounter; E87.6 Hypokalemia; I10 Essential (primary) hypertension; I25.10 Atherosclerotic heart disease of native coronary artery without angina pectoris; F32.9 Major depressive disorder, single episode, unspecified; F41.9 Anxiety disorder, unspecified; E78.00 Pure hypercholesterolemia, unspecified; J43.9 Emphysema, unspecified; K21.9 Gastro-esophageal reflux disease without esophagitis; F41.1 Generalized anxiety disorder; K52.9 Noninfective gastroenteritis and colitis, unspecified; M19.90 Unspecified osteoarthritis, unspecified site; F20.9 Schizophrenia, unspecified; I25.2 Old myocardial infarction; Z79.82 Long term (current) use of aspirin; Z79.899 Other long term (current) drug therapy; Z90.710 Acquired absence of both cervix and uterus; Z82.49 Family history of ischemic heart disease and other diseases of the circulatory system
CPT/HCPCS: 01392; 36415; 36569; 76937; 77001; 80048; 80053; 82550; 83605; 83735; 85025; 85652; 86140; 87040; 87070; 87075; 87205; 87493; 96365; 96375; 99285; G8978-GP; G8979-GP; G8987-GO; G8988-GO; J0131; J0295; J0330; J0690; J1170; J1642; J1644; J2250; J2405; J2543; J2704; J3010; J3370; J3480; J3490; J7120; L1830

== ENCOUNTER → 2018-05-28 | Outpatient (CLI) | payer MEDICARE, MEDICAID ==
[2018-05-28 10:39] LABS: ALANINE AMINOTRANSFERASE 21 U/L (9-52); ALBUMIN 3.8 g/dL (3.5-5.0); ALKALINE PHOSPHATASE 137 U/L (38-126); ASPARTATE AMINO TRANSFERASE 19 U/L (14-36); BILIRUBIN,DIRECT 0.2 mg/dL (0.0-0.4); BILIRUBIN,TOTAL 0.3 mg/dL (0.2-1.3); CHOLESTEROL 175.24 mg/dL (0-200); TRIGLYCERIDES 221 mg/dL (<150)
[2018-05-28 10:50] LABS: DIRECT LDL 100 mg/dL (<100)
[2018-05-28 10:52] LABS: VLDL CHOLESTEROL 44.2 mg/dL (10-31)
== END ==
LOC: OD 09:08
PROVIDERS: ATTEND Specialist
DX: I25.10 Atherosclerotic heart disease of native coronary artery without angina pectoris (principal); I10 Essential (primary) hypertension; R06.02 Shortness of breath; E78.49 Other hyperlipidemia; I25.2 Old myocardial infarction; F17.210 Nicotine dependence, cigarettes, uncomplicated; I21.4 Non-ST elevation (NSTEMI) myocardial infarction; F31.11 Bipolar disorder, current episode manic without psychotic features, mild; Z79.899 Other long term (current) drug therapy
CPT/HCPCS: 36415; 80061; 80076

== ENCOUNTER 2018-07-30 12:52 | Emergency (ER) | payer MEDICARE, MEDICAID ==
--- NOTE | 2018-07-30 13:40 | ER Document Report ---
ED Medical Screen (RME) - General Chief Complaint: Trouble Walking Stated Complaint: DIZZINESS Time Seen by Provider: 07/30/18 13:38 Primary Care Provider: MARILY BURK MD [Primary Care Provider] - Follow up as needed TRAVEL OUTSIDE OF THE [place] IN LAST 30 DAYS: No - HPI Notes: 07/30/18 13:40 She is a 57-year-old female with a history of schizophrenia, depression, hypert ension, hypercholesterolemia, COPD, coronary artery disease (the on Plavix) who presents complaining of having dizziness over the past 3 days and occasional falling with the last one this morning when she fell out of bed. Patient states that she did not hit her head or lose consciousness. Patient states that she did feel some chest discomfort initially, but that has since resolved. Patient does report some neck pain, low back pain, and right lower "side" pain. She has been eating and drinking without difficulty. She is urinating normally and having normal bowel movements. Denies drug allergies. Denies ASHLEY, fever, URI, CP, SOB, Abd pain, n/v/d, dysuria, saddle anesthesia, muscle paralysis, urinary retention, loss of control bowel/bladder, or rash. I have treated and performed a rapid initial assessment of this patient. A comprehensive ED assessment and evaluation of the patient, analysis of test results and completion of medical decision making process will be conducted by additional ED providers. PHYSICAL EXAMINATION: GENERAL: Well-appearing, well-nourished and in no acute distress. A&Ox3. Answers questions appropriately. HEAD: Atraumatic, normocephalic. Non-tender. No xie sign EYES: Pupils equal round and reactive to light, extraocular movements intact, sclera anicteric, conjunctiva are normal. No raccoon eyes/entrapment ENT: EAC clear b/l. TM's intact b/l without erythema, fluid, or perforation. Nares patent and without discharge. oropharynx clear without exudates. No tonsilar hypertrophy or erythema. Moist mucous membranes. No sinus tenderness. No hemotympanum/CSF discharge. NECK: Normal range of motion, supple without lymphadenopathy. No rigidity. + mild midline and paraspinal tenderness. Chest: No flail chest. equal rise/fall. Non-tender LUNGS: Breath sounds clear to auscultation bilaterally and equal. No wheezes rales or rhonchi. HEART: Regular rate and rhythm without murmurs, rubs, gallops. ABDOMEN: Soft, nontender, nondistended abdomen. No guarding, no rebound. Normal bowel sounds present. No CVA tenderness bilaterally. Musculoskeletal: Ext's b/l: FROM to passive/active. Strength 5+/5. No deficits noted. No bony tenderness of extremities. Back: FROM to passive/active. Strength 5+/5. No stepoffs or deformities. No other bony tenderness or ecchymosis. + mild tenderness midline L-spine. Extremities: No cyanosis, clubbing, or edema b/l. Peripheral pulses 2+. Capillary refill less than 2 seconds. NEUROLOGICAL: NIH 0. GCS 15. Cranial nerves grossly intact. Normal speech. PSYCH: Normal mood, normal affect. SKIN: Warm, Dry, normal turgor, no rashes or lesions noted. - Related Data Allergies/Adverse Reactions: No Known Allergies Allergy (Verified 07/30/18 13:09) Past Medical History - Social History Frequency of alcohol use: None Drug Abuse: None - Past Medical History Cardiac Medical History: Reports: Hx Heart Attack - "about 2 years ago", Hx Hypercholesterolemia, Hx Hypertension Denies: Hx Coronary Artery Disease Pulmonary Medical History: 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 Denies: Hx Asthma, Hx Bronchitis, Hx Pneumonia Comment Only: Hx Tuberculosis - unknown Neurological Medical History: Denies: Hx Cerebrovascular Accident, Hx Seizures Renal/ Medical History: Denies: Hx Peritoneal Dialysis GI Medical History: Reports: Hx Gastroesophageal Reflux Disease Musculoskeltal Medical History: Denies Hx Arthritis Psychiatric Medical History: Reports: Hx Depression, Hx Schizophrenia Past Surgical History: Reports: Hx Hysterectomy, Hx Orthopedic Surgery - left knee - Immunizations Hx Diphtheria, Pertussis, Tetanus Vaccination: No History of Influenza Vaccine for 12/2016 - 05/2017 Season: Yes Influenza Administration Date for 12/2016 - 05/2017 Season: 01/01/18 Physical Exam - Vital signs Vitals: Temp Pulse Resp BP Pulse Ox 98.2 F 68 16 119/79 99 07/30/18 13:16 07/30/18 13:16 07/30/18 13:16 07/30/18 13:16 07/30/18 13:16 Course - Vital Signs Vital signs: Temp Pulse Resp BP Pulse Ox 98.2 F 68 16 119/79 99 07/30/18 13:16 07/30/18 13:16 07/30/18 13:16 07/30/18 13:16 07/30/18 13:16 Doctor's Discharge - Discharge Referrals: MARILY BURK MD [Primary Care Provider] - Follow up as needed
[2018-07-30 14:21] LABS: ABSOLUTE BASOPHILS # (AUTO) 0.1 10^3/uL (0.0-0.2); ABSOLUTE LYMPHOCYTES (AUTO) 2.6 10^3/uL (0.5-4.7); ABSOLUTE MONOCYTES (AUTO) 0.9 10^3/uL (0.1-1.4); BASOPHILS % (AUTO) 0.6 % (0-2); HEMATOCRIT 38.4 % (36.0-47.0); HEMOGLOBIN 12.7 g/dL (12.0-15.5); INTERNATIONAL RATION (INR) 0.98; LYMPHOCYTES % (AUTO) 24.5 % (13-45); MEAN CORPUSCULAR HEMOGLOBIN 29.5 pg (27.0-33.4); MEAN CORPUSCULAR VOLUME 89 fl (80-97); PLATELET COUNT 305 10^3/uL (150-450); PROTHROMBIN TIME 13.5 SEC (11.4-15.4); RED BLOOD COUNT 4.29 10^6/uL (3.72-5.28); RED CELL DISTRIBUTION WIDTH 15.5 % (11.5-14.0); SEGMENTED NEUTROPHILS % (AUTO) 56.9 % (42-78); TOTAL CELLS COUNTED % (AUTO) 100 %; WHITE BLOOD COUNT 10.6 10^3/uL (4.0-10.5)
[2018-07-30 14:22] LABS: PARTIAL THROMBOPLASTIN TIME 31.6 SEC (23.5-35.8)
[2018-07-30 14:39] LABS: ALANINE AMINOTRANSFERASE 13 U/L (9-52); ALBUMIN 3.7 g/dL (3.5-5.0); ALKALINE PHOSPHATASE 104 U/L (38-126); ANION GAP 11 (5-19); ASPARTATE AMINO TRANSFERASE 16 U/L (14-36); BILIRUBIN,DIRECT 0.3 mg/dL (0.0-0.4); BILIRUBIN,TOTAL 0.3 mg/dL (0.2-1.3); BLOOD UREA NITROGEN 13 mg/dL (7-20); CALCIUM 9.7 mg/dL (8.4-10.2); CARBON DIOXIDE 21 mmol/L (22-30); CHLORIDE 111 mmol/L (98-107); GLUCOSE 92 mg/dL (75-110); POTASSIUM 4.2 mmol/L (3.6-5.0); SODIUM 142.6 mmol/L (137-145); TOTAL PROTEIN 6.7 g/dL (6.3-8.2)
--- NOTE | 2018-07-30 14:47 | RADIOLOGY REPORT (SQ) ---
EXAM DESCRIPTION: CT CERVICAL SPINE WITHOUT COMPLETED DATE/TIME: 07/30/2018 2:37 pm REASON FOR STUDY: dizziness/fall, pain COMPARISON: None. TECHNIQUE: Axial images acquired through the cervical spine without intravenous contrast. Images re viewed with lung, soft tissue and bone windows. Reconstructed coronal and sagittal MPR images review ed. Images stored on PACS. All CT scanners at this facility use dose modulation, iterative reconstruction, and/or weight based d osing when appropriate to reduce radiation dose to as low as reasonably achievable (ALARA). [facility]: Dose Right [facility]: CareDose [facility]: Dose Right [facility]: Teradose 4D [facility]: [employer] RADIATION DOSE: CT Rad equipment meets quality standard of care and radiation dose reduction techniq ues were employed. CTDIvol: 9.1 mGy. DLP: 174 mGy-cm. mGy. LIMITATIONS: None. FINDINGS: ALIGNMENT: Anatomic. MINERALIZATION: Normal. VERTEBRAL BODIES: No fractures or dislocation. DISCS: No significant disc disease. FACETS, LATERAL MASSES, POSTERIOR ELEMENTS: No fractures. No dislocation. No acute findings. HARDWARE: None in the spine. VISUALIZED RIBS: No fractures. LUNG APICES AND SOFT TISSUES: Emphysema. OTHER: No other significant finding. IMPRESSION: No fracture or static subluxation of the cervical spine. TECHNICAL DOCUMENTATION: JOB ID: [id number] Quality ID # [id number]: Final reports with documentation of one or more dose reduction techniques (e.g., Au tomated exposure control, adjustment of the mA and/or kV according to patient size, use of iterative reconstruction technique) 2010 [employer]- All Rights Reserved Reading location - IP/workstation name: [email or web address]
--- NOTE | 2018-07-30 14:48 | RADIOLOGY REPORT (SQ) ---
EXAM DESCRIPTION: CT HEAD WITHOUT COMPLETED DATE/TIME: 07/30/2018 2:37 pm REASON FOR STUDY: dizziness/fall COMPARISON: CT brain 02/14/2016, 02/06/2016, 04/14/2013 MRI brain 02/29/2016 TECHNIQUE: Axial images acquired through the brain without intravenous contrast. Images reviewed wi th bone, brain and subdural windows. Additional sagittal and coronal reconstructions were generated. Images stored on PACS. All CT scanners at this facility use dose modulation, iterative reconstruction, and/or weight based d osing when appropriate to reduce radiation dose to as low as reasonably achievable (ALARA). [facility]: Dose Right [facility]: CareDose [facility]: Dose Right [facility]: Teradose 4D [facility]: [employer] RADIATION DOSE: CT Rad equipment meets quality standard of care and radiation dose reduction techniq ues were employed. CTDIvol: 53.2 mGy. DLP: 991 mGy-cm. mGy. LIMITATIONS: None. FINDINGS: VENTRICLES: Normal size and contour. CEREBRUM: No masses. No hemorrhage. No midline shift. No evidence for acute infarction. Normal gra y/white matter differentiation. No areas of low density in the white matter. CEREBELLUM: No masses. No hemorrhage. No alteration of density. No evidence for acute infarction. EXTRAAXIAL SPACES: No fluid collections. No masses. ORBITS AND GLOBE: No intra- or extraconal masses. Normal contour of globe without masses. CALVARIUM: No fracture. PARANASAL SINUSES: No fluid or mucosal thickening. SOFT TISSUES: No mass or hematoma. OTHER: Minimal fluid in the left mastoid and middle ear cavity likely pre-existing inflammatory cheng e. No left-sided skullbase fracture is suspected. IMPRESSION: No acute posttraumatic changes EVIDENCE OF ACUTE STROKE: NO. COMMENT: Quality ID # 436: Final reports with documentation of one or more dose reduction techniques (e.g., Automated exposure control, adjustment of the mA and/or kV according to patient size, use of iterative reconstruction technique) TECHNICAL DOCUMENTATION: JOB ID: [id number] [employer]- All Rights Reserved Reading location - IP/workstation name: [email or web address]
--- NOTE | 2018-07-30 14:51 | RADIOLOGY REPORT (SQ) ---
EXAM DESCRIPTION: L SPINE WHOLE COMPLETED DATE/TIME: 07/30/2018 2:31 pm REASON FOR STUDY: pain s/p fall COMPARISON: CT abdomen pelvis 06/01/2015 NUMBER OF VIEWS: Five views including obliques. TECHNIQUE: AP, lateral, oblique, and sacral radiographic images acquired of the lumbar spine. LIMITATIONS: None. FINDINGS: MINERALIZATION: Osteopenic SEGMENTATION: Normal. No transitional anatomy. ALIGNMENT: Normal. VERTEBRAE: Chronic appearing L1 50% compression deformity with upper endplate vertebral body sclerosi s and osteophyte formation. Chronic appearing central upper endplate depression at L5 with about 25% anterior L5 loss of height unchanged from 06/01/2015 CT abdomen pelvis. No acute lumbar compression deformities are identified DISCS: Disc space loss of height at T12-L1, L4-5. POSTERIOR ELEMENTS: Pedicles and facets are intact. No pars defect or posterior arch defects. HARDWARE: None in the spine. PARASPINAL SOFT TISSUES: Infrarenal abdominal aorta is ectatic, 3 cm in greatest AP diameter. PELVIS: Not included in the field of view OTHER: No other significant finding. IMPRESSION: Chronic appearing L1 and L5 compression deformities Infrarenal abdominal aorta measures 3 cm in diameter TECHNICAL DOCUMENTATION: JOB ID: [id number] [employer]- All Rights Reserved Reading location - IP/workstation name: [email or web address]
--- NOTE | 2018-07-30 14:54 | RADIOLOGY REPORT (SQ) ---
EXAM DESCRIPTION: PELVIS AP COMPLETED DATE/TIME: 07/30/2018 2:31 pm REASON FOR STUDY: pain s/p fall rt COMPARISON: None. NUMBER OF VIEWS: One view TECHNIQUE: AP Pelvis LIMITATIONS: None. FINDINGS: MINERALIZATION: Normal. HIPS: No acute fracture or dislocation. No worrisome bone lesions. PELVIS AND SACRUM: No acute fracture or dislocation. No worrisome bone lesions. PUBIS AND ISCHIUM: No acute fracture. LOWER LUMBAR SPINE: No significant findings as visualized. SOFT TISSUES: No findings. OTHER: No other significant finding. IMPRESSION: NEGATIVE STUDY OF THE PELVIS. COMMENT: Pelvic fractures are often occult on plain radiographs. If strong clinical suspicion for f racture, recommend CT or MR. TECHNICAL DOCUMENTATION: JOB ID: [id number] [employer]- All Rights Reserved Reading location - IP/workstation name: [email or web address]
--- NOTE | 2018-07-30 14:54 | RADIOLOGY REPORT (SQ) ---
EXAM DESCRIPTION: CHEST SINGLE VIEW COMPLETED DATE/TIME: 07/30/2018 2:31 pm REASON FOR STUDY: dizziness COMPARISON: 01/14/2018 EXAM PARAMETERS: NUMBER OF VIEWS: One view. TECHNIQUE: Single frontal radiographic view of the chest acquired. RADIATION DOSE: NA LIMITATIONS: None. FINDINGS: LUNGS AND PLEURA: No opacities, masses or pneumothorax. No pleural effusion. MEDIASTINUM AND HILAR STRUCTURES: No masses. Contour normal. HEART AND VASCULAR STRUCTURES: Heart normal in size. Normal vasculature. BONES: No acute findings. HARDWARE: None in the chest. OTHER: No other significant finding. IMPRESSION: No acute abnormality of the lungs in AP projection. TECHNICAL DOCUMENTATION: JOB ID: [id number] [employer]- All Rights Reserved Reading location - IP/workstation name: [email or web address]
--- NOTE | 2018-07-30 15:51 | ER Document Report ---
ED General - General Chief Complaint: Trouble Walking Stated Complaint: DIZZINESS Time Seen by Provider: 07/30/18 13:38 Primary Care Provider: MARILY BURK MD [Primary Care Provider] - Follow up as needed Notes: Patient is a 57-year-old female with schizophrenia, hypertension, hyperlipidemia that presents to the emergency department for chief complaint of fall and dizziness. Patient reports that this morning she had a fall getting out of bed, she is been more unsteady with walking and had some dizziness as well. She denies having any headaches. She is only complaining of some pain in her left knee where she had prior surgery, and states that it is controlled now only rates the pain as a 1 out of 10 only when she moves it. She has walked already in the emergency department without much difficulty. She denies having any dizziness at this time, she states occasionally she gets lightheaded but has not passed out. Denies having any chest pain, shortness of breath, nausea, vomiting or diarrhea. She states that she is hungry and wants to eat. Past Medical History: Schizophrenia, hypertension, hyperlipidemia, depression Past Surgical History: Knee surgery Social History: Patient is a long-term resident at the [facility], denies current tobacco or alcohol or drug use Family History: Reviewed and noncontributory for presenting illness Allergies: Reviewed, see documented allergy list. REVIEW OF SYSTEMS: Other than noted above, the 12 point review of systems was reviewed with the patient and were negative, all pertinent findings are included in the HPI. PHYSICAL EXAMINATION: Vital signs reviewed, nursing noted reviewed. GENERAL: Patient appears older than stated age HEAD: Atraumatic, normocephalic. EYES: extraocular movements intact, PERRLA, horizontal nystagmus noted in both eyes, strabismus noted in the right eye, sclera anicteric, conjunctiva are normal. ENT: nares patent, oropharynx clear without exudates. Moist mucous membranes. NECK: Normal range of motion, supple without lymphadenopathy LUNGS: Breath sounds clear to auscultation bilaterally and equal. No wheezes rales or rhonchi. HEART: Regular rate and rhythm without murmurs Back: No midline tenderness to palpation of the thoracic or lumbar spine, good range of motion. ABDOMEN: Soft, nontender, normoactive bowel sounds. No rebound, guarding, or rigidity. No masses appreciated. EXTREMITIES: Mild tenderness to palpation to the left knee, but no joint effusion was appreciated, she good range of motion, well-healed incisional scar noted good range of motion, no pitting or edema. No limb ataxia on exam. NEUROLOGICAL: No focal neurological deficits. Moves all extremities spontaneousl y Motor and sensory grossly intact on exam. PSYCH: Normal mood, normal affect. SKIN: Warm, Dry, normal turgor, no rashes or lesions noted on exposed skin TRAVEL OUTSIDE OF THE [place] IN LAST 30 DAYS: No - Related Data Allergies/Adverse Reactions: No Known Allergies Allergy (Verified 07/30/18 13:09) Past Medical History - Social History Smoking Status: Never Smoker Frequency of alcohol use: None Drug Abuse: None Family History: Hypertension Patient has suicidal ideation: No Patient has homicidal ideation: No - Past Medical History Cardiac Medical History: Reports: Hx Heart Attack - "about 2 years ago", Hx Hypercholesterolemia, Hx Hypertension Denies: Hx Coronary Artery Disease Pulmonary Medical History: 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 Denies: Hx Asthma, Hx Bronchitis, Hx Pneumonia Comment Only: Hx Tuberculosis - unknown Neurological Medical History: Denies: Hx Cerebrovascular Accident, Hx Seizures Renal/ Medical History: Denies: Hx Peritoneal Dialysis GI Medical History: Reports: Hx Gastroesophageal Reflux Disease Musculoskeletal Medical History: Denies Hx Arthritis Psychiatric Medical History: Reports: Hx Depression, Hx Schizophrenia Past Surgical History: Reports: Hx Hysterectomy, Hx Orthopedic Surgery - left knee - Immunizations Hx Diphtheria, Pertussis, Tetanus Vaccination: No Hx Pneumococcal Vaccination: 01/01/18 Physical Exam - Vital signs Vitals: Temp Pulse Resp BP Pulse Ox 98.2 F 68 16 119/79 99 07/30/18 13:16 07/30/18 13:16 07/30/18 13:16 07/30/18 13:16 07/30/18 13:16 Course - Re-evaluation Re-evalutation: Patient seen and examined vital signs reviewed. Laboratory data and/or imaging were ordered as appropriate for the patient's presenting symptoms and complaint, with consideration of any critical or life threatening conditions that may be associated with their obtained history and exam as noted above Results were reviewed when available and demonstrated negative imaging for any acute injuries from CT imaging of the head and cervical spine, pelvis, back and chest. The patient was re-evaluated and was stable, pain was controlled, patient was ambulatory in the emergency department, without any noted ataxia. Patient's Depakote level was normal as well. Evaluation was most consistent with fall, knee pain, dizziness, will recommend PRN meclizine if needed. Results were discussed with the patient at this point, after careful consideration I feel that that patient can be discharged from the emergency department, the patient was educated treatments and reasons to return to the emergency department based on their presumed diagnosis as noted above, they were advised to followup with a primary care physician in 2-3 days. Patient was agreeable to plan of care. *Note is created using voice recognition software and may contain spelling, synt ax or grammatical errors. Laboratory 07/30/18 07/30/18 07/30/18 14:05 14:05 14:05 WBC 10.6 H RBC 4.29 Hgb 12.7 Hct 38.4 MCV 89 MCH 29.5 MCHC 33.0 RDW 15.5 H Plt Count 305 Seg Neutrophils % 56.9 Lymphocytes % 24.5 Monocytes % 9.0 Eosinophils % 9.0 H Basophils % 0.6 Absolute Neutrophils 6.0 Absolute Lymphocytes 2.6 Absolute Monocytes 0.9 Absolute Eosinophils 1.0 H Absolute Basophils 0.1 PT 13.5 INR 0.98 APTT 31.6 Sodium 142.6 Potassium 4.2 Chloride 111 H Carbon Dioxide 21 L Anion Gap 11 BUN 13 Creatinine 0.85 Est GFR ( Amer) > 60 Est GFR (Non-Af Amer) > 60 Glucose 92 Calcium 9.7 Magnesium 2.0 Total Bilirubin 0.3 Direct Bilirubin 0.3 Neonat Total Bilirubin Not Reportable Neonat Direct Bilirubin Not Reportable Neonat Indirect Bili Not Reportable AST 16 ALT 13 Alkaline Phosphatase 104 Troponin I Total Protein 6.7 Albumin 3.7 Valproic Acid 07/30/18 07/30/18 14:05 14:05 WBC RBC Hgb Hct MCV MCH MCHC RDW Plt Count Seg Neutrophils % Lymphocytes % Monocytes % Eosinophils % Basophils % Absolute Neutrophils Absolute Lymphocytes Absolute Monocytes Absolute Eosinophils Absolute Basophils PT INR APTT Sodium Potassium Chloride Carbon Dioxide Anion Gap BUN Creatinine Est GFR ( Amer) Est GFR (Non-Af Amer) Glucose Calcium Magnesium Total Bilirubin Direct Bilirubin Neonat Total Bilirubin Neonat Direct Bilirubin Neonat Indirect Bili AST ALT Alkaline Phosphatase Troponin I < 0.012 Total Protein Albumin Valproic Acid 63.[address] 07/30/18 13:38 IMPRESSION: No fracture or static subluxation of the cervical spine. Head CT 07/30/18 13:38 IMPRESSION: No acute posttraumatic changes EVIDENCE OF ACUTE STROKE: NO. Chest X-Ray 07/30/18 13:39 IMPRESSION: No acute abnormality of the lungs in AP projection. Lumbar Spine X-Ray 07/30/18 13:39 IMPRESSION: Chronic appearing L1 and L5 compression deformities Infrarenal abdominal aorta measures 3 cm in diameter Pelvis X-Ray 07/30/18 13:39 IMPRESSION: NEGATIVE STUDY OF THE PELVIS. - Vital Signs Vital signs: Temp Pulse Resp BP Pulse Ox 98.2 F 68 22 H 139/79 H 99 07/30/18 13:16 07/30/18 13:16 07/30/18 15:02 07/30/18 15:02 07/30/18 15:02 - Laboratory Result Diagrams: 07/30/18 14:05 07/30/18 14:05 Laboratory results interpreted by me: 07/30/18 07/30/18 14:05 14:05 WBC 10.6 H RDW 15.5 H Eosinophils % 9.0 H Absolute Eosinophils 1.0 H Chloride 111 H Carbon Dioxide 21 L Discharge - Discharge Clinical Impression: Dizziness Fall Qualifiers: Encounter type: initial encounter Qualified Code(s): W19.XXXA - Unspecified fall, initial encounter Knee pain, left Qualifiers: Chronicity: chronic Qualified Code(s): M25.562 - Pain in left knee; G89.29 - Other chronic pain Condition: Stable Disposition: HOME-SNF (ED ONLY) Instructions: Dizziness ([facility]) Additional Instructions: Please follow-up with your primary care physician, take the meclizine if needed for dizziness, if your symptoms worsen or do not improve, do not hesitate to return to the emergency department. Prescriptions: Meclizine HCl [Antivert 25 mg Tablet] 25 mg PO Q8H PRN #30 tablet PRN Reason: Dizziness Referrals: MARILY BURK MD [Primary Care Provider] - Follow up as needed
--- NOTE | 2018-07-30 16:18 | EKG REPORT ---
SEVERITY:- ABNORMAL ECG - SINUS RHYTHM PROBABLE LVH WITH SECONDARY REPOL ABNRM : Confirmed by: Melisa Biswas MD 30-Jul-2018 16:17:08
[2018-07-30 22:32] VITALS: BP 174/95
== END 2018-07-30 22:41 ==
LOC: ER 12:52
DX: R42 Dizziness and giddiness (principal); R26.2 Difficulty in walking, not elsewhere classified; W06.XXXA Fall from bed, initial encounter; G89.29 Other chronic pain; M25.562 Pain in left knee; E78.5 Hyperlipidemia, unspecified; I10 Essential (primary) hypertension; I25.2 Old myocardial infarction; Z90.710 Acquired absence of both cervix and uterus
CPT/HCPCS: 36415; 70450; 71045; 72110; 72125; 72170; 80053; 80164; 83735; 84484; 85025; 85610; 85730; 93005; 93010; 99285

== ENCOUNTER → 2018-08-17 | Outpatient (CLI) | payer MEDICARE, MEDICAID | LOC: OD 11:57 | PROVIDERS: ATTEND Physician Assistant | DX: F33.1 Major depressive disorder, recurrent, moderate (principal); F41.0 Panic disorder [episodic paroxysmal anxiety] | CPT/HCPCS: 36415; 80164 ==

== ENCOUNTER 2018-08-20 04:11 | Emergency (ER) | payer MEDICARE, MEDICAID ==
--- NOTE | 2018-08-20 05:45 | ER Document Report ---
ED General - General Chief Complaint: Fall Injury Stated Complaint: FALL Time Seen by Provider: 08/20/18 05:37 Primary Care Provider: RAFAEL CHEUNG PA-C [Primary Care Provider] - Follow up as needed Notes: 57-year-old lady with history of falls and recurrent left knee surgeries presents with fall, legs gave out, this difficult for her, but an hour ago with inability to walk. She complains of left knee Pain worse when bending the knee. No distal numbness tingling and no other trauma. TRAVEL OUTSIDE OF THE [place] 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 Denies: Hx Asthma, Hx Bronchitis, Hx Pneumonia Comment Only: Hx Tuberculosis - unknown Neurological Medical History: Denies: Hx Cerebrovascular Accident, Hx Seizures Renal/ Medical History: Denies: Hx Peritoneal Dialysis GI Medical History: Reports: Hx Gastroesophageal Reflux Disease Musculoskeletal Medical History: Denies Hx Arthritis Psychiatric Medical History: Reports: Hx Depression, Hx Schizophrenia Past Surgical History: Reports: Hx Hysterectomy, Hx Orthopedic Surgery - left knee - Immunizations Hx Diphtheria, Pertussis, Tetanus Vaccination: No Hx Pneumococcal Vaccination: 01/01/18 Review of Systems - Review of Systems Notes: REVIEW OF SYSTEMS GEN: Denies fever, chills, weight loss ENT: Denies sore throat, nasal discharge, ear pain EYES: Denies blurry vision, eye pain, discharge CV: Denies chest pain, palpitations, edema RESP: Denies cough, shortness of breath, wheezing GI: Denies abdominal pain, nausea, vomiting, diarrhea MSK: Left knee pain, SKIN: Denies rash, skin lesions LYMPH: Denies swollen glands/lymph nodes NEURO: Denies headache, focal weakness or numbness, dizziness PSYCH: Denies depression, suicidal or homicidal ideation PHYSICAL EXAMINATION General: No acute distress, well-nourished Head: Atraumatic, normocephalic ENT: Mouth normal, oropharynx moist, lips normal Eyes: Conjunctiva normal, pupils equal, lids normal Neck: No JVD, supple, no guarding Resp: No resp distress, equal chest rise GI: Nondistended, no guarding Back: No midline or CVA tenderness Ext: Chronic left knee swelling and deformity with mild patellar tenderness. Extensor mechanism intact. Multiple surgical scars. No warmth or redness. Skin: Well-perfused, no rash Neuro: Awake, alert. Face symmetric. Physical Exam - Vital signs Vitals: Temp Pulse Resp BP Pulse Ox 97.6 F 70 18 170/80 H 97 08/20/18 04:15 08/20/18 04:15 08/20/18 04:15 08/20/18 04:15 08/20/18 04:15 Course - Re-evaluation Re-evalutation: 08/20/18 11:52 Fall from standingno evidence of syncope or head trauma. Left knee trauma. X- ray shows comminuted upper patella fracture but the extensor mechanism is intac t. Pain was well controlled, but immobilizer was placed and the patient was asked to follow-up with her own orthopedist. I have discussed with the patient there likely diagnosis, aftercare plan, follow-up plans and my usual and customary return precautions. They verbalized understanding of this. - Vital Signs Vital signs: Temp Pulse Resp BP Pulse Ox 97.6 F 86 18 201/104 H 20 L 08/20/18 09:02 08/20/18 09:02 08/20/18 04:15 08/20/18 09:02 08/20/18 09:02 - Diagnostic Test Radiology reviewed: Image reviewed, Reports reviewed Discharge - Discharge Clinical Impression: Contusion of left knee Qualifiers: Encounter type: initial encounter Qualified Code(s): S80.02XA - Contusion of left knee, initial encounter Patella fracture Qualifiers: Encounter type: initial encounter Fracture type: closed Condition: Good Disposition: HOME, SELF-CARE Instructions: Contusion ([facility]), Fractured Patella ([facility]) Additional Instructions: There is a small crack in your kneecap on the left, patella fracture. Please follow-up with your normal orthopedist within 5 to 7 days regarding this. Referrals: RAFAEL CEHUNG PA-C [Primary Care Provider] - Follow up as needed
--- NOTE | 2018-08-20 06:44 | RADIOLOGY REPORT (SQ) ---
EXAM DESCRIPTION: XR KNEE 4 OR MORE VIEWS COMPLETED DATE/TME: 08/20/2018 04:27 CLINICAL HISTORY: 57 years, Female, Fell from standing COMPARISON: None. NUMBER OF VIEWS: Four TECHNIQUE: Four views of the left knee LIMITATIONS: None. FINDINGS: There is a displaced and comminuted fracture involving the superior pole of the patella. There is surrounding soft tissue swelling. The distal femur and proximal tibia and fibula appear intact. Vascular calcifications are noted. IMPRESSION: Displaced and comminuted patellar fracture. copyright 2010 [employer]- All Rights Reserved
[2018-08-20 09:04] VITALS: BP 201/104
== END 2018-08-20 09:04 | disposition home or self-care (01) ==
LOC: ER 04:11
DX: S80.02XA Contusion of left knee, initial encounter (principal); W18.30XA Fall on same level, unspecified, initial encounter; I10 Essential (primary) hypertension; E78.00 Pure hypercholesterolemia, unspecified; Z98.890 Other specified postprocedural states; I25.2 Old myocardial infarction; Z90.710 Acquired absence of both cervix and uterus
CPT/HCPCS: 99283; 73564; L1830

== ENCOUNTER 2018-10-09 20:51 | Emergency (ER) | payer MEDICARE, MEDICAID ==
--- NOTE | 2018-10-09 21:28 | ER Document Report ---
ED Fall - General Chief Complaint: Fall Stated Complaint: FALL/LEFT KNEE PAIN Time Seen by Provider: 10/09/18 20:56 Primary Care Provider: RAFAEL CHEUNG PA-C [Primary Care Provider] - Follow up as needed Notes: 57-year-old female to emerge from chief complaint of pain in her left knee. States that she tosses and turns in tonight she tossed and turned and fell right out of the bed. She did not hit her head but her neck twisted and she has some pain in her neck. Also having some pain in the left knee. Has had multiple surgeries on the left knee. Once an x-ray of her neck and knee. Denies any loss of consciousness. Denies any other major symptoms at this time. TRAVEL OUTSIDE OF THE [place] IN LAST 30 DAYS: No - HPI Occurred: Just prior to arrival Where: Care Home Location of injury/pain: Knee - Absolutely, Neck Quality of pain: Dull Severity: Moderate Pain Level: 1 Prehospital interventions: C-collar - Related data Allergies/Adverse Reactions: No Known Allergies Allergy (Verified 07/30/18 13:09) Past Medical History - General Information source: Patient - Social History Smoking Status: Current Every Day Smoker Cigarette use (# per day): Yes Frequency of alcohol use: None Drug Abuse: None Lives with: Care Home Family History: Reviewed & Not Pertinent, Hypertension Patient has suicidal ideation: No Patient has homicidal ideation: No - Past Medical History Cardiac Medical History: Reports: Hx Heart Attack - "about 2 years ago", Hx Hypercholesterolemia, Hx Hypertension Denies: Hx Coronary Artery Disease Pulmonary Medical History: 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 Denies: Hx Asthma, Hx Bronchitis, Hx Pneumonia Comment Only: Hx Tuberculosis - unknown Neurological Medical History: Denies: Hx Cerebrovascular Accident, Hx Seizures Renal/ Medical History: Denies: Hx Peritoneal Dialysis GI Medical History: Reports: Hx Gastroesophageal Reflux Disease Musculoskeletal Medical History: Denies Hx Arthritis Psychiatric Medical History: Reports: Hx Depression, Hx Schizophrenia Past Surgical History: Reports: Hx Hysterectomy, Hx Orthopedic Surgery - left knee - Immunizations Hx Diphtheria, Pertussis, Tetanus Vaccination: No Hx Pneumococcal Vaccination: 01/01/18 Review of Systems - Review of Systems Notes: Constitutional: denies: Chills, Diaphoresis, Fever, Malaise, Weakness EENT: denies: Eye discharge, Blurred vision, Tearing, Double vision, Nose congestion, Nose discharge, Throat swelling, Mouth pain Cardiovascular: denies: Palpitations, Heart racing, Orthopnea, Dyspnea, Chest pain Respiratory: denies: Cough, Hurts to breathe, Wheezing, Shortness of breath Gastrointestinal: denies: Abdominal pain, Diarrhea, Nausea, Vomiting, Black stools, bright red blood in stool Genitourinary: denies: Burning, Dysuria, Discharge, Frequency, Flank pain, Hematuria Musculoskeletal: Left knee pain, neck pain, no swelling. Chronic back pain Hematologic/Lymphatic: denies: Anemia, Easy bleeding, Easy bruising, Blood clots Neurological/Psychological: denies: Confusion, Dementia, Depression, Loss of consciousness Skin: No lesions, no masses, no skin breakdown, no abscesses Physical Exam - Vital signs Vitals: Temp 97.9 F 10/09/18 20:55 Interpretation: Normal - General General appearance: Appears well, Alert - HEENT Head: Normocephalic, Atraumatic Eyes: Normal Pupils: PERRL Neck: Normal, Other - There is some mild tenderness to palpation at C5 midline. No step-offs. - Respiratory Respiratory status: No respiratory distress Chest status: Nontender Breath sounds: Normal Chest palpation: Normal - Cardiovascular Rhythm: Regular Heart sounds: Normal auscultation Murmur: No - Abdominal Inspection: Normal Distension: No distension Bowel sounds: Normal Tenderness: Nontender Organomegaly: No organomegaly - Back Back: Normal, Nontender - Extremities General upper extremity: Normal inspection, Nontender, Normal color, Normal ROM, Normal temperature General lower extremity: Other - Mild tenderness to palpation to the left knee. There is a midline left knee scar. There is no deformity. Pulses are present in the lower extremities and the dorsalis pedis bilaterally. No: Braydon's sign - Neurological Neuro grossly intact: Yes Cognition: Normal Orientation: AAOx4 Jenna Coma Scale Eye Opening: Spontaneous Jenna Coma Scale Verbal: Oriented Jenna Coma Scale Motor: Obeys Commands [place] Coma Scale Total: 15 Speech: Normal Motor strength normal: LUE, RUE, LLE, RLE Sensory: Normal - Psychological Associated symptoms: Normal affect, Normal mood - Skin Skin Temperature: Warm Skin Moisture: Dry Skin Color: Normal Course - Re-evaluation Re-evalutation: 10/09/18 23:02 Cervical Spine X-Ray 10/09/18 21:23 IMPRESSION: 1. No acute abnormality of the visualized cervical spine by plain film criteria. copyright 2010 [employer]- All Rights Reserved Knee X-Ray 10/09/18 21:23 IMPRESSION: 1. No acute fractures identified. 2. Redemonstrated proximal to mid comminuted distracted patellar fracture without significant change. copyright 2010 [employer]- All Rights Reserved - Vital Signs Vital signs: Temp Pulse Resp BP Pulse Ox 97.9 F 20 123/73 10/09/18 20:55 10/09/18 21:11 10/09/18 21:12 Discharge - Discharge Clinical Impression: Left knee pain Qualifiers: Chronicity: unspecified Qualified Code(s): M25.562 - Pain in left knee Condition: Good Disposition: HOME, SELF-CARE Instructions: Sprained Knee ([facility]) Additional Instructions: Follow-up with your regular doctor. Return for any worsening symptoms or concern. No fractures were identified today. Referrals: RAFAEL CHEUNG PA-C [Primary Care Provider] - Follow up as needed
--- NOTE | 2018-10-09 22:43 | RADIOLOGY REPORT (SQ) ---
EXAM DESCRIPTION: XR CERVICAL SPINE 2 - 3 VIEWS COMPLETED DATE/TME: 10/09/2018 21:23 CLINICAL HISTORY: 57 years, Female, fall, pain COMPARISON: 07/30/2018 FINDINGS: 2 views of the cervical spine. Atlantoaxial and atlantodental intervals preserved. Odontoid process is intact. No cortical step-offs or acute subluxation. Suboptimal evaluation of C7 due to overlying soft tissues. Intervertebral disc height relatively well-preserved. Vertebral body height preserved. No widening of the prevertebral soft tissues. Visualized lung apices are clear. IMPRESSION: 1. No acute abnormality of the visualized cervical spine by plain film criteria. copyright 2010 [employer]- All Rights Reserved
--- NOTE | 2018-10-09 22:45 | RADIOLOGY REPORT (SQ) ---
EXAM DESCRIPTION: XR KNEE 3 VIEWS COMPLETED DATE/TME: 10/09/2018 21:23 CLINICAL HISTORY: 57 years, Female, fall, pain COMPARISON: 09/29/2018 FINDINGS: 3 views of the left knee. Redemonstrated comminuted distracted proximal to mid patellar fracture without significant change. Atherosclerotic vascular calcification. Osteopenia. No new fractures identified. IMPRESSION: 1. No acute fractures identified. 2. Redemonstrated proximal to mid comminuted distracted patellar fracture without significant change. copyright 2010 [employer]- All Rights Reserved
[2018-10-10 00:12] VITALS: BP 129/71
== END 2018-10-10 01:19 | disposition home or self-care (01) ==
LOC: ER 20:51
DX: M25.562 Pain in left knee (principal); M54.2 Cervicalgia; F17.210 Nicotine dependence, cigarettes, uncomplicated; E78.00 Pure hypercholesterolemia, unspecified; I10 Essential (primary) hypertension; G89.29 Other chronic pain; M54.9 Dorsalgia, unspecified; Z90.710 Acquired absence of both cervix and uterus; I25.2 Old myocardial infarction
CPT/HCPCS: 72040; 99283